=== PATIENT | male | born 1960 | race African-American/Black ===

== ENCOUNTER 2016-07-21 14:51 | Inpatient (IN) | payer OTHER ==
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
[2016-07-21] MEDS ORDERED: MAG HYDROX/AL HYDROX/SIMETH 30 ML UNIT-DOSE CUP PO PRN (17:17)
[2016-07-21] MEDS ORDERED: LOPERAMIDE HCL 2 MG CAPSULE PO PRN (17:17)
[2016-07-21] MEDS ORDERED: guaiFENesin/D-METHORPHAN HB 10 ML UNIT-DOSE CUPS PO PRN (17:17)
[2016-07-21] MEDS ORDERED: NICOTINE POLACRILEX 2 MG GUM BUC PRN (17:17)
[2016-07-21] MEDS ORDERED: chlordiazePOXIDE HCL 25 MG CAPSULE PO PRN (17:17)
[2016-07-21] MEDS ORDERED: MENTHOL/PHENOL 1 EACH UD MM PRN (17:17)
[2016-07-21] MEDS ORDERED: MAGNESIUM CITRATE 300 ML BOTTLE PO PRN (17:17)
[2016-07-21] MEDS ORDERED: MAGNESIUM HYDROX 2400MG/30ML ORAL SUSPENSION 30 ML CUP PO PRN (17:17)
[2016-07-21] MEDS ORDERED: hydrOXYzine PAMOATE 50 MG CAPSULE (FP) PO PRN (17:17)
[2016-07-21] MEDS ORDERED: P-EPHED 60MG/TRIPROLIDI 2.5MG TABLET PO PRN (17:17)
[2016-07-21] MEDS ORDERED: cloNIDine HCL 0.1 MG TABLET PO PRN (17:21)
[2016-07-21] MEDS ORDERED: ALBUTEROL SO4 6.7 GM HFA INHALER IH PRN (17:22)
[2016-07-21] MEDS ORDERED: ALBUTEROL SO4 2.5/IPRATROPIUM 0.5 INH SOL 3 ML VIAL.NEB. NEB PRN (17:22)
[2016-07-21] MEDS ORDERED: CYCLOBENZAPRINE HCL 10 MG TABLET (FP) PO PRN (17:29)
[2016-07-21 17:34] VITALS: BMI 28.3
[2016-07-21] MEDS ORDERED: AZITHROMYCIN 250 MG TABLET (FP) PO ONE (17:45)
[2016-07-21] MEDS ORDERED: chlordiazePOXIDE HCL 25 MG CAPSULE PO ONE (17:45)
[2016-07-21] MEDS: predniSONE 20 MG TABLET (UD) PO SCH (18:12)
[2016-07-21] MEDS: NAPROXEN 500 MG TABLET (FP) PO PRN (18:13)
[2016-07-21] MEDS ORDERED: PNEUMOCOCCAL 23 VACCINE 0.5 ML VIAL IM ONE (18:58)
--- NOTE | 2016-07-21 19:00 | PN ---
[facility] Progress Note Note: 1816 PM RECEIVED PHARMACIST CALL PATIENT HAS LUNG PROBLEM SHOULD NOT RECEIVE PNEUMONIA 13 VACCINE PNEUMOVAX ORDER CONTINUE DETOX
[2016-07-21] MEDS ORDERED: diphenhydrAMINE HCL 50 MG CAPSULE PO PRN (22:00)
[2016-07-21] MEDS: RANITIDINE HCL 150 MG TABLET (FP) PO SCH (23:11)
[2016-07-21] MEDS: THIAMINE HCL 100 MG TABLET (FP) PO SCH (23:11)
[2016-07-21] MEDS: GABAPENTIN 100 MG CAPSULE (FP) PO SCH (23:11)
[2016-07-21] MEDS: chlordiazePOXIDE HCL 25 MG CAPSULE PO SCH (23:11)
[2016-07-21 23:14] LABS: URINE APPEARANCE CLEAR; URINE BILIRUBIN NEGATIVE (NEGATIVE); URINE BLOOD NEGATIVE (NEGATIVE); URINE COLOR STRAW; URINE GLUCOSE (UA) NEGATIVE (NEGATIVE); URINE KETONE NEGATIVE (NEGATIVE); URINE LEUK ESTERASE NEGATIVE (NEGATIVE); URINE NITRITE NEGATIVE (NEGATIVE); URINE PROTEIN NEGATIVE (NEGATIVE); URINE UROBILINOGEN NEGATIVE E.U./dl (0.2-1.0)
[2016-07-22] MEDS: chlordiazePOXIDE HCL 25 MG CAPSULE PO SCH ×4 (06:45→23:39)
[2016-07-22] MEDS: GABAPENTIN 100 MG CAPSULE (FP) PO SCH ×3 (06:47→23:39)
[2016-07-22 10:32] LABS: MCH 27.9 pg (25.7-33.7); MCHC 33.1 g/dl (32.0-35.9); MEAN CELL VOLUME 84.3 fl (80-96); PLATELET COUNT 467 K/MM3 (134-434); RDW 15.1 % (11.9-15.9); WHITE BLOOD COUNT 5.7 K/mm3 (4.0-10.0)
[2016-07-22] MEDS: RANITIDINE HCL 150 MG TABLET (FP) PO SCH ×2 (11:00→23:39)
[2016-07-22] MEDS: PRENATAL VITAMINS W/ FOLIC ACID TABLET (FP) PO SCH (11:00)
[2016-07-22] MEDS: TAMSULOSIN HCL 0.4 MG CAP.ER.24H (FP) PO SCH (11:00)
[2016-07-22] MEDS: AZITHROMYCIN 250 MG TABLET (FP) PO SCH (11:00)
[2016-07-22] MEDS: NICOTINE 14 MG/24 HOURS TOPICAL PATCH TD SCH (11:00)
[2016-07-22] MEDS: predniSONE 20 MG TABLET (UD) PO SCH (11:00)
[2016-07-22] MEDS: FLUTICASONE PROP 0.05% 16 GM NASAL SPRAY NS SCH (11:00)
[2016-07-22] MEDS: amLODIPine BESYLATE 5 MG TABLET (FP) PO SCH (11:00)
[2016-07-22 11:03] LABS: ALBUMIN 3.4 g/dl (3.4-5.0); ALK PHOS 76 U/L (45-117); ANION GAP 8 (8-16); BILIRUBIN,TOTAL 0.5 mg/dL (0.2-1.0); CALCIUM 9.1 mg/dL (8.5-10.1); CO2 27 mmol/L (21-32); CREATININE 0.6 mg/dL (0.7-1.3); GLUCOSE,RANDOM 122 mg/dL (74-106); SGOT/AST 16 U/L (15-37); SGPT/ALT 25 U/L (12-78); TOT PROT 6.6 g/dl (6.4-8.2)
[2016-07-22 11:25] LABS: HIV 1 & 2 AB NEGATIVE; HIV 1 AGp24 NEGATIVE
[2016-07-22] MEDS ORDERED: PNEUMOC 13-VAL CONJ-DIP CRM/PF 0.5 ML DISP.SYRIN IM ONE (12:00)
[2016-07-22] MEDS ORDERED: INFLUENZA VACCINE 45 MCG/0.5 ML (MDV 16-17) IM ONE (12:00)
--- NOTE | 2016-07-22 12:35 | PN ---
[facility] CIWA - CIWA Score Nausea/Vomitin Muscle Tremors: 3 Anxiety: 2 Agitation: 2 Paroxysmal Sweats: 1-Minimal Palms Moist Orientation: 0-Oriented Tacttile Disturbances: 1-Very Mild Itch/Numbness Auditory Disturbances: 1-Very Mild Visual Disturbances: 1-Very Mild Sensitivity Headache: 2-Mild CIWA-Ar Total Score: 16 S Progress Note (SOAP) Subjective: alert,irritable,anxious,interrupted sleep,tremor Objective: 07/22/16 12:32 Vital Signs Temperature 97.9 F 07/22/16 06:00 Pulse Rate 77 07/22/16 06:00 Respiratory Rate 18 07/22/16 06:00 Blood Pressure 134/71 07/22/16 06:00 O2 Sat by Pulse Oximetry (%) ekg nsr,inverted t in avl no chest pain,no sob,no dizziness Laboratory Last Values WBC 5.7 K/mm3 (4.0-10.0) 07/22/16 07:50 RBC 4.62 M/mm3 (4.00-5.60) 07/22/16 07:50 Hgb 12.9 GM/dL (11.7-16.9) 07/22/16 07:50 Hct 39.0 % (35.4-49) 07/22/16 07:50 MCV 84.3 fl (80-96) 07/22/16 07:50 MCHC 33.1 g/dl (32.0-35.9) 07/22/16 07:50 RDW 15.1 % (11.9-15.9) 07/22/16 07:50 Plt Count 467 K/MM3 (134-434) H D 07/22/16 07:50 MPV 7.0 fl (7.5-11.1) L 07/22/16 07:50 Sodium 129 mmol/L (136-145) L 07/22/16 07:50 Potassium 4.1 mmol/L (3.5-5.1) 07/22/16 07:50 Chloride 94 mmol/L (98-107) L 07/22/16 07:50 Carbon Dioxide 27 mmol/L (21-32) 07/22/16 07:50 Anion Gap 8 (8-16) 07/22/16 07:50 BUN 11 mg/dL (7-18) 07/22/16 07:50 Creatinine 0.6 mg/dL (0.7-1.3) L D 07/22/16 07:50 Creat Clearance w eGFR > 60 (>60) 07/22/16 07:50 POC Glucometer 107 UNITS (()) 07/22/16 06:41 Random Glucose 122 mg/dL (74-106) H D 07/22/16 07:50 Calcium 9.1 mg/dL (8.5-10.1) 07/22/16 07:50 Total Bilirubin 0.5 mg/dL (0.2-1.0) D 07/22/16 07:50 AST 16 U/L (15-37) D 07/22/16 07:50 ALT 25 U/L (12-78) D 07/22/16 07:50 Alkaline Phosphatase 76 U/L (45-117) D 07/22/16 07:50 Total Protein 6.6 g/dl (6.4-8.2) 07/22/16 07:50 Albumin 3.4 g/dl (3.4-5.0) 07/22/16 07:50 Urine Color Straw 07/21/16 19:51 Urine Appearance Clear 07/21/16 19:51 Urine pH 7.0 (5.0-8.0) 07/21/16 19:51 Ur Specific [place] 1.006 (1.001-1.035) 07/21/16 19:51 Urine Protein Negative (NEGATIVE) 07/21/16 19:51 Urine Glucose (UA) Negative (NEGATIVE) 07/21/16 19:51 Urine Ketones Negative (NEGATIVE) 07/21/16 19:51 Urine Blood Negative (NEGATIVE) 07/21/16 19:51 Urine Nitrite Negative (NEGATIVE) 07/21/16 19:51 Urine Bilirubin Negative (NEGATIVE) 07/21/16 19:51 Urine Urobilinogen Negative E.U./dl (0.2-1.0) 07/21/16 19:51 Ur Leukocyte Esterase Negative (NEGATIVE) 07/21/16 19:51 RPR Titer Nonreactive (NONREACTIVE) 07/22/16 07:50 HIV 1&2 Antibody Screen Negative 07/22/16 07:50 HIV P24 Antigen Negative 07/22/16 07:50 Assessment: 07/22/16 12:34 withdrawal symptom Plan: continue detox,repeat bmp in am,initial na 129
--- NOTE | 2016-07-22 17:41 | CONSULT ---
[facility] Psychiatric Consult - Data Date of interview: 07/22/16 Admission source: [facility] Identifying data: This is one of multiple admissions to [facility] for this 55 y/ o AA male seeking detox treatment on for alcohol dependence.Patient is single without children,homeless,unemployed and supported on SSI benefits. Substance Abuse History: - Smoking Cessation. Smoking history: Current every day smoker. Have you smoked in the past 12 months: Yes. Aproximately how many cigarettes per day: 10. Cigars Per Day: 0. Hx Chewing Tobacco Use: No. Initiated information on smoking cessation: Yes. 'Breaking Loose' booklet given : 07/21/16. - Substance & Tx. History. Hx Alcohol Use: Yes. Hx Substance Use : No. Substance Use Type: Alcohol. Hx Substance Use Treatment: Yes. - Substances Abused. Alcohol. Route: Oral. Frequency: Daily. Amount used: 6 -8 cans of beers 24 oz. Age of first use: 14. Date of Last Use: 07/21/16. Confirmed by patient. Medical History: Significant for a history of hypertension,bronchial asthma, diabetes mellitus,peripheral neuropathy and past treatment for syphilis. Psychiatric History: Diagnosed with paranoid schizophrenia.First psychiatric hospitalization at age 20 but he was seen by a psychiatrist,for the first time, at age 12.Noted family history of Schizophrenia (father and two siblings).Mr East admits to multiple psychiatric hospitalizations ([facility], [place] and [facility]).He states that he gets his outpatient psychiatric services at [facility] (discharged from that institution a few days ago).Patient reports being on prolixin 20 mg daily and cogentin.He denies history of suicide attempts. Physical/Sexual Abuse/Trauma History: Patient denies. Mental Status Exam - Mental Status Exam Alert and Oriented to: Time, Place, Person Cognitive Function: Grossly Intact Patient Appearance: Unkempt, Disheveled Mood: Withdrawn, Hopeful Affect: Blunted Patient Behavior: Fatigued, Appropriate, Cooperative Speech Pattern: Clear, Appropriate Voice Loudness: Normal Thought Process: Goal Oriented Thought Disorder: Bizarre Hallucinations: Denies Suicidal Ideation: Denies Homicidal Ideation: Denies Insight/Judgement: Poor Sleep: Well Appetite: Good Muscle strength/Tone: Normal Gait/Station: Normal Psychiatric Findings - Problem List ([place] 1, 2,3) (1) Alcohol dependence with uncomplicated withdrawal Current Visit: Yes Status: Acute (2) Nicotine dependence Current Visit: Yes Status: Acute Qualifiers: Nicotine product type: cigarettes Substance use status: uncomplicated Qualified Code(s): F17.210 - Nicotine dependence, cigarettes, uncomplicated (3) Paranoid schizophrenia Current Visit: Yes Status: Chronic (4) Arthritis Current Visit: Yes Status: Chronic Comment: NEPROXIN (5) Asthma Current Visit: Yes Status: Chronic Qualifiers: Asthma severity: mild persistent Asthma complication type: with status asthmaticus Qualified Code(s): J45.32 - Mild persistent asthma with status asthmaticus Comment: VENTOLIN+NEBULIZER+PREDNISON+AZITHROMYCIN (6) BPH (benign prostatic hyperplasia) Current Visit: Yes Status: Chronic Qualifiers: Prostatic enlargement morphology: non-nodular Lower urinary tract symptom presence: symptoms present Qualified Code(s): N40.1 - Enlarged prostate with lower urinary tract symptoms Comment: TAMSULOSIN 0.4 MG EXTEND (7) Neuropathy Current Visit: Yes Status: Chronic Comment: NEURONTIN 100 MG TID (8) GERD (gastroesophageal reflux disease) Current Visit: Yes Status: Chronic Qualifiers: Esophagitis presence: without esophagitis Qualified Code(s): K21.9 - Gastro-esophageal reflux disease without esophagitis Comment: ZANTAC (9) Diabetes mellitus Current Visit: Yes Status: Chronic Qualifiers: Diabetes mellitus type: type 2 Diabetes mellitus complication status: with neurologic complications Diabetes mellitus complication detail: with unspecified neuropathy Diabetes mellitus fci insulin use: without long term care social worker use Qualified Code(s): E11.40 - Type 2 diabetes mellitus with diabetic neuropathy, unspecified; Z79.4 - group home (current) use of insulin Comment: FINGER STICK 137 NOT ON ANY DM MEDICATION FINGER STICK OD (10) Essential hypertension Current Visit: Yes Status: Chronic Comment: AMLODIPINE CLONIDIN PRN - Initial Treatment Plan Initial Treatment Plan: Psychoeducation.Detoxification.Medications:prolixin 10 mg po bid + cogentin 0.5 mg po bid.Side effects/ benefits discussed with patient.Made aware of risks of abnormal involuntary movements,dyskinesias, neuroleptic malignant syndrome akathisia Prolixin) and anticholinergic manifestations (dry mouth,constipation,urinary hesitancy,blurred vision) .Patient indicated his awareness of these risks and he consented (verbally) to take these drugs.Verified by review of pharmacy claims (filled scripts of ).Observation.
[2016-07-22] MEDS: NAPROXEN 500 MG TABLET (FP) PO PRN (17:57)
[2016-07-22] MEDS ORDERED: BENZTROPINE MESYLATE 1 MG TABLET (FP) PO SCH (22:00)
[2016-07-22] MEDS: BENZTROPINE MESYLATE 1 MG TABLET (FP) PO SCH (23:38)
[2016-07-22] MEDS: THIAMINE HCL 100 MG TABLET (FP) PO SCH (23:39)
[2016-07-23] MEDS: chlordiazePOXIDE HCL 25 MG CAPSULE PO SCH ×4 (06:41→17:47)
[2016-07-23] MEDS: GABAPENTIN 100 MG CAPSULE (FP) PO SCH ×3 (06:41→23:24)
[2016-07-23] MEDS ORDERED: BACITRACIN 0.9 GM PACKET ONE (09:32)
[2016-07-23 10:04] LABS: CALCIUM 8.7 mg/dL (8.5-10.1)
[2016-07-23 10:07] LABS: CREATININE 0.7 mg/dL (0.7-1.3)
[2016-07-23] MEDS: PRENATAL VITAMINS W/ FOLIC ACID TABLET (FP) PO SCH (10:55)
[2016-07-23] MEDS: TAMSULOSIN HCL 0.4 MG CAP.ER.24H (FP) PO SCH (10:56)
[2016-07-23] MEDS: amLODIPine BESYLATE 5 MG TABLET (FP) PO SCH (10:56)
[2016-07-23] MEDS: RANITIDINE HCL 150 MG TABLET (FP) PO SCH ×2 (10:56→23:24)
[2016-07-23] MEDS: BENZTROPINE MESYLATE 1 MG TABLET (FP) PO SCH ×2 (10:57→23:24)
[2016-07-23] MEDS: predniSONE 20 MG TABLET (UD) PO SCH (10:57)
[2016-07-23] MEDS: FLUTICASONE PROP 0.05% 16 GM NASAL SPRAY NS SCH (10:59)
[2016-07-23] MEDS: AZITHROMYCIN 250 MG TABLET (FP) PO SCH (11:00)
[2016-07-23] MEDS: NICOTINE 14 MG/24 HOURS TOPICAL PATCH TD SCH (11:00)
--- NOTE | 2016-07-23 12:43 | PN ---
[facility] CIWA - CIWA Score Nausea/Vomitin-No Nausea/No Vomiting Muscle Tremors: 3 Anxiety: 3 Agitation: 4-Moderately Restless Paroxysmal Sweats: 3 Orientation: 0-Oriented Tacttile Disturbances: 0-None Auditory Disturbances: 0-None Visual Disturbances: 0-None Headache: 0-None Present CIWA-Ar Total Score: 13 BHS Progress Note (SOAP) Subjective: ANXIETY,TREMORS,SWEATING,INTERRUPTED SLEEP,RESTLESS Objective: 07/23/16 12:43 Vital Signs - 8 hr 07/23/16 07/23/16 06:00 10:00 Temperature 97.0 F L 96.1 F L Pulse Rate 71 88 Respiratory 18 20 Rate Blood Pressure 127/94 144/88 Laboratory Last Values WBC 5.7 K/mm3 (4.0-10.0) 07/22/16 07:50 RBC 4.62 M/mm3 (4.00-5.60) 07/22/16 07:50 Hgb 12.9 GM/dL (11.7-16.9) 07/22/16 07:50 Hct 39.0 % (35.4-49) 07/22/16 07:50 MCV 84.3 fl (80-96) 07/22/16 07:50 MCHC 33.1 g/dl (32.0-35.9) 07/22/16 07:50 RDW 15.1 % (11.9-15.9) 07/22/16 07:50 Plt Count 467 K/MM3 (134-434) H D 07/22/16 07:50 MPV 7.0 fl (7.5-11.1) L 07/22/16 07:50 Sodium 129 mmol/L (136-145) L 07/23/16 07:20 Potassium 4.1 mmol/L (3.5-5.1) 07/23/16 07:20 Chloride 92 mmol/L (98-107) L 07/23/16 07:20 Carbon Dioxide 27 mmol/L (21-32) 07/23/16 07:20 Anion Gap 10 (8-16) 07/23/16 07:20 BUN 13 mg/dL (7-18) 07/23/16 07:20 Creatinine 0.7 mg/dL (0.7-1.3) 07/23/16 07:20 Creat Clearance w eGFR > 60 (>60) 07/22/16 07:50 POC Glucometer 84 UNITS (()) 07/23/16 06:39 Random Glucose 71 mg/dL (74-106) L D 07/23/16 07:20 Calcium 8.7 mg/dL (8.5-10.1) 07/23/16 07:20 Total Bilirubin 0.5 mg/dL (0.2-1.0) D 07/22/16 07:50 AST 16 U/L (15-37) D 07/22/16 07:50 ALT 25 U/L (12-78) D 07/22/16 07:50 Alkaline Phosphatase 76 U/L (45-117) D 07/22/16 07:50 Total Protein 6.6 g/dl (6.4-8.2) 07/22/16 07:50 Albumin 3.4 g/dl (3.4-5.0) 07/22/16 07:50 Urine Color Straw 07/21/16 19:51 Urine Appearance Clear 07/21/16 19:51 Urine pH 7.0 (5.0-8.0) 07/21/16 19:51 Ur Specific [place] 1.006 (1.001-1.035) 07/21/16 19:51 Urine Protein Negative (NEGATIVE) 07/21/16 19:51 Urine Glucose (UA) Negative (NEGATIVE) 07/21/16 19:51 Urine Ketones Negative (NEGATIVE) 07/21/16 19:51 Urine Blood Negative (NEGATIVE) 07/21/16 19:51 Urine Nitrite Negative (NEGATIVE) 07/21/16 19:51 Urine Bilirubin Negative (NEGATIVE) 07/21/16 19:51 Urine Urobilinogen Negative E.U./dl (0.2-1.0) 07/21/16 19:51 Ur Leukocyte Esterase Negative (NEGATIVE) 07/21/16 19:51 RPR Titer Nonreactive (NONREACTIVE) 07/22/16 07:50 HIV 1&2 Antibody Screen Negative 07/22/16 07:50 HIV P24 Antigen Negative 07/22/16 07:50 LABS NOTED Assessment: 07/23/16 12:44 WITHDRAWAL SX. Plan: CONTINUE DETOX
[2016-07-23] MEDS: THIAMINE HCL 100 MG TABLET (FP) PO SCH (23:24)
[2016-07-23] MEDS: chlordiazePOXIDE 5 MG CAPSULE PO SCH (23:24)
[2016-07-24] MEDS: ACETAMINOPHEN 325 MG TABLET (FP) PO PRN ×2 (04:35→06:23)
[2016-07-24] MEDS: chlordiazePOXIDE 5 MG CAPSULE PO SCH ×3 (06:20→17:45)
[2016-07-24] MEDS: GABAPENTIN 100 MG CAPSULE (FP) PO SCH ×3 (06:20→22:55)
--- NOTE | 2016-07-24 10:39 | PN ---
S Progress Note (SOAP) Subjective: ALERT ,IRRITABLE,ANXIOUS,INTERRUPTED SLEEP,TREMOR,SUPERFICIAL ULCER MEDIAL ASPECT OF RIGHT ANKLE SMALL 0.2CM CLEAN Objective: 07/24/16 10:36 Vital Signs Temperature 98.1 F 07/24/16 10:19 Pulse Rate 114 H 07/24/16 10:19 Respiratory Rate 18 07/24/16 10:19 Blood Pressure 130/63 07/24/16 10:19 O2 Sat by Pulse Oximetry (%) Assessment: 07/24/16 10:38 WITHDRAWAL SYMPTOM Plan: CONTINUE DETOX,DISCHARGE IN AM
[2016-07-24] MEDS: PRENATAL VITAMINS W/ FOLIC ACID TABLET (FP) PO SCH (10:56)
[2016-07-24] MEDS: RANITIDINE HCL 150 MG TABLET (FP) PO SCH ×2 (10:57→22:55)
[2016-07-24] MEDS: predniSONE 20 MG TABLET (UD) PO SCH (10:58)
[2016-07-24] MEDS: BENZTROPINE MESYLATE 1 MG TABLET (FP) PO SCH ×2 (10:58→22:55)
[2016-07-24] MEDS: amLODIPine BESYLATE 5 MG TABLET (FP) PO SCH (10:58)
[2016-07-24] MEDS: TAMSULOSIN HCL 0.4 MG CAP.ER.24H (FP) PO SCH (10:59)
[2016-07-24] MEDS: AZITHROMYCIN 250 MG TABLET (FP) PO SCH (10:59)
[2016-07-24] MEDS: FLUTICASONE PROP 0.05% 16 GM NASAL SPRAY NS SCH (11:00)
[2016-07-24] MEDS: NICOTINE 14 MG/24 HOURS TOPICAL PATCH TD SCH (11:02)
[2016-07-24] MEDS: BACITRACIN 0.9 GM PACKET TP SCH ×2 (11:08→22:55)
[2016-07-24] MEDS: THIAMINE HCL 100 MG TABLET (FP) PO SCH (22:55)
[2016-07-24] MEDS: chlordiazePOXIDE HCL 10 MG CAPSULE PO SCH (23:09)
[2016-07-25] MEDS: chlordiazePOXIDE HCL 10 MG CAPSULE PO SCH (06:06)
[2016-07-25] MEDS: GABAPENTIN 100 MG CAPSULE (FP) PO SCH (06:07)
--- NOTE | 2016-07-25 08:54 | DS ---
[facility] Detox Discharge Summary Admission Date: 07/21/16 - History Present History: Alcohol Dependence - Physical Exam Results Vital Signs: Vital Signs Temperature 97.4 F L 07/25/16 06:49 Pulse Rate 100 H 07/25/16 06:49 Respiratory Rate 20 07/25/16 06:49 Blood Pressure 133/72 07/25/16 06:49 O2 Sat by Pulse Oximetry (%) - Treatment Hospital Course: Detox Protocol Followed, Detoxed Safely, Responded well, Discharged Condition Good - Medication Discharge Medications: Ambulatory Orders Gabapentin [Neurontin -] 100 mg PO TID 11/05/15 Naproxen [Naprosyn -] 500 mg PO BID 11/05/15 Benztropine Mesylate [Cogentin -] 1 mg PO BID #60 tablet 12/07/15 Fluphenazine HCl [Prolixin -] 20 mg PO BID 07/21/16 Benztropine Mesylate [Cogentin -] 1 mg PO BID #60 tablet 07/22/16 Fluphenazine HCl [Prolixin -] 10 mg PO BID #60 tablet 07/22/16 - Diagnosis (1) Alcohol dependence with uncomplicated withdrawal Current Visit: Yes Status: Chronic (2) Nicotine dependence Current Visit: Yes Status: Chronic Qualifiers: Nicotine product type: cigarettes Substance use status: uncomplicated Qualified Code(s): F17.210 - Nicotine dependence, cigarettes, uncomplicated (3) Arthritis Current Visit: Yes Status: Chronic (4) Asthma Current Visit: Yes Status: Chronic Qualifiers: Asthma severity: mild persistent Asthma complication type: with status asthmaticus Qualified Code(s): J45.32 - Mild persistent asthma with status asthmaticus (5) BPH (benign prostatic hyperplasia) Current Visit: Yes Status: Chronic Qualifiers: Prostatic enlargement morphology: non-nodular Lower urinary tract symptom presence: symptoms present Qualified Code(s): N40.1 - Enlarged prostate with lower urinary tract symptoms (6) Diabetes mellitus Current Visit: Yes Status: Chronic Qualifiers: Diabetes mellitus type: type 2 Diabetes mellitus complication status: with neurologic complications Diabetes mellitus complication detail: with unspecified neuropathy Diabetes mellitus terminal gauger supervisor insulin use: without terminal gauger supervisor use Qualified Code(s): E11.40 - Type 2 diabetes mellitus with diabetic neuropathy, unspecified; Z79.4 - exterminator termite (current) use of insulin (7) Essential hypertension Current Visit: Yes Status: Chronic (8) GERD (gastroesophageal reflux disease) Current Visit: Yes Status: Chronic Qualifiers: Esophagitis presence: without esophagitis Qualified Code(s): K21.9 - Gastro-esophageal reflux disease without esophagitis (9) Neuropathy Current Visit: Yes Status: Chronic (10) Paranoid schizophrenia Current Visit: Yes Status: Chronic - AMA Did Patient Leave Against Medical Advice: No
[2016-07-25] MEDS: BACITRACIN 0.9 GM PACKET TP SCH (10:11)
[2016-07-25] MEDS: BENZTROPINE MESYLATE 1 MG TABLET (FP) PO SCH (10:11)
[2016-07-25] MEDS: amLODIPine BESYLATE 5 MG TABLET (FP) PO SCH (10:11)
[2016-07-25] MEDS: PRENATAL VITAMINS W/ FOLIC ACID TABLET (FP) PO SCH (10:11)
[2016-07-25] MEDS: TAMSULOSIN HCL 0.4 MG CAP.ER.24H (FP) PO SCH (10:12)
[2016-07-25] MEDS: RANITIDINE HCL 150 MG TABLET (FP) PO SCH (10:12)
[2016-07-25] MEDS: AZITHROMYCIN 250 MG TABLET (FP) PO SCH (10:12)
[2016-07-25] MEDS: FLUTICASONE PROP 0.05% 16 GM NASAL SPRAY NS SCH (10:14)
[2016-07-25] MEDS: NICOTINE 14 MG/24 HOURS TOPICAL PATCH TD SCH (10:14)
[2016-07-25 10:32] VITALS: BP 148/91; PULSE 84; TEMP 98.3
== END 2016-07-25 10:16 | disposition home or self-care (01) | DRG 775 ==
LOC: YASAS 14:51 → Y6N 16:20
PROVIDERS: ADMIT Internal Medicine Addiction Medicine; ATTEND Internal Medicine Addiction Medicine
PROC: HZ2ZZZZ Detoxification Services for Substance Abuse Treatment (ICD-10-PCS; principal; 2016-07-21)
DX: F10.230 Alcohol dependence with withdrawal, uncomplicated (principal); F17.210 Nicotine dependence, cigarettes, uncomplicated; F20.0 Paranoid schizophrenia; M12.9 Arthropathy, unspecified; J45.32 Mild persistent asthma with status asthmaticus; J44.9 Chronic obstructive pulmonary disease, unspecified; N40.1 Benign prostatic hyperplasia with lower urinary tract symptoms; E11.40 Type 2 diabetes mellitus with diabetic neuropathy, unspecified; Z79.4 Long term (current) use of insulin; I10 Essential (primary) hypertension; K21.9 Gastro-esophageal reflux disease without esophagitis; Z87.438 Personal history of other diseases of male genital organs
CPT/HCPCS: 36415; 80048; 80053; 81003; 85027; 86593; 86803; 87389; 93005; 93010

== ENCOUNTER 2016-08-18 08:26 | Inpatient (IN) | payer OTHER ==
[2016-08-18] MEDS ORDERED: INFLUENZA VACCINE 45 MCG/0.5 ML (MDV 16-17) IM ONE (10:05)
[2016-08-18 10:14] VITALS: BMI 29.2
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
[2016-08-18] MEDS ORDERED: MAGNESIUM CITRATE 300 ML BOTTLE PO PRN (12:32)
[2016-08-18] MEDS ORDERED: LOPERAMIDE HCL 2 MG CAPSULE PO PRN (12:32)
[2016-08-18] MEDS ORDERED: IBUPROFEN 400 MG TABLET (FP) PO PRN (12:32)
[2016-08-18] MEDS ORDERED: diphenhydrAMINE HCL 50 MG CAPSULE PO PRN (12:32)
[2016-08-18] MEDS ORDERED: MAG HYDROX/AL HYDROX/SIMETH 30 ML UNIT-DOSE CUP PO PRN (12:32)
[2016-08-18] MEDS ORDERED: chlordiazePOXIDE HCL 25 MG CAPSULE PO PRN (12:32)
[2016-08-18] MEDS ORDERED: P-EPHED 60MG/TRIPROLIDI 2.5MG TABLET PO PRN (12:32)
[2016-08-18] MEDS ORDERED: ACETAMINOPHEN 325 MG TABLET (FP) PO PRN (12:32)
[2016-08-18] MEDS ORDERED: hydrOXYzine PAMOATE 50 MG CAPSULE (FP) PO PRN (12:32)
[2016-08-18] MEDS ORDERED: MAGNESIUM HYDROX 2400MG/30ML ORAL SUSPENSION 30 ML CUP PO PRN (12:32)
[2016-08-18] MEDS ORDERED: MENTHOL/PHENOL 1 EACH UD MM PRN (12:32)
[2016-08-18] MEDS ORDERED: ALBUTEROL SO4 2.5/IPRATROPIUM 0.5 INH SOL 3 ML VIAL.NEB. NEB ONE (13:18)
[2016-08-18] MEDS ORDERED: chlordiazePOXIDE HCL 25 MG CAPSULE PO ONE (13:19)
[2016-08-18] MEDS: GABAPENTIN 100 MG CAPSULE (FP) PO SCH ×2 (13:24→22:55)
[2016-08-18] MEDS: AMMONIUM LACTATE 12% LOTION 225 GM BOTTLE TP SCH ×2 (13:26→22:54)
[2016-08-18 15:27] LABS: HIV 1 & 2 AB NEGATIVE; HIV 1 AGp24 NEGATIVE
--- NOTE | 2016-08-18 16:10 | EKG ---
Test Reason : Blood Pressure : / mmHG Vent. Rate : 092 BPM Atrial Rate : 092 BPM P-R Int : 150 ms QRS Dur : 082 ms QT Int : 370 ms P-R-T Axes : 058 -38 053 degrees QTc Int : 457 ms NORMAL SINUS RHYTHM LEFT ANTERIOR FASCICULAR BLOCK Confirmed by MERVAT CLARK MD ([id number]) on 08/18/2016 4:10:40 PM Referred By: Akira Daugherty Confirmed By:MERVAT CLARK MD
[2016-08-18] MEDS: chlordiazePOXIDE HCL 25 MG CAPSULE PO SCH ×2 (17:58→22:54)
[2016-08-18 20:55] LABS: URINE APPEARANCE CLEAR; URINE BILIRUBIN NEGATIVE (NEGATIVE); URINE BLOOD NEGATIVE (NEGATIVE); URINE COLOR LTYELLOW; URINE GLUCOSE (UA) NEGATIVE (NEGATIVE); URINE KETONE NEGATIVE (NEGATIVE); URINE LEUK ESTERASE NEGATIVE (NEGATIVE); URINE NITRITE NEGATIVE (NEGATIVE); URINE PROTEIN NEGATIVE (NEGATIVE); URINE UROBILINOGEN NEGATIVE E.U./dl (0.2-1.0)
[2016-08-18] MEDS: NAPROXEN 500 MG TABLET (FP) PO SCH (22:55)
[2016-08-18] MEDS: THIAMINE HCL 100 MG TABLET (FP) PO SCH (22:55)
[2016-08-18] MEDS: RANITIDINE HCL 150 MG TABLET (FP) PO SCH (22:55)
[2016-08-19] MEDS: GABAPENTIN 100 MG CAPSULE (FP) PO SCH ×3 (05:56→22:43)
[2016-08-19] MEDS: chlordiazePOXIDE HCL 25 MG CAPSULE PO SCH ×4 (05:56→22:44)
[2016-08-19] MEDS: TAMSULOSIN HCL 0.4 MG CAP.ER.24H (FP) PO SCH (09:16)
[2016-08-19] MEDS ORDERED: INFLUENZA VACCINE 45 MCG/0.5 ML (MDV 16-17) IM ONE (10:05)
[2016-08-19 10:31] LABS: MCH 28.6 pg (25.7-33.7); MCHC 33.4 g/dl (32.0-35.9); MEAN CELL VOLUME 85.5 fl (80-96); MEAN PLT VOLUME 7.4 fl (7.5-11.1); PLATELET COUNT 336 K/MM3 (134-434); WHITE BLOOD COUNT 5.5 K/mm3 (4.0-10.0)
[2016-08-19] MEDS: amLODIPine BESYLATE 5 MG TABLET (FP) PO SCH (10:56)
[2016-08-19] MEDS: RANITIDINE HCL 150 MG TABLET (FP) PO SCH ×2 (10:56→22:43)
[2016-08-19] MEDS: PRENATAL VITAMINS W/ FOLIC ACID TABLET (FP) PO SCH (10:57)
[2016-08-19] MEDS: NAPROXEN 500 MG TABLET (FP) PO SCH ×2 (10:57→22:43)
[2016-08-19] MEDS: AMMONIUM LACTATE 12% LOTION 225 GM BOTTLE TP SCH ×2 (10:57→22:43)
[2016-08-19] MEDS: FLUTICASONE PROP 0.05% 16 GM NASAL SPRAY NS SCH (10:57)
--- NOTE | 2016-08-19 11:23 | PN ---
S CIWA - CIWA Score Nausea/Vomitin-No Nausea/No Vomiting Muscle Tremors: 3 Anxiety: 4-Mod. Anxious/Guarded Agitation: 3 Paroxysmal Sweats: 3 Orientation: 0-Oriented Tacttile Disturbances: 2-Mild Itch/Numbness/Burn Auditory Disturbances: 0-None Visual Disturbances: 0-None Headache: 2-Mild CIWA-Ar Total Score: 17 BHS Progress Note (SOAP) Subjective: ANXIETY,TREMORS,SWEATING,INTERRUPTED SLEEP,RESTLESS,MILD HEADACHE Objective: 08/19/16 11:22 Vital Signs - 8 hr 08/19/16 08/19/16 08/19/16 03:25 06:33 11:02 Temperature 97.7 F 96.8 F L Pulse Rate 95 H 90 Respiratory 18 18 18 Rate Blood Pressure 162/91 152/95 Laboratory Tests 08/18/16 08/18/16 08/18/16 10:49 11:50 16:22 WBC RBC Hgb Hct MCV MCHC RDW Plt Count MPV POC Glucometer 87 116 Urine Color Urine Appearance Urine pH Ur Specific [place] Urine Protein Urine Glucose (UA) Urine Ketones Urine Blood Urine Nitrite Urine Bilirubin Urine Urobilinogen Ur Leukocyte Esterase HIV 1&2 Antibody Screen Negative HIV P24 Antigen Negative 08/18/16 08/19/16 08/19/16 18:00 05:55 06:10 WBC 5.5 RBC 4.49 Hgb 12.8 Hct 38.4 MCV 85.5 MCHC 33.4 RDW 16.0 H Plt Count 336 D MPV 7.4 L POC Glucometer 91 Urine Color Ltyellow Urine Appearance Clear Urine pH 8.0 Ur Specific [place] 1.012 Urine Protein Negative Urine Glucose (UA) Negative Urine Ketones Negative Urine Blood Negative Urine Nitrite Negative Urine Bilirubin Negative Urine Urobilinogen Negative Ur Leukocyte Esterase Negative HIV 1&2 Antibody Screen HIV P24 Antigen LABS NOTED Assessment: 08/19/16 11:22 WITHDRAWAL SX. Plan: CONTINUE DETOX
[2016-08-19 12:04] LABS: ALBUMIN 4.1 g/dl (3.4-5.0); ALK PHOS 92 U/L (45-117); ANION GAP 11 (8-16); BILIRUBIN,TOTAL 0.6 mg/dL (0.2-1.0); CALCIUM 8.8 mg/dL (8.5-10.1); CO2 29 mmol/L (21-32); CREATININE 0.7 mg/dL (0.7-1.3); GLUCOSE,RANDOM 67 mg/dL (74-106); SGOT/AST 20 U/L (15-37); SGPT/ALT 21 U/L (12-78); TOT PROT 7.6 g/dl (6.4-8.2)
[2016-08-19] MEDS: NICOTINE POLACRILEX 4 MG GUM BUC PRN (12:22)
[2016-08-19] MEDS ORDERED: PNEUMOC 13-VAL CONJ-DIP CRM/PF 0.5 ML DISP.SYRIN IM ONE (14:34)
[2016-08-19] MEDS ORDERED: PNEUMOCOCCAL 23 VACCINE 0.5 ML VIAL IM ONE ×2 (14:39→17:00)
--- NOTE | 2016-08-19 16:59 | CONSULT ---
[facility] Psychiatric Consult - Data Date of interview: 08/19/16 Admission source: [facility] Identifying data: New admission to [facility] for this 55 y/o AA male seeking detox treatment on for alcohol dependence.Patient is single without children,homeless,unemployed and supported on SSI benefits. Substance Abuse History: - Smoking Cessation. Smoking history: Current every day smoker. Have you smoked in the past 12 months: Yes. Aproximately how many cigarettes per day: 10. Cigars Per Day: 0. Hx Chewing Tobacco Use: No. Initiated information on smoking cessation: Yes. 'Breaking Loose' booklet given : 08/18/16. - Substance & Tx. History. Hx Alcohol Use: Yes. Hx Substance Use : No. Substance Use Type: Alcohol. Hx Substance Use Treatment: Yes. - Substances Abused. Alcohol. Route: 10 cans. Frequency: Daily. Amount used : 8 to 10 cans. Age of first use: 12. Date of Last Use: 08/18/16. Discussed in this interview.Patient confimed this report. Medical History: No change since previous encounter of 07/03/2016 : hypertension ,bronchial asthma,GERD,BPH (benign prostatic hyperplasia),arthritis (walks with cane),diabetes mellitus,peripheral neuropathy and past treatment for syphilis. Psychiatric History: Psychiatric history revisited.No changes since my evaluation of 07/22/2016 :diagnosed with paranoid schizophrenia.First psychiatric hospitalization at age 20 but first contact with Psychiatry at age 12.Noted family history of Schizophrenia (father and two siblings).Mr East admits to multiple psychiatric hospitalizations ([facility],[place],[facility] and [facility]).He still gets his outpatient psychiatric services at [facility].Patient reports being on prolixin 20 mg daily and cogentin.Patient refuses to resume this regimen in this hospital course in spite of this director underwriter sales's encouragement.He denies history of suicide attempts. Physical/Sexual Abuse/Trauma History: Patient denies. Additional Comment: Urine Drug Screen Results: BZO-Benzodiazepines.Noted. Mental Status Exam - Mental Status Exam Alert and Oriented to: Time, Place, Person Cognitive Function: Grossly Intact Patient Appearance: Disheveled Mood: Hopeful, Euthymic Affect: Normal Range Patient Behavior: Fatigued, Appropriate, Cooperative (friendly) Speech Pattern: Clear Voice Loudness: Normal Thought Process: Goal Oriented Thought Disorder: Not Present Hallucinations: Denies Suicidal Ideation: Denies Homicidal Ideation: Denies Insight/Judgement: Poor Sleep: Poorly Appetite: Good Muscle strength/Tone: Normal Gait/Station: Other (moves around with a cane) Psychiatric Findings - Problem List ([place] 1, 2,3) (1) Alcohol dependence with uncomplicated withdrawal Current Visit: Yes Status: Acute (2) Nicotine dependence Current Visit: Yes Status: Acute Qualifiers: Nicotine product type: cigarettes Substance use status: uncomplicated Qualified Code(s): F17.210 - Nicotine dependence, cigarettes, uncomplicated (3) Paranoid schizophrenia Current Visit: Yes Status: Chronic (4) Arthritis Current Visit: Yes Status: Chronic (5) BPH (benign prostatic hyperplasia) Current Visit: Yes Status: Chronic Qualifiers: Prostatic enlargement morphology: non-nodular Lower urinary tract symptom presence: symptoms present Qualified Code(s): N40.1 - Enlarged prostate with lower urinary tract symptoms Comment: TAMSULOSIN 0.4 MG EXTEND (6) GERD (gastroesophageal reflux disease) Current Visit: Yes Status: Chronic Qualifiers: Esophagitis presence: without esophagitis Qualified Code(s): K21.9 - Gastro-esophageal reflux disease without esophagitis Comment: ZANTAC (7) Neuropathy Current Visit: Yes Status: Chronic Comment: NEURONTIN 100 MG TID (8) Asthma Current Visit: Yes Status: Chronic Qualifiers: Asthma severity: mild persistent Asthma complication type: with status asthmaticus Qualified Code(s): J45.32 - Mild persistent asthma with status asthmaticus Comment: VENTOLIN+NEBULIZER+PREDNISON+AZITHROMYCIN (9) Essential hypertension Current Visit: No Status: Chronic Comment: AMLODIPINE CLONIDIN PRN (10) Diabetes mellitus Current Visit: Yes Status: Chronic Qualifiers: Diabetes mellitus type: type 1 Diabetes mellitus complication status: without complication Qualified Code(s): E10.9 - Type 1 diabetes mellitus without complications (11) Insomnia Current Visit: Yes Status: Acute - Initial Treatment Plan Initial Treatment Plan: Psychoeducation.Detoxification.Patient is not receptive to psychoeducation.He declines to take prolixin at this director underwriter sales's recommendation.Made aware of risks of non-adherence to medications and the rewards inherent to compliance with [facility] care.Observation.
[2016-08-19] MEDS: THIAMINE HCL 100 MG TABLET (FP) PO SCH (22:43)
[2016-08-20] MEDS: chlordiazePOXIDE HCL 25 MG CAPSULE PO SCH ×2 (05:36→10:16)
[2016-08-20] MEDS: GABAPENTIN 100 MG CAPSULE (FP) PO SCH ×3 (05:36→22:25)
[2016-08-20] MEDS: ALBUTEROL SO4 2.5/IPRATROPIUM 0.5 INH SOL 3 ML VIAL.NEB. NEB PRN ×2 (06:38→13:17)
[2016-08-20] MEDS: PRENATAL VITAMINS W/ FOLIC ACID TABLET (FP) PO SCH (10:16)
[2016-08-20] MEDS: RANITIDINE HCL 150 MG TABLET (FP) PO SCH ×2 (10:16→22:25)
[2016-08-20] MEDS: AMMONIUM LACTATE 12% LOTION 225 GM BOTTLE TP SCH ×2 (10:17→22:26)
[2016-08-20] MEDS: TAMSULOSIN HCL 0.4 MG CAP.ER.24H (FP) PO SCH (10:17)
[2016-08-20] MEDS: FLUTICASONE PROP 0.05% 16 GM NASAL SPRAY NS SCH (10:17)
[2016-08-20] MEDS: NAPROXEN 500 MG TABLET (FP) PO SCH ×2 (10:17→22:25)
[2016-08-20] MEDS: NICOTINE POLACRILEX 4 MG GUM BUC PRN (10:21)
[2016-08-20] MEDS: amLODIPine BESYLATE 5 MG TABLET (FP) PO SCH (10:37)
--- NOTE | 2016-08-20 15:05 | PN ---
S CIWA - CIWA Score Nausea/Vomitin-Mild Nausea/No Vomiting Muscle Tremors: 4-Moderate,w/Arms Extend Anxiety: 4-Mod. Anxious/Guarded Agitation: 2 Paroxysmal Sweats: No Perspiration Orientation: 0-Oriented Tacttile Disturbances: 1-Very Mild Itch/Numbness Auditory Disturbances: 0-None Visual Disturbances: 0-None Headache: 2-Mild CIWA-Ar Total Score: 14 BHS Progress Note (SOAP) Subjective: Sweating, nausea, anxiety, restless, interrupted sleep Objective: 08/20/16 15:00 Last Vital Signs Temp Pulse Resp BP Pulse Ox 96.3 F L 95 H 20 118/67 08/20/16 12:33 08/20/16 12:33 08/20/16 12:33 08/20/16 12:33 Laboratory Tests 08/18/16 08/18/16 08/18/16 10:49 11:50 16:22 WBC RBC Hgb Hct MCV MCHC RDW Plt Count MPV Sodium Potassium Chloride Carbon Dioxide Anion Gap BUN Creatinine Creat Clearance w eGFR POC Glucometer 87 116 Random Glucose Calcium Total Bilirubin AST ALT Alkaline Phosphatase Total Protein Albumin Urine Color Urine Appearance Urine pH Ur Specific [place] Urine Protein Urine Glucose (UA) Urine Ketones Urine Blood Urine Nitrite Urine Bilirubin Urine Urobilinogen Ur Leukocyte Esterase RPR Titer HIV 1&2 Antibody Screen Negative HIV P24 Antigen Negative 08/18/16 08/19/16 08/19/16 18:00 05:55 06:10 WBC 5.5 RBC 4.49 Hgb 12.8 Hct 38.4 MCV 85.5 MCHC 33.4 RDW 16.0 H Plt Count 336 D MPV 7.4 L Sodium Potassium Chloride Carbon Dioxide Anion Gap BUN Creatinine Creat Clearance w eGFR POC Glucometer 91 Random Glucose Calcium Total Bilirubin AST ALT Alkaline Phosphatase Total Protein Albumin Urine Color Ltyellow Urine Appearance Clear Urine pH 8.0 Ur Specific [place] 1.012 Urine Protein Negative Urine Glucose (UA) Negative Urine Ketones Negative Urine Blood Negative Urine Nitrite Negative Urine Bilirubin Negative Urine Urobilinogen Negative Ur Leukocyte Esterase Negative RPR Titer HIV 1&2 Antibody Screen HIV P24 Antigen 08/19/16 08/19/16 08/19/16 06:10 06:10 16:19 WBC RBC Hgb Hct MCV MCHC RDW Plt Count MPV Sodium 131 L Potassium 4.3 Chloride 91 L Carbon Dioxide 29 Anion Gap 11 BUN 9 D Creatinine 0.7 Creat Clearance w eGFR > 60 POC Glucometer 107 Random Glucose 67 L Calcium 8.8 Total Bilirubin 0.6 AST 20 D ALT 21 Alkaline Phosphatase 92 D Total Protein 7.6 Albumin 4.1 D Urine Color Urine Appearance Urine pH Ur Specific [place] Urine Protein Urine Glucose (UA) Urine Ketones Urine Blood Urine Nitrite Urine Bilirubin Urine Urobilinogen Ur Leukocyte Esterase RPR Titer Nonreactive HIV 1&2 Antibody Screen HIV P24 Antigen 08/20/16 05:35 WBC RBC Hgb Hct MCV MCHC RDW Plt Count MPV Sodium Potassium Chloride Carbon Dioxide Anion Gap BUN Creatinine Creat Clearance w eGFR POC Glucometer 105 Random Glucose Calcium Total Bilirubin AST ALT Alkaline Phosphatase Total Protein Albumin Urine Color Urine Appearance Urine pH Ur Specific [place] Urine Protein Urine Glucose (UA) Urine Ketones Urine Blood Urine Nitrite Urine Bilirubin Urine Urobilinogen Ur Leukocyte Esterase RPR Titer HIV 1&2 Antibody Screen HIV P24 Antigen Labs noted: Na 131, CL 91 Assessment: 08/20/16 15:05 Withdrawal symptoms Noted with hyonatremia and hypochloremia Plan: Continue detox Hyonatremia:repeat sodium Hypochloremia: repeat chloride level
[2016-08-20] MEDS: chlordiazePOXIDE 5 MG CAPSULE PO SCH ×2 (17:23→22:25)
[2016-08-20] MEDS: guaiFENesin/D-METHORPHAN HB 10 ML UNIT-DOSE CUPS PO PRN (17:25)
[2016-08-20] MEDS: THIAMINE HCL 100 MG TABLET (FP) PO SCH (22:25)
[2016-08-21] MEDS: chlordiazePOXIDE 5 MG CAPSULE PO SCH ×2 (05:44→10:22)
[2016-08-21] MEDS: GABAPENTIN 100 MG CAPSULE (FP) PO SCH ×3 (05:44→23:21)
[2016-08-21] MEDS: ALBUTEROL SO4 6.7 GM HFA INHALER IH PRN (06:01)
[2016-08-21] MEDS: FLUTICASONE PROP 0.05% 16 GM NASAL SPRAY NS SCH (10:22)
[2016-08-21] MEDS: TAMSULOSIN HCL 0.4 MG CAP.ER.24H (FP) PO SCH (10:22)
[2016-08-21] MEDS: NAPROXEN 500 MG TABLET (FP) PO SCH ×2 (10:22→23:20)
[2016-08-21] MEDS: AMMONIUM LACTATE 12% LOTION 225 GM BOTTLE TP SCH ×2 (10:22→23:27)
[2016-08-21] MEDS: amLODIPine BESYLATE 5 MG TABLET (FP) PO SCH (10:23)
[2016-08-21] MEDS: PRENATAL VITAMINS W/ FOLIC ACID TABLET (FP) PO SCH (10:23)
[2016-08-21] MEDS: RANITIDINE HCL 150 MG TABLET (FP) PO SCH ×2 (10:23→23:21)
[2016-08-21 10:28] LABS: CALCIUM 9.3 mg/dL (8.5-10.1)
[2016-08-21 10:29] LABS: CREATININE 0.7 mg/dL (0.7-1.3)
--- NOTE | 2016-08-21 11:53 | PN ---
BHS Progress Note (SOAP) Subjective: SWEATING,INTERRUPTED SLEEP,RESTLESS Objective: 08/21/16 11:52 Vital Signs - 8 hr 08/21/16 06:15 Temperature 97.1 F L Pulse Rate 94 H Respiratory 18 Rate Blood Pressure 144/85 Laboratory Tests 08/18/16 08/18/16 08/18/16 10:49 11:50 16:22 WBC RBC Hgb Hct MCV MCHC RDW Plt Count MPV Sodium Potassium Chloride Carbon Dioxide Anion Gap BUN Creatinine Creat Clearance w eGFR POC Glucometer 87 116 Random Glucose Calcium Total Bilirubin AST ALT Alkaline Phosphatase Total Protein Albumin Urine Color Urine Appearance Urine pH Ur Specific [place] Urine Protein Urine Glucose (UA) Urine Ketones Urine Blood Urine Nitrite Urine Bilirubin Urine Urobilinogen Ur Leukocyte Esterase RPR Titer HIV 1&2 Antibody Screen Negative HIV P24 Antigen Negative 08/18/16 08/19/16 08/19/16 18:00 05:55 06:10 WBC 5.5 RBC 4.49 Hgb 12.8 Hct 38.4 MCV 85.5 MCHC 33.4 RDW 16.0 H Plt Count 336 D MPV 7.4 L Sodium Potassium Chloride Carbon Dioxide Anion Gap BUN Creatinine Creat Clearance w eGFR POC Glucometer 91 Random Glucose Calcium Total Bilirubin AST ALT Alkaline Phosphatase Total Protein Albumin Urine Color Ltyellow Urine Appearance Clear Urine pH 8.0 Ur Specific [place] 1.012 Urine Protein Negative Urine Glucose (UA) Negative Urine Ketones Negative Urine Blood Negative Urine Nitrite Negative Urine Bilirubin Negative Urine Urobilinogen Negative Ur Leukocyte Esterase Negative RPR Titer HIV 1&2 Antibody Screen HIV P24 Antigen 08/19/16 08/19/16 08/19/16 06:10 06:10 16:19 WBC RBC Hgb Hct MCV MCHC RDW Plt Count MPV Sodium 131 L Potassium 4.3 Chloride 91 L Carbon Dioxide 29 Anion Gap 11 BUN 9 D Creatinine 0.7 Creat Clearance w eGFR > 60 POC Glucometer 107 Random Glucose 67 L Calcium 8.8 Total Bilirubin 0.6 AST 20 D ALT 21 Alkaline Phosphatase 92 D Total Protein 7.6 Albumin 4.1 D Urine Color Urine Appearance Urine pH Ur Specific [place] Urine Protein Urine Glucose (UA) Urine Ketones Urine Blood Urine Nitrite Urine Bilirubin Urine Urobilinogen Ur Leukocyte Esterase RPR Titer Nonreactive HIV 1&2 Antibody Screen HIV P24 Antigen 08/20/16 08/20/16 08/21/16 05:35 16:28 05:49 WBC RBC Hgb Hct MCV MCHC RDW Plt Count MPV Sodium Potassium Chloride Carbon Dioxide Anion Gap BUN Creatinine Creat Clearance w eGFR POC Glucometer 105 98 97 Random Glucose Calcium Total Bilirubin AST ALT Alkaline Phosphatase Total Protein Albumin Urine Color Urine Appearance Urine pH Ur Specific [place] Urine Protein Urine Glucose (UA) Urine Ketones Urine Blood Urine Nitrite Urine Bilirubin Urine Urobilinogen Ur Leukocyte Esterase RPR Titer HIV 1&2 Antibody Screen HIV P24 Antigen 08/21/16 06:30 WBC RBC Hgb Hct MCV MCHC RDW Plt Count MPV Sodium 133 L Potassium 4.4 Chloride 97 L Carbon Dioxide 26 Anion Gap 10 BUN 11 D Creatinine 0.7 Creat Clearance w eGFR POC Glucometer Random Glucose 96 D Calcium 9.3 Total Bilirubin AST ALT Alkaline Phosphatase Total Protein Albumin Urine Color Urine Appearance Urine pH Ur Specific [place] Urine Protein Urine Glucose (UA) Urine Ketones Urine Blood Urine Nitrite Urine Bilirubin Urine Urobilinogen Ur Leukocyte Esterase RPR Titer HIV 1&2 Antibody Screen HIV P24 Antigen LABS NOTED Assessment: 08/21/16 11:53 WITHDRAWAL SX. Plan: CONTINUE DETOX
[2016-08-21] MEDS: chlordiazePOXIDE HCL 10 MG CAPSULE PO SCH ×2 (17:18→23:20)
[2016-08-21] MEDS: ALBUTEROL SO4 2.5/IPRATROPIUM 0.5 INH SOL 3 ML VIAL.NEB. NEB PRN (19:59)
[2016-08-21 22:29] VITALS: BP 145/75; PULSE 95; TEMP 98.1
[2016-08-21] MEDS: THIAMINE HCL 100 MG TABLET (FP) PO SCH (23:20)
[2016-08-22] MEDS: guaiFENesin/D-METHORPHAN HB 10 ML UNIT-DOSE CUPS PO PRN (04:55)
[2016-08-22] MEDS: chlordiazePOXIDE HCL 10 MG CAPSULE PO SCH (04:55)
[2016-08-22] MEDS: ALBUTEROL SO4 6.7 GM HFA INHALER IH PRN (04:56)
[2016-08-22] MEDS: GABAPENTIN 100 MG CAPSULE (FP) PO SCH (06:17)
[2016-08-22] MEDS: AMMONIUM LACTATE 12% LOTION 225 GM BOTTLE TP SCH (09:19)
[2016-08-22] MEDS: TAMSULOSIN HCL 0.4 MG CAP.ER.24H (FP) PO SCH (09:20)
[2016-08-22] MEDS: NAPROXEN 500 MG TABLET (FP) PO SCH (09:20)
[2016-08-22] MEDS: PRENATAL VITAMINS W/ FOLIC ACID TABLET (FP) PO SCH (09:20)
[2016-08-22] MEDS: FLUTICASONE PROP 0.05% 16 GM NASAL SPRAY NS SCH (09:20)
[2016-08-22] MEDS: RANITIDINE HCL 150 MG TABLET (FP) PO SCH (09:21)
[2016-08-22] MEDS: amLODIPine BESYLATE 5 MG TABLET (FP) PO SCH (09:21)
--- NOTE | 2016-08-22 11:29 | PN ---
BHS Progress Note (SOAP) Subjective: DETOX COMPLETED Objective: 08/22/16 11:29 Vital Signs Temperature 98.1 F 08/21/16 22:29 Pulse Rate 95 H 08/21/16 22:29 Respiratory Rate 18 08/22/16 03:30 Blood Pressure 145/75 08/21/16 22:29 O2 Sat by Pulse Oximetry (%) Assessment: 08/22/16 11:29 MEDICALLY STABLE Plan: D/C PT TODAY.
--- NOTE | 2016-08-22 11:35 | DS ---
[facility] Detox Discharge Summary Admission Date: 08/18/16 Discharge Date: 08/22/16 - History Present History: Alcohol Dependence Additional Comments: DETOX COMPLETED Pertinent Past History: DM HTN ARTHRITIS BPH GERD - Physical Exam Results Vital Signs: Vital Signs Temperature 98.1 F 08/21/16 22:29 Pulse Rate 95 H 08/21/16 22:29 Respiratory Rate 18 08/22/16 03:30 Blood Pressure 145/75 08/21/16 22:29 O2 Sat by Pulse Oximetry (%) - Treatment Hospital Course: Detox Protocol Followed, Detoxed Safely, Responded well, Discharged Condition Good - Medication Discharge Medications: Ambulatory Orders Gabapentin [Neurontin -] 100 mg PO TID 11/05/15 Naproxen [Naprosyn -] 500 mg PO BID 11/05/15 Fluphenazine HCl [Prolixin -] 20 mg PO BID 07/21/16 Amlodipine Besylate [Norvasc -] 5 mg PO DAILY #30 tablet 07/25/16 Fluticasone Prop 0.05% Nasal [Flonase -] 1 spray NS DAILY #1 bot 07/25/16 Ranitidine [Zantac -] 150 mg PO BID #60 tablet 07/25/16 Tamsulosin HCl [Flomax -] 0.4 mg PO DAILY@0830 #30 cap.er.24h 07/25/16 Benztropine Mesylate [Cogentin -] 2 mg PO BID 08/18/16 - Diagnosis (1) Alcohol dependence with uncomplicated withdrawal Status: Acute (2) Insomnia Status: Chronic (3) Nicotine dependence Status: Chronic Qualifiers: Nicotine product type: cigarettes Substance use status: uncomplicated Qualified Code(s): F17.210 - Nicotine dependence, cigarettes, uncomplicated (4) Arthritis Status: Chronic (5) Asthma Status: Chronic Qualifiers: Asthma severity: mild persistent Asthma complication type: with status asthmaticus Qualified Code(s): J45.32 - Mild persistent asthma with status asthmaticus (6) BPH (benign prostatic hyperplasia) Status: Chronic Qualifiers: Prostatic enlargement morphology: non-nodular Lower urinary tract symptom presence: symptoms present Qualified Code(s): N40.1 - Enlarged prostate with lower urinary tract symptoms (7) Diabetes mellitus Status: Chronic Qualifiers: Diabetes mellitus type: type 1 Diabetes mellitus complication status: without complication Qualified Code(s): E10.9 - Type 1 diabetes mellitus without complications (8) Essential hypertension Status: Chronic (9) GERD (gastroesophageal reflux disease) Status: Chronic Qualifiers: Esophagitis presence: without esophagitis Qualified Code(s): K21.9 - Gastro-esophageal reflux disease without esophagitis (10) Neuropathy Status: Chronic (11) Paranoid schizophrenia Status: Chronic - AMA Did Patient Leave Against Medical Advice: No
== END 2016-08-22 11:02 | disposition home or self-care (01) | DRG 775 ==
LOC: YASAS 08:26 → Y3N 12:55
PROVIDERS: ADMIT Internal Medicine; ATTEND Internal Medicine
PROC: HZ2ZZZZ Detoxification Services for Substance Abuse Treatment (ICD-10-PCS; principal; 2016-08-22)
DX: F10.230 Alcohol dependence with withdrawal, uncomplicated (principal); F17.210 Nicotine dependence, cigarettes, uncomplicated; F20.0 Paranoid schizophrenia; I10 Essential (primary) hypertension; E10.9 Type 1 diabetes mellitus without complications; K21.9 Gastro-esophageal reflux disease without esophagitis; G62.9 Polyneuropathy, unspecified; G47.00 Insomnia, unspecified
CPT/HCPCS: 36415; 80048; 80053; 81003; 85027; 86593; 87389; 90732; 93005; 93010; 94640; G0009

== ENCOUNTER 2016-09-23 13:24 | Inpatient (IN) | payer OTHER ==
[2016-09-23 14:04] VITALS: BMI 28.3
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
[2016-09-23] MEDS ORDERED: chlordiazePOXIDE HCL 25 MG CAPSULE PO ONE (18:06)
[2016-09-23] MEDS ORDERED: chlordiazePOXIDE HCL 25 MG CAPSULE PO PRN (18:06)
[2016-09-23] MEDS: chlordiazePOXIDE HCL 25 MG CAPSULE PO SCH ×2 (18:21→22:56)
[2016-09-23] MEDS ORDERED: LOPERAMIDE HCL 2 MG CAPSULE PO PRN (19:22)
[2016-09-23] MEDS ORDERED: guaiFENesin/D-METHORPHAN HB 10 ML UNIT-DOSE CUPS PO PRN (19:22)
[2016-09-23] MEDS ORDERED: IBUPROFEN 400 MG TABLET (FP) PO PRN (19:22)
[2016-09-23] MEDS ORDERED: MAGNESIUM CITRATE 300 ML BOTTLE PO PRN (19:22)
[2016-09-23] MEDS ORDERED: hydrOXYzine PAMOATE 25 MG CAPSULE (FP) PO PRN (19:22)
[2016-09-23] MEDS ORDERED: P-EPHED 60MG/TRIPROLIDI 2.5MG TABLET PO PRN (19:22)
[2016-09-23] MEDS ORDERED: MENTHOL/PHENOL 1 EACH UD MM PRN (19:22)
[2016-09-23] MEDS ORDERED: MAGNESIUM HYDROX 2400MG/30ML ORAL SUSPENSION 30 ML CUP PO PRN (19:22)
[2016-09-23] MEDS ORDERED: diphenhydrAMINE HCL 50 MG CAPSULE PO PRN (19:22)
[2016-09-23] MEDS ORDERED: MAG HYDROX/AL HYDROX/SIMETH 30 ML UNIT-DOSE CUP PO PRN (19:22)
[2016-09-23] MEDS: NAPROXEN 500 MG TABLET (FP) PO SCH (22:56)
[2016-09-23] MEDS: FLUTICASONE PROP 0.05% 16 GM NASAL SPRAY NS SCH (22:56)
[2016-09-23] MEDS: THIAMINE HCL 100 MG TABLET (FP) PO SCH (22:57)
[2016-09-23] MEDS: GABAPENTIN 100 MG CAPSULE (FP) PO SCH (22:57)
[2016-09-23] MEDS: RANITIDINE HCL 150 MG TABLET (FP) PO SCH (22:57)
[2016-09-24] MEDS: chlordiazePOXIDE HCL 25 MG CAPSULE PO SCH ×4 (05:57→22:09)
[2016-09-24] MEDS: GABAPENTIN 100 MG CAPSULE (FP) PO SCH ×3 (05:57→22:09)
[2016-09-24] MEDS: TAMSULOSIN HCL 0.4 MG CAP.ER.24H (FP) PO SCH (07:35)
[2016-09-24] MEDS: RANITIDINE HCL 150 MG TABLET (FP) PO SCH ×2 (10:20→22:09)
[2016-09-24] MEDS: amLODIPine BESYLATE 5 MG TABLET (FP) PO SCH (10:20)
[2016-09-24] MEDS: NAPROXEN 500 MG TABLET (FP) PO SCH ×2 (10:21→22:09)
[2016-09-24] MEDS: FLUTICASONE PROP 0.05% 16 GM NASAL SPRAY NS SCH ×2 (10:21→22:09)
[2016-09-24] MEDS: PRENATAL VITAMINS W/ FOLIC ACID TABLET (FP) PO SCH (10:21)
[2016-09-24 10:22] LABS: MCH 28.4 pg (25.7-33.7); MCHC 33.3 g/dl (32.0-35.9); MEAN CELL VOLUME 85.5 fl (80-96); MEAN PLT VOLUME 7.4 fl (7.5-11.1); PLATELET COUNT 267 K/MM3 (134-434); RDW 16.4 % (11.9-15.9)
[2016-09-24 10:23] LABS: ALBUMIN 3.5 g/dl (3.4-5.0); ANION GAP 9 (8-16); BILIRUBIN,TOTAL 0.7 mg/dL (0.2-1.0); CALCIUM 8.8 mg/dL (8.5-10.1); CO2 29 mmol/L (21-32); CREATININE 0.8 mg/dL (0.7-1.3); GLUCOSE,RANDOM 117 mg/dL (74-106); SGOT/AST 22 U/L (15-37); SGPT/ALT 30 U/L (12-78); TOT PROT 6.6 g/dl (6.4-8.2)
[2016-09-24 10:24] LABS: ALK PHOS 86 U/L (45-117)
[2016-09-24 11:24] LABS: HIV 1 & 2 AB NEGATIVE; HIV 1 AGp24 NEGATIVE
[2016-09-24] MEDS: ACETAMINOPHEN 325 MG TABLET (FP) PO PRN ×2 (13:50→17:50)
--- NOTE | 2016-09-24 14:37 | PN ---
S CIWA - CIWA Score Nausea/Vomitin Muscle Tremors: 4-Moderate,w/Arms Extend Anxiety: 4-Mod. Anxious/Guarded Agitation: 4-Moderately Restless Paroxysmal Sweats: No Perspiration Orientation: 0-Oriented Tacttile Disturbances: 1-Very Mild Itch/Numbness Auditory Disturbances: 0-None Visual Disturbances: 0-None Headache: 2-Mild CIWA-Ar Total Score: 18 BHS Progress Note (SOAP) Subjective: Anxious, restless, nausea, interrupted sleep, sweating Objective: 09/24/16 14:35 Last Vital Signs Temp Pulse Resp BP Pulse Ox 96 F L 67 20 126/75 09/24/16 13:52 09/24/16 13:52 09/24/16 13:52 09/24/16 13:52 Laboratory Tests 09/23/16 09/24/16 09/24/16 15:34 05:56 08:00 WBC RBC Hgb Hct MCV MCHC RDW Plt Count MPV Sodium Potassium Chloride Carbon Dioxide Anion Gap BUN Creatinine Creat Clearance w eGFR POC Glucometer 94 90 Random Glucose Calcium Total Bilirubin AST ALT Alkaline Phosphatase Total Protein Albumin RPR Titer HIV 1&2 Antibody Screen Negative HIV P24 Antigen Negative 09/24/16 09/24/16 09/24/16 08:00 08:00 08:00 WBC 5.0 RBC 4.50 Hgb 12.8 Hct 38.5 MCV 85.5 MCHC 33.3 RDW 16.4 H Plt Count 267 D MPV 7.4 L Sodium 136 Potassium 4.1 Chloride 98 Carbon Dioxide 29 Anion Gap 9 BUN 9 Creatinine 0.8 Creat Clearance w eGFR > 60 POC Glucometer Random Glucose 117 H D Calcium 8.8 Total Bilirubin 0.7 AST 22 ALT 30 D Alkaline Phosphatase 86 Total Protein 6.6 Albumin 3.5 RPR Titer Nonreactive HIV 1&2 Antibody Screen HIV P24 Antigen Labs noted Assessment: 09/24/16 14:36 Withdrawal symptoms Plan: Continue detox
[2016-09-24] MEDS: THIAMINE HCL 100 MG TABLET (FP) PO SCH (22:09)
--- NOTE | 2016-09-24 22:24 | EKG ---
Test Reason : Blood Pressure : / mmHG Vent. Rate : 075 BPM Atrial Rate : 075 BPM P-R Int : 156 ms QRS Dur : 086 ms QT Int : 424 ms P-R-T Axes : 023 -25 035 degrees QTc Int : 473 ms NORMAL SINUS RHYTHM SEPTAL INFARCT (CITED ON OR BEFORE 23-SEP-2016) LEFTWARD AXIS PROLONGED QT ABNORMAL ECG WHEN COMPARED WITH ECG OF 18-AUG-2016 13:29, QT HAS LENGTHENED Confirmed by RABIA HERNANDEZ, MARIE (2016) on 09/24/2016 10:23:39 PM Referred By: Confirmed By:MARIE CAMARILLO MD
[2016-09-25] MEDS: GABAPENTIN 100 MG CAPSULE (FP) PO SCH ×3 (06:01→22:17)
[2016-09-25] MEDS: chlordiazePOXIDE HCL 25 MG CAPSULE PO SCH ×2 (06:01→10:15)
[2016-09-25] MEDS: TAMSULOSIN HCL 0.4 MG CAP.ER.24H (FP) PO SCH (09:01)
[2016-09-25] MEDS: NICOTINE POLACRILEX 2 MG GUM BUC PRN (09:27)
--- NOTE | 2016-09-25 09:29 | PN ---
S CIWA - CIWA Score Nausea/Vomitin-No Nausea/No Vomiting Muscle Tremors: 3 Anxiety: 3 Agitation: 4-Moderately Restless Paroxysmal Sweats: 3 Orientation: 0-Oriented Tacttile Disturbances: 0-None Auditory Disturbances: 0-None Visual Disturbances: 0-None Headache: 0-None Present CIWA-Ar Total Score: 13 BHS Progress Note (SOAP) Subjective: Anxiety,tremors,sweating,interrupted sleep,restless Objective: 09/25/16 09:28 Vital Signs - 8 hr 09/25/16 09/25/16 09/25/16 03:30 06:42 09:26 Temperature 95.1 F L 98.1 F Pulse Rate 77 83 Respiratory 18 18 18 Rate Blood Pressure 143/94 126/74 Laboratory Tests 09/23/16 09/24/16 09/24/16 15:34 05:56 08:00 WBC RBC Hgb Hct MCV MCHC RDW Plt Count MPV Sodium Potassium Chloride Carbon Dioxide Anion Gap BUN Creatinine Creat Clearance w eGFR POC Glucometer 94 90 Random Glucose Calcium Total Bilirubin AST ALT Alkaline Phosphatase Total Protein Albumin RPR Titer HIV 1&2 Antibody Screen Negative HIV P24 Antigen Negative 09/24/16 09/24/16 09/24/16 08:00 08:00 08:00 WBC 5.0 RBC 4.50 Hgb 12.8 Hct 38.5 MCV 85.5 MCHC 33.3 RDW 16.4 H Plt Count 267 D MPV 7.4 L Sodium 136 Potassium 4.1 Chloride 98 Carbon Dioxide 29 Anion Gap 9 BUN 9 Creatinine 0.8 Creat Clearance w eGFR > 60 POC Glucometer Random Glucose 117 H D Calcium 8.8 Total Bilirubin 0.7 AST 22 ALT 30 D Alkaline Phosphatase 86 Total Protein 6.6 Albumin 3.5 RPR Titer Nonreactive HIV 1&2 Antibody Screen HIV P24 Antigen 09/24/16 09/25/16 16:29 06:01 WBC RBC Hgb Hct MCV MCHC RDW Plt Count MPV Sodium Potassium Chloride Carbon Dioxide Anion Gap BUN Creatinine Creat Clearance w eGFR POC Glucometer 143 114 Random Glucose Calcium Total Bilirubin AST ALT Alkaline Phosphatase Total Protein Albumin RPR Titer HIV 1&2 Antibody Screen HIV P24 Antigen labs noted Assessment: 09/25/16 09:28 Withdrawal sx. Plan: Continue detox
[2016-09-25] MEDS: NAPROXEN 500 MG TABLET (FP) PO SCH ×2 (10:15→22:17)
[2016-09-25] MEDS: PRENATAL VITAMINS W/ FOLIC ACID TABLET (FP) PO SCH (10:15)
[2016-09-25] MEDS: FLUTICASONE PROP 0.05% 16 GM NASAL SPRAY NS SCH ×2 (10:15→22:18)
[2016-09-25] MEDS: amLODIPine BESYLATE 5 MG TABLET (FP) PO SCH (10:15)
[2016-09-25] MEDS: RANITIDINE HCL 150 MG TABLET (FP) PO SCH ×2 (10:15→22:17)
[2016-09-25 11:18] LABS: URINE APPEARANCE CLEAR; URINE BILIRUBIN NEGATIVE (NEGATIVE); URINE BLOOD NEGATIVE (NEGATIVE); URINE COLOR STRAW; URINE GLUCOSE (UA) NEGATIVE (NEGATIVE); URINE KETONE NEGATIVE (NEGATIVE); URINE NITRITE NEGATIVE (NEGATIVE); URINE PROTEIN NEGATIVE (NEGATIVE); URINE UROBILINOGEN NEGATIVE E.U./dl (0.2-1.0)
[2016-09-25 11:31] LABS: URINE LEUK ESTERASE 1+ (NEGATIVE)
[2016-09-25 11:34] LABS: URINE RBC <1 /hpf (0-3); URINE WBC 3 /hpf (3-5)
--- NOTE | 2016-09-25 16:16 | CONSULT ---
[facility] Psychiatric Consult - Data Date of interview: 09/25/16 Admission source: [facility] Identifying data: Another admission to [facility] for this 55 y/o AA male seeking detox treatment on for alcohol dependence.Patient is single without children,homeless,unemployed and supported on SSI benefits. Substance Abuse History: - Smoking Cessation. Smoking history: Current every day smoker. Have you smoked in the past 12 months: Yes. Aproximately how many cigarettes per day: 10. Cigars Per Day: 0. Hx Chewing Tobacco Use: No. Initiated information on smoking cessation: Yes. 'Breaking Loose' booklet given : 09/23/16. - Substance & Tx. History. Hx Alcohol Use: Yes. Hx Substance Use : No. Substance Use Type: Alcohol. Hx Substance Use Treatment: Yes (aci in ). - Substances Abused. Alcohol. Route: Oral. Frequency: Daily. Amount used: 1pint of vodka/6 of 25 ozs of beer. Age of first use: 12. Date of Last Use: 09/23/16. Confirmed by the patient in this interview. Medical History: Hypertension,bronchial asthma,GERD,BPH (benign prostatic hyperplasia),arthritis (walks with cane),diabetes mellitus,peripheral neuropathy and past treatment for syphilis. Psychiatric History: Diagnosed with paranoid schizophrenia.Patient is a poor historian.He is also difficult to follow due to poor communications skills.Had his first psychiatric hospitalization at age 20 but he saw a psychiatrist for the first time at age 12.Mr East presents with a family history of mental illness (biological father and two siblings are diagnosed with schizophrenia) .History of multiple psychiatric hospitalizations ([place],[facility], [place],[facility] and [facility]).He gets his outpatient psychiatric services at [facility].Patient states that he is prescribed prolixin and cogentin (no recall of doses/date of last intake) .He admits to non-adherence to his psychotropic medications.He denies history of suicide attempts. Physical/Sexual Abuse/Trauma History: Patient denies. Additional Comment: Urine Drug Screen Results: BZO-Benzodiazepines.Noted. Mental Status Exam - Mental Status Exam Alert and Oriented to: Time, Place, Person Cognitive Function: Grossly Intact Patient Appearance: Disheveled, Bizarre Mood: Nervous, Apprehensive Affect: Mood Congruent Patient Behavior: Sedated (mildly sedated), Fatigued Speech Pattern: Unclear (at times.), Delayed, Slurred Voice Loudness: Normal Thought Process: Disorganized Thought Disorder: Bizarre Hallucinations: Denies Suicidal Ideation: Denies Homicidal Ideation: Denies Insight/Judgement: Poor Sleep: Fair Appetite: Good Gait/Station: Other (walks with a cane) Psychiatric Findings - Problem List ([place] 1, 2,3) (1) Alcohol dependence with uncomplicated withdrawal Current Visit: Yes Status: Acute (2) Nicotine dependence Current Visit: Yes Status: Acute Qualifiers: Nicotine product type: cigarettes Substance use status: uncomplicated Qualified Code(s): F17.210 - Nicotine dependence, cigarettes, uncomplicated (3) Paranoid schizophrenia Current Visit: Yes Status: Chronic (4) Arthritis Current Visit: Yes Status: Chronic (5) Asthma Current Visit: Yes Status: Chronic Qualifiers: Asthma severity: mild persistent Asthma complication type: with status asthmaticus Qualified Code(s): J45.32 - Mild persistent asthma with status asthmaticus Comment: VENTOLIN+NEBULIZER+PREDNISON+AZITHROMYCIN (6) BPH (benign prostatic hyperplasia) Current Visit: Yes Status: Chronic Qualifiers: Prostatic enlargement morphology: non-nodular Lower urinary tract symptom presence: symptoms present Qualified Code(s): N40.1 - Enlarged prostate with lower urinary tract symptoms Comment: TAMSULOSIN 0.4 MG EXTEND (7) Diabetes mellitus Current Visit: Yes Status: Chronic Qualifiers: Diabetes mellitus type: type 1 Diabetes mellitus complication status: without complication Qualified Code(s): E10.9 - Type 1 diabetes mellitus without complications (8) Essential hypertension Current Visit: Yes Status: Chronic Comment: AMLODIPINE CLONIDIN PRN (9) GERD (gastroesophageal reflux disease) Current Visit: Yes Status: Chronic Qualifiers: Esophagitis presence: without esophagitis Qualified Code(s): K21.9 - Gastro-esophageal reflux disease without esophagitis Comment: ZANTAC (10) Neuropathy Current Visit: Yes Status: Chronic Comment: NEURONTIN 100 MG TID (11) Use of cane as ambulatory aid Current Visit: Yes Status: Chronic (12) Frequent falls Current Visit: Yes Status: Chronic Comment: By history. (13) Insomnia Current Visit: No Status: Chronic - Initial Treatment Plan Initial Treatment Plan: Psychoeducation.Detoxification.Medications : prolixin 5 mg po hs + cogentin 1 mg po hs.Patient agrees to follow this regimen.Side effects/benefits discussed with the patient.Made aware of risk of abnormal involuntary movements,urinary retention,constipation,blurred vision,EPS ( akathisia,dyskinesia,dystonias) and neuroleptic malignant syndrome.Information is delivered in lay language.Patient agrees with this plan of care.Pharmacy claims are reviewed.Observation.
[2016-09-25] MEDS: chlordiazePOXIDE 5 MG CAPSULE PO SCH ×2 (17:11→22:18)
[2016-09-25] MEDS: ACETAMINOPHEN 325 MG TABLET (FP) PO PRN (17:18)
[2016-09-25] MEDS: BENZTROPINE MESYLATE 1 MG TABLET (FP) PO SCH (22:17)
[2016-09-25] MEDS: THIAMINE HCL 100 MG TABLET (FP) PO SCH (22:18)
[2016-09-26] MEDS: chlordiazePOXIDE 5 MG CAPSULE PO SCH ×2 (05:40→10:32)
[2016-09-26] MEDS: GABAPENTIN 100 MG CAPSULE (FP) PO SCH ×3 (05:56→22:16)
--- NOTE | 2016-09-26 10:26 | PN ---
BHS Progress Note (SOAP) Subjective: Sweating,interrupted sleep,restless Objective: 09/26/16 10:21 Vital Signs - 8 hr 09/26/16 09/26/16 09/26/16 03:26 05:54 09:45 Temperature 96.6 F L 96.6 F L Pulse Rate 80 88 Respiratory 18 18 18 Rate Blood Pressure 141/94 129/75 Laboratory Last Values WBC 5.0 K/mm3 (4.0-10.0) 09/24/16 08:00 RBC 4.50 M/mm3 (4.00-5.60) 09/24/16 08:00 Hgb 12.8 GM/dL (11.7-16.9) 09/24/16 08:00 Hct 38.5 % (35.4-49) 09/24/16 08:00 MCV 85.5 fl (80-96) 09/24/16 08:00 MCHC 33.3 g/dl (32.0-35.9) 09/24/16 08:00 RDW 16.4 % (11.9-15.9) H 09/24/16 08:00 Plt Count 267 K/MM3 (134-434) D 09/24/16 08:00 MPV 7.4 fl (7.5-11.1) L 09/24/16 08:00 Sodium 136 mmol/L (136-145) 09/24/16 08:00 Potassium 4.1 mmol/L (3.5-5.1) 09/24/16 08:00 Chloride 98 mmol/L (98-107) 09/24/16 08:00 Carbon Dioxide 29 mmol/L (21-32) 09/24/16 08:00 Anion Gap 9 (8-16) 09/24/16 08:00 BUN 9 mg/dL (7-18) 09/24/16 08:00 Creatinine 0.8 mg/dL (0.7-1.3) 09/24/16 08:00 Creat Clearance w eGFR > 60 (>60) 09/24/16 08:00 POC Glucometer 101 UNITS (()) 09/26/16 05:40 Random Glucose 117 mg/dL (74-106) H D 09/24/16 08:00 Calcium 8.8 mg/dL (8.5-10.1) 09/24/16 08:00 Total Bilirubin 0.7 mg/dL (0.2-1.0) 09/24/16 08:00 AST 22 U/L (15-37) 09/24/16 08:00 ALT 30 U/L (12-78) D 09/24/16 08:00 Alkaline Phosphatase 86 U/L (45-117) 09/24/16 08:00 Total Protein 6.6 g/dl (6.4-8.2) 09/24/16 08:00 Albumin 3.5 g/dl (3.4-5.0) 09/24/16 08:00 Urine Color Straw 09/25/16 08:00 Urine Appearance Clear 09/25/16 08:00 Urine pH 7.0 (5.0-8.0) 09/25/16 08:00 Ur Specific [place] 1.005 (1.001-1.035) 09/25/16 08:00 Urine Protein Negative (NEGATIVE) 09/25/16 08:00 Urine Glucose (UA) Negative (NEGATIVE) 09/25/16 08:00 Urine Ketones Negative (NEGATIVE) 09/25/16 08:00 Urine Blood Negative (NEGATIVE) 09/25/16 08:00 Urine Nitrite Negative (NEGATIVE) 09/25/16 08:00 Urine Bilirubin Negative (NEGATIVE) 09/25/16 08:00 Urine Urobilinogen Negative E.U./dl (0.2-1.0) 09/25/16 08:00 Ur Leukocyte Esterase 1+ (NEGATIVE) H 09/25/16 08:00 Urine RBC <1 /hpf (0-3) 09/25/16 08:00 Urine WBC 3 /hpf (3-5) 09/25/16 08:00 Ur Epithelial Cells Rare /hpf (FEW) 09/25/16 08:00 RPR Titer Nonreactive (NONREACTIVE) 09/24/16 08:00 Hepatitis C Antibody >11.0 s/co ratio (0.0-0.9) H 09/24/16 08:00 HIV 1&2 Antibody Screen Negative 09/24/16 08:00 HIV P24 Antigen Negative 09/24/16 08:00 labs noted,labs noted known to be hep c positive. Assessment: 09/26/16 10:24 Withdrawal sx. Plan: continue detox
[2016-09-26] MEDS: TAMSULOSIN HCL 0.4 MG CAP.ER.24H (FP) PO SCH (10:32)
[2016-09-26] MEDS: amLODIPine BESYLATE 5 MG TABLET (FP) PO SCH (10:32)
[2016-09-26] MEDS: FLUTICASONE PROP 0.05% 16 GM NASAL SPRAY NS SCH ×2 (10:33→22:16)
[2016-09-26] MEDS: NAPROXEN 500 MG TABLET (FP) PO SCH ×2 (10:33→22:16)
[2016-09-26] MEDS: PRENATAL VITAMINS W/ FOLIC ACID TABLET (FP) PO SCH (10:33)
[2016-09-26] MEDS: RANITIDINE HCL 150 MG TABLET (FP) PO SCH ×2 (10:33→22:16)
[2016-09-26] MEDS: chlordiazePOXIDE HCL 10 MG CAPSULE PO SCH ×2 (17:17→22:15)
[2016-09-26] MEDS: ACETAMINOPHEN 325 MG TABLET (FP) PO PRN (17:19)
[2016-09-26] MEDS: NICOTINE POLACRILEX 2 MG GUM BUC PRN ×2 (18:20→22:19)
[2016-09-26] MEDS: THIAMINE HCL 100 MG TABLET (FP) PO SCH (22:15)
[2016-09-26] MEDS: BENZTROPINE MESYLATE 1 MG TABLET (FP) PO SCH (22:16)
[2016-09-27] MEDS: GABAPENTIN 100 MG CAPSULE (FP) PO SCH (05:21)
[2016-09-27] MEDS: ACETAMINOPHEN 325 MG TABLET (FP) PO PRN (05:21)
[2016-09-27] MEDS: chlordiazePOXIDE HCL 10 MG CAPSULE PO SCH ×2 (05:21→10:38)
[2016-09-27 06:10] VITALS: BP 106/69; PULSE 67; TEMP 97.6
[2016-09-27] MEDS: TAMSULOSIN HCL 0.4 MG CAP.ER.24H (FP) PO SCH (09:37)
[2016-09-27] MEDS: NAPROXEN 500 MG TABLET (FP) PO SCH (09:37)
[2016-09-27] MEDS: RANITIDINE HCL 150 MG TABLET (FP) PO SCH (09:37)
[2016-09-27] MEDS: amLODIPine BESYLATE 5 MG TABLET (FP) PO SCH (10:38)
[2016-09-27] MEDS: PRENATAL VITAMINS W/ FOLIC ACID TABLET (FP) PO SCH (10:38)
[2016-09-27] MEDS: FLUTICASONE PROP 0.05% 16 GM NASAL SPRAY NS SCH (10:38)
--- NOTE | 2016-09-27 16:24 | DS ---
[facility] Detox Discharge Summary Admission Date: 09/23/16 Discharge Date: 09/27/16 - History Present History: Alcohol Dependence Pertinent Past History: Asthma BPH GERD HTN - Physical Exam Results Vital Signs: Vital Signs Temperature 97.6 F 09/27/16 06:09 Pulse Rate 67 09/27/16 06:09 Respiratory Rate 16 09/27/16 06:09 Blood Pressure 106/69 09/27/16 06:09 O2 Sat by Pulse Oximetry (%) Pertinent Admission Physical Exam Findings: Withdrawal sx. Laboratory Last Values WBC 5.0 K/mm3 (4.0-10.0) 09/24/16 08:00 RBC 4.50 M/mm3 (4.00-5.60) 09/24/16 08:00 Hgb 12.8 GM/dL (11.7-16.9) 09/24/16 08:00 Hct 38.5 % (35.4-49) 09/24/16 08:00 MCV 85.5 fl (80-96) 09/24/16 08:00 MCHC 33.3 g/dl (32.0-35.9) 09/24/16 08:00 RDW 16.4 % (11.9-15.9) H 09/24/16 08:00 Plt Count 267 K/MM3 (134-434) D 09/24/16 08:00 MPV 7.4 fl (7.5-11.1) L 09/24/16 08:00 Sodium 136 mmol/L (136-145) 09/24/16 08:00 Potassium 4.1 mmol/L (3.5-5.1) 09/24/16 08:00 Chloride 98 mmol/L (98-107) 09/24/16 08:00 Carbon Dioxide 29 mmol/L (21-32) 09/24/16 08:00 Anion Gap 9 (8-16) 09/24/16 08:00 BUN 9 mg/dL (7-18) 09/24/16 08:00 Creatinine 0.8 mg/dL (0.7-1.3) 09/24/16 08:00 Creat Clearance w eGFR > 60 (>60) 09/24/16 08:00 POC Glucometer 145 UNITS (()) 09/26/16 16:17 Random Glucose 117 mg/dL (74-106) H D 09/24/16 08:00 Calcium 8.8 mg/dL (8.5-10.1) 09/24/16 08:00 Total Bilirubin 0.7 mg/dL (0.2-1.0) 09/24/16 08:00 AST 22 U/L (15-37) 09/24/16 08:00 ALT 30 U/L (12-78) D 09/24/16 08:00 Alkaline Phosphatase 86 U/L (45-117) 09/24/16 08:00 Total Protein 6.6 g/dl (6.4-8.2) 09/24/16 08:00 Albumin 3.5 g/dl (3.4-5.0) 09/24/16 08:00 Urine Color Straw 09/25/16 08:00 Urine Appearance Clear 09/25/16 08:00 Urine pH 7.0 (5.0-8.0) 09/25/16 08:00 Ur Specific [place] 1.005 (1.001-1.035) 09/25/16 08:00 Urine Protein Negative (NEGATIVE) 09/25/16 08:00 Urine Glucose (UA) Negative (NEGATIVE) 09/25/16 08:00 Urine Ketones Negative (NEGATIVE) 09/25/16 08:00 Urine Blood Negative (NEGATIVE) 09/25/16 08:00 Urine Nitrite Negative (NEGATIVE) 09/25/16 08:00 Urine Bilirubin Negative (NEGATIVE) 09/25/16 08:00 Urine Urobilinogen Negative E.U./dl (0.2-1.0) 09/25/16 08:00 Ur Leukocyte Esterase 1+ (NEGATIVE) H 09/25/16 08:00 Urine RBC <1 /hpf (0-3) 09/25/16 08:00 Urine WBC 3 /hpf (3-5) 09/25/16 08:00 Ur Epithelial Cells Rare /hpf (FEW) 09/25/16 08:00 RPR Titer Nonreactive (NONREACTIVE) 09/24/16 08:00 Hepatitis C Antibody >11.0 s/co ratio (0.0-0.9) H 09/24/16 08:00 HIV 1&2 Antibody Screen Negative 09/24/16 08:00 HIV P24 Antigen Negative 09/24/16 08:00 labs noted - Treatment Hospital Course: Detox Protocol Followed, Detoxed Safely, Responded well, Discharged Condition Good, Rehab Referral Accepted Patient has Accepted a Rehab Referral to: [facility] [address] [place] - Medication Discharge Medications: Ambulatory Orders Gabapentin [Neurontin -] 100 mg PO TID 11/05/15 Naproxen [Naprosyn -] 500 mg PO BID 11/05/15 Fluphenazine HCl [Prolixin -] 20 mg PO BID 07/21/16 Amlodipine Besylate [Norvasc -] 5 mg PO DAILY #30 tablet 07/25/16 Fluticasone Prop 0.05% Nasal [Flonase -] 1 spray NS DAILY #1 bot 07/25/16 Ranitidine [Zantac -] 150 mg PO BID #60 tablet 07/25/16 Tamsulosin HCl [Flomax -] 0.4 mg PO DAILY@0830 #30 cap.er.24h 07/25/16 Benztropine Mesylate [Cogentin -] 2 mg PO BID 08/18/16 Benztropine Mesylate [Cogentin -] 1 mg PO HS #30 tablet 09/27/16 Fluphenazine HCl [Prolixin -] 10 mg PO HS #60 tablet 09/27/16 - Diagnosis (1) Alcohol dependence with uncomplicated withdrawal Status: Acute (2) Nicotine dependence Status: Acute Qualifiers: Nicotine product type: cigarettes Substance use status: uncomplicated Qualified Code(s): F17.210 - Nicotine dependence, cigarettes, uncomplicated (3) Arthritis Status: Chronic (4) Asthma Status: Chronic Qualifiers: Asthma severity: mild persistent Asthma complication type: with status asthmaticus Qualified Code(s): J45.32 - Mild persistent asthma with status asthmaticus (5) BPH (benign prostatic hyperplasia) Status: Chronic Qualifiers: Prostatic enlargement morphology: non-nodular Lower urinary tract symptom presence: symptoms present Qualified Code(s): N40.1 - Enlarged prostate with lower urinary tract symptoms (6) Essential hypertension Status: Chronic (7) GERD (gastroesophageal reflux disease) Status: Chronic Qualifiers: Esophagitis presence: without esophagitis Qualified Code(s): K21.9 - Gastro-esophageal reflux disease without esophagitis (8) Paranoid schizophrenia Status: Chronic - AMA Did Patient Leave Against Medical Advice: No
== END 2016-09-27 09:38 | disposition home or self-care (01) | DRG 775 ==
LOC: YASAS 13:24 → Y3N 14:23
PROVIDERS: ADMIT Internal Medicine; ATTEND Internal Medicine
PROC: HZ2ZZZZ Detoxification Services for Substance Abuse Treatment (ICD-10-PCS; principal; 2016-09-27)
DX: F10.230 Alcohol dependence with withdrawal, uncomplicated (principal); F17.210 Nicotine dependence, cigarettes, uncomplicated; G47.00 Insomnia, unspecified; E10.9 Type 1 diabetes mellitus without complications; Z79.4 Long term (current) use of insulin; I10 Essential (primary) hypertension; J45.32 Mild persistent asthma with status asthmaticus; K21.9 Gastro-esophageal reflux disease without esophagitis; G62.9 Polyneuropathy, unspecified; Z91.81 History of falling; R26.2 Difficulty in walking, not elsewhere classified
CPT/HCPCS: 36415; 80053; 81003; 81015; 85027; 86593; 87389; 87522; 93005; 93010

== ENCOUNTER 2017-03-13 09:36 | Inpatient (IN) | payer OTHER ==
[2017-03-13 09:58] VITALS: BMI 27.3
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
[2017-03-13] MEDS ORDERED: hydrOXYzine PAMOATE 50 MG CAPSULE (FP) PO PRN (14:35)
[2017-03-13] MEDS ORDERED: MAGNESIUM HYDROX 2400MG/30ML ORAL SUSPENSION 30 ML CUP PO PRN (14:35)
[2017-03-13] MEDS ORDERED: MAGNESIUM CITRATE 300 ML BOTTLE PO PRN (14:35)
[2017-03-13] MEDS ORDERED: IBUPROFEN 400 MG TABLET (FP) PO PRN (14:35)
[2017-03-13] MEDS ORDERED: diphenhydrAMINE HCL 50 MG CAPSULE PO PRN (14:35)
[2017-03-13] MEDS ORDERED: ACETAMINOPHEN 325 MG TABLET (FP) PO PRN (14:35)
[2017-03-13] MEDS ORDERED: P-EPHED 60MG/TRIPROLIDI 2.5MG TABLET PO PRN (14:35)
[2017-03-13] MEDS ORDERED: LOPERAMIDE HCL 2 MG CAPSULE PO PRN (14:35)
[2017-03-13] MEDS ORDERED: MENTHOL/PHENOL 1 EACH UD MM PRN (14:35)
[2017-03-13] MEDS ORDERED: chlordiazePOXIDE HCL 25 MG CAPSULE PO PRN (14:35)
[2017-03-13] MEDS ORDERED: MAG HYDROX/AL HYDROX/SIMETH 30 ML UNIT-DOSE CUP PO PRN (14:35)
[2017-03-13] MEDS ORDERED: ALBUTEROL SO4 6.7 GM HFA INHALER IH PRN (14:37)
[2017-03-13] MEDS ORDERED: chlordiazePOXIDE HCL 25 MG CAPSULE PO ONE (15:30)
[2017-03-13 17:57] LABS: URINE APPEARANCE CLEAR; URINE BILIRUBIN NEGATIVE (NEGATIVE); URINE BLOOD NEGATIVE (NEGATIVE); URINE COLOR STRAW; URINE GLUCOSE (UA) NEGATIVE (NEGATIVE); URINE KETONE NEGATIVE (NEGATIVE); URINE LEUK ESTERASE NEGATIVE (NEGATIVE); URINE NITRITE NEGATIVE (NEGATIVE); URINE PROTEIN NEGATIVE (NEGATIVE); URINE UROBILINOGEN NEGATIVE mg/dL (0.2-1.0)
[2017-03-13] MEDS: chlordiazePOXIDE HCL 25 MG CAPSULE PO SCH ×2 (19:36→22:33)
[2017-03-13] MEDS: NICOTINE 14 MG/24 HOURS TOPICAL PATCH TD SCH (19:37)
[2017-03-13] MEDS: amLODIPine BESYLATE 5 MG TABLET (FP) PO SCH (22:32)
[2017-03-13] MEDS: THIAMINE HCL 100 MG TABLET (FP) PO SCH (22:32)
[2017-03-13] MEDS: RANITIDINE HCL 150 MG TABLET (FP) PO SCH (22:32)
[2017-03-14] MEDS: chlordiazePOXIDE HCL 25 MG CAPSULE PO SCH ×4 (06:47→22:34)
[2017-03-14 10:05] LABS: MCHC 33.2 g/dl (32.0-35.9); MEAN CELL VOLUME 87.4 fl (80-96); MEAN PLT VOLUME 7.4 fl (7.5-11.1); PLATELET COUNT 230 K/MM3 (134-434); RDW 15.3 % (11.9-15.9); WHITE BLOOD COUNT 5.2 K/mm3 (4.0-10.0)
--- NOTE | 2017-03-14 10:24 | PN ---
[facility] CIWA - CIWA Score Nausea/Vomitin-No Nausea/No Vomiting Muscle Tremors: 4-Moderate,w/Arms Extend Anxiety: 4-Mod. Anxious/Guarded Agitation: 4-Moderately Restless Paroxysmal Sweats: 1-Minimal Palms Moist Orientation: 0-Oriented Tacttile Disturbances: 3-Moderate Itch/Numb/Burn Auditory Disturbances: 0-None Visual Disturbances: 0-None Headache: 0-None Present CIWA-Ar Total Score: 16 S Progress Note (SOAP) Subjective: ANXIETY,SWEATS,TREMORS, YAWNING, CHRONIC KNEE PAIN AND TAKES NAPROSYN 500 MG POBID. Objective: 03/14/17 10:21 Vital Signs Temperature 97.4 F L 03/14/17 09:29 Pulse Rate 70 03/14/17 09:29 Respiratory Rate 18 03/14/17 09:29 Blood Pressure 136/81 03/14/17 09:29 O2 Sat by Pulse Oximetry (%) Laboratory Last Values WBC 5.2 K/mm3 (4.0-10.0) 03/14/17 07:00 RBC 4.47 M/mm3 (4.00-5.60) 03/14/17 07:00 Hgb 13.0 GM/dL (11.7-16.9) 03/14/17 07:00 Hct 39.1 % (35.4-49) 03/14/17 07:00 MCV 87.4 fl (80-96) 03/14/17 07:00 MCH 29.0 pg (25.7-33.7) 03/14/17 07:00 MCHC 33.2 g/dl (32.0-35.9) 03/14/17 07:00 RDW 15.3 % (11.9-15.9) 03/14/17 07:00 Plt Count 230 K/MM3 (134-434) 03/14/17 07:00 MPV 7.4 fl (7.5-11.1) L 03/14/17 07:00 POC Glucometer 94 UNITS (()) 03/13/17 12:31 Urine Color Straw 03/13/17 15:00 Urine Appearance Clear 03/13/17 15:00 Urine pH 6.0 (5.0-8.0) 03/13/17 15:00 Ur Specific [place] <= 1.005 (1.005-1.025) 03/13/17 15:00 Urine Protein Negative (NEGATIVE) 03/13/17 15:00 Urine Glucose (UA) Negative (NEGATIVE) 03/13/17 15:00 Urine Ketones Negative (NEGATIVE) 03/13/17 15:00 Urine Blood Negative (NEGATIVE) 03/13/17 15:00 Urine Nitrite Negative (NEGATIVE) 03/13/17 15:00 Urine Bilirubin Negative (NEGATIVE) 03/13/17 15:00 Urine Urobilinogen Negative mg/dL (0.2-1.0) 03/13/17 15:00 Ur Leukocyte Esterase Negative (NEGATIVE) 03/13/17 15:00 Assessment: 03/14/17 10:21 WITHDRAWAL SX Plan: CONTINUE DETOX INCREASE PO FLUIDS.
[2017-03-14 10:31] LABS: ALBUMIN 3.6 g/dl (3.4-5.0); ANION GAP 7 (8-16); CALCIUM 8.8 mg/dL (8.5-10.1); CO2 28 mmol/L (21-32); CREATININE 0.7 mg/dL (0.7-1.3); GLUCOSE,RANDOM 76 mg/dL (74-106); SGOT/AST 12 U/L (15-37); SGPT/ALT 16 U/L (12-78)
[2017-03-14 10:33] LABS: ALK PHOS 87 U/L (45-117); BILIRUBIN,TOTAL 0.9 mg/dL (0.2-1.0); TOT PROT 6.6 g/dl (6.4-8.2)
[2017-03-14] MEDS: amLODIPine BESYLATE 5 MG TABLET (FP) PO SCH ×2 (10:34→22:34)
[2017-03-14] MEDS: RANITIDINE HCL 150 MG TABLET (FP) PO SCH ×2 (10:34→22:34)
[2017-03-14] MEDS: PRENATAL VITAMINS W/ FOLIC ACID TABLET (FP) PO SCH (10:35)
[2017-03-14] MEDS: NICOTINE 14 MG/24 HOURS TOPICAL PATCH TD SCH (10:35)
[2017-03-14] MEDS: TAMSULOSIN HCL 0.4 MG CAP.ER.24H (FP) PO SCH (10:35)
[2017-03-14] MEDS ORDERED: NAPROXEN 500 MG TABLET (FP) PO ONE (11:15)
[2017-03-14 12:14] LABS: HIV 1 & 2 AB NEGATIVE; HIV 1 AGp24 NEGATIVE
--- NOTE | 2017-03-14 12:42 | CONSULT ---
[facility] Psychiatric Consult - Data Date of interview: 03/14/17 Admission source: [facility] Identifying data: Readmission to [facility] for this 56 y/o AA male seeking detox treatment on for alcohol dependence.Patient is single without children,homeless,unemployed and supported on SSI benefits. Substance Abuse History: Confirmed by patient in this interview. - Smoking Cessation. Smoking history: Current every day smoker. Have you smoked in the past 12 months: Yes. Aproximately how many cigarettes per day: 7. Cigars Per Day: 0. Hx Chewing Tobacco Use: No. Initiated information on smoking cessation : Yes. 'Breaking Loose' booklet given: 03/13/17. - Substance & Tx. History. Hx Alcohol Use: Yes. Hx Substance Use: No. Substance Use Type: Alcohol. Hx Substance Use Treatment: Yes (last detox in september 2016). - Substances Abused. Alcohol. Route: Oral. Frequency: 3-6 times per week. Amount used: [employer] BEERS 3-4(24 OZ). Age of first use: 18. Date of Last Use: 03/12/17 Medical History: Significant for a history of eye surgery (detached retina in left eye),hypertension,bronchial asthma,GERD,BPH (benign prostatic hyperplasia), arthritis (walks with cane),diabetes mellitus,peripheral neuropathy and past treatment for syphilis. Psychiatric History: Diagnosed with Paranoid Schizophrenia.Mr East presents with a family history of mental illness (biological father and two siblings are reportedly diagnosed with schizophrenia).History of multiple psychiatric hospitalizations.Patient is known to several facilities : [facility] ,[facility] and [facility].States that he sees a psychiatrist at [facility] in the [place].Still maintaied on prolixin 10 mg/hs + cogentin 1 mg/hs (self-report).Sporadic adherence to psychotropic medications.Mr East denies history of suicide attempts. Physical/Sexual Abuse/Trauma History: Patient denies. Additional Comment: Urine Drug Screen Results: OPI-Opiates.Noted. Mental Status Exam - Mental Status Exam Alert and Oriented to: Time (walks with a cane), Place, Person Cognitive Function: Good Patient Appearance: Unkempt, Disheveled Mood: Nervous, Withdrawn Affect: Mood Congruent Patient Behavior: Fatigued, Cooperative Speech Pattern: Clear Voice Loudness: Normal Thought Process: Goal Oriented Thought Disorder: Not Present Hallucinations: Denies Suicidal Ideation: Denies Homicidal Ideation: Denies Insight/Judgement: Poor Sleep: Poorly, Difficulty falling asleep Appetite: Fair Gait/Station: Other (wals with a cane) Psychiatric Findings - Problem List ([place] 1, 2,3) (1) Paranoid schizophrenia Current Visit: Yes Status: Chronic (2) Alcohol dependence with uncomplicated withdrawal Current Visit: Yes Status: Acute (3) Nicotine dependence Current Visit: Yes Status: Acute Qualifiers: Nicotine product type: cigarettes Substance use status: uncomplicated Qualified Code(s): F17.210 - Nicotine dependence, cigarettes, uncomplicated (4) Arthritis Current Visit: Yes Status: Chronic (5) BPH (benign prostatic hyperplasia) Current Visit: Yes Status: Chronic Qualifiers: Lower urinary tract symptom presence: symptoms present Comment: TAMSULOSIN 0.4 MG EXTEND (6) Diabetes mellitus Current Visit: Yes Status: Chronic Qualifiers: Diabetes mellitus type: other specified (including LUIS MANUEL) Diabetes mellitus complication status: without complication Diabetes mellitus senior living insulin use: unspecified terminal operations supervisor insulin use status Qualified Code (s): E13.9 - Other specified diabetes mellitus without complications; Z79.4 - manager terminal (current) use of insulin (7) Essential hypertension Current Visit: Yes Status: Chronic Comment: AMLODIPINE CLONIDIN PRN (8) GERD (gastroesophageal reflux disease) Current Visit: Yes Status: Chronic Qualifiers: Esophagitis presence: without esophagitis Qualified Code(s): K21.9 - Gastro-esophageal reflux disease without esophagitis Comment: ZANTAC (9) Asthma Current Visit: Yes Status: Chronic Qualifiers: Asthma severity: mild persistent Asthma complication type: with status asthmaticus Qualified Code(s): J45.32 - Mild persistent asthma with status asthmaticus Comment: VENTOLIN+NEBULIZER+PREDNISON+AZITHROMYCIN (10) Neuropathy Current Visit: Yes Status: Chronic Comment: NEURONTIN 100 MG TID (11) Use of cane as ambulatory aid Current Visit: Yes Status: Chronic (12) Insomnia Current Visit: Yes Status: Chronic - Initial Treatment Plan Initial Treatment Plan: Psychoeducation.Detoxification.Medications : prolixin 10 mg po hs + cogentin 1 mg po hs.Side effects/benefits of both drugs are discussed with patient.Made aware of risk for neuroleptic malignant syndrome, dyskinesias,akathisia and blurred vision,urinary hesitancy (cogentin).patient insisits on resuming his medications.Observation and falls precautions.
--- NOTE | 2017-03-14 19:17 | EKG ---
Test Reason : Blood Pressure : / mmHG Vent. Rate : 069 BPM Atrial Rate : 069 BPM P-R Int : 190 ms QRS Dur : 084 ms QT Int : 406 ms P-R-T Axes : 064 -01 047 degrees QTc Int : 435 ms NORMAL SINUS RHYTHM POSSIBLE LEFT ATRIAL ENLARGEMENT SEPTAL INFARCT (CITED ON OR BEFORE 23-SEP-2016) ABNORMAL ECG WHEN COMPARED WITH ECG OF 23-SEP-2016 17:51, NO SIGNIFICANT CHANGE WAS FOUND REPEAT EKG IF CLINICALLY INDICATED Confirmed by KATHY ROWE MD ([id number]) on 03/14/2017 7:17:16 PM Referred By: Confirmed By:KATHY ROWE MD
[2017-03-14] MEDS: NAPROXEN 500 MG TABLET (FP) PO SCH (22:00)
[2017-03-14] MEDS: THIAMINE HCL 100 MG TABLET (FP) PO SCH (22:34)
[2017-03-14] MEDS: BENZTROPINE MESYLATE 1 MG TABLET (FP) PO SCH (22:35)
[2017-03-15] MEDS: chlordiazePOXIDE HCL 25 MG CAPSULE PO SCH ×2 (05:42→10:48)
[2017-03-15] MEDS: TAMSULOSIN HCL 0.4 MG CAP.ER.24H (FP) PO SCH (10:48)
[2017-03-15] MEDS: amLODIPine BESYLATE 5 MG TABLET (FP) PO SCH ×2 (10:48→22:19)
[2017-03-15] MEDS: PRENATAL VITAMINS W/ FOLIC ACID TABLET (FP) PO SCH (10:48)
[2017-03-15] MEDS: NAPROXEN 500 MG TABLET (FP) PO SCH ×2 (10:48→22:19)
[2017-03-15] MEDS: RANITIDINE HCL 150 MG TABLET (FP) PO SCH ×2 (10:49→22:20)
[2017-03-15] MEDS: NICOTINE POLACRILEX 2 MG GUM BC PRN (10:49)
[2017-03-15] MEDS: NICOTINE 14 MG/24 HOURS TOPICAL PATCH TD SCH (10:49)
--- NOTE | 2017-03-15 11:32 | PN ---
[facility] CIWA - CIWA Score Nausea/Vomitin-No Nausea/No Vomiting Muscle Tremors: 4-Moderate,w/Arms Extend Anxiety: 4-Mod. Anxious/Guarded Agitation: 3 Paroxysmal Sweats: 1-Minimal Palms Moist Orientation: 0-Oriented Tacttile Disturbances: 3-Moderate Itch/Numb/Burn Auditory Disturbances: 0-None Visual Disturbances: 0-None Headache: 0-None Present CIWA-Ar Total Score: 15 S Progress Note (SOAP) Subjective: ANXIETY,TREMORS, SWEATS/CHILLS,BOTH KNEES AND LOWER LEG PAIN. Objective: 03/15/17 11:30 Laboratory Last Values WBC 5.2 K/mm3 (4.0-10.0) 03/14/17 07:00 RBC 4.47 M/mm3 (4.00-5.60) 03/14/17 07:00 Hgb 13.0 GM/dL (11.7-16.9) 03/14/17 07:00 Hct 39.1 % (35.4-49) 03/14/17 07:00 MCV 87.4 fl (80-96) 03/14/17 07:00 MCH 29.0 pg (25.7-33.7) 03/14/17 07:00 MCHC 33.2 g/dl (32.0-35.9) 03/14/17 07:00 RDW 15.3 % (11.9-15.9) 03/14/17 07:00 Plt Count 230 K/MM3 (134-434) 03/14/17 07:00 MPV 7.4 fl (7.5-11.1) L 03/14/17 07:00 Sodium 136 mmol/L (136-145) 03/14/17 07:00 Potassium 4.1 mmol/L (3.5-5.1) 03/14/17 07:00 Chloride 101 mmol/L (98-107) 03/14/17 07:00 Carbon Dioxide 28 mmol/L (21-32) 03/14/17 07:00 Anion Gap 7 (8-16) L 03/14/17 07:00 BUN 10 mg/dL (7-18) 03/14/17 07:00 Creatinine 0.7 mg/dL (0.7-1.3) 03/14/17 07:00 Creat Clearance w eGFR > 60 (>60) 03/14/17 07:00 POC Glucometer 94 UNITS (()) 03/13/17 12:31 Random Glucose 76 mg/dL (74-106) D 03/14/17 07:00 Calcium 8.8 mg/dL (8.5-10.1) 03/14/17 07:00 Total Bilirubin 0.9 mg/dL (0.2-1.0) D 03/14/17 07:00 AST 12 U/L (15-37) L D 03/14/17 07:00 ALT 16 U/L (12-78) D 03/14/17 07:00 Alkaline Phosphatase 87 U/L (45-117) 03/14/17 07:00 Total Protein 6.6 g/dl (6.4-8.2) 03/14/17 07:00 Albumin 3.6 g/dl (3.4-5.0) 03/14/17 07:00 Urine Color Straw 03/13/17 15:00 Urine Appearance Clear 03/13/17 15:00 Urine pH 6.0 (5.0-8.0) 03/13/17 15:00 Ur Specific [place] <= 1.005 (1.005-1.025) 03/13/17 15:00 Urine Protein Negative (NEGATIVE) 03/13/17 15:00 Urine Glucose (UA) Negative (NEGATIVE) 03/13/17 15:00 Urine Ketones Negative (NEGATIVE) 03/13/17 15:00 Urine Blood Negative (NEGATIVE) 03/13/17 15:00 Urine Nitrite Negative (NEGATIVE) 03/13/17 15:00 Urine Bilirubin Negative (NEGATIVE) 03/13/17 15:00 Urine Urobilinogen Negative mg/dL (0.2-1.0) 03/13/17 15:00 Ur Leukocyte Esterase Negative (NEGATIVE) 03/13/17 15:00 HIV 1&2 Antibody Screen Negative 03/14/17 07:00 HIV P24 Antigen Negative 03/14/17 07:00 Vital Signs Temperature 96.2 F L 03/15/17 10:19 Pulse Rate 91 H 03/15/17 10:19 Respiratory Rate 20 03/15/17 10:19 Blood Pressure 129/73 03/15/17 10:19 O2 Sat by Pulse Oximetry (%) Assessment: 03/15/17 11:30 WITHDRAWAL SX CHRONIC KNEE/LEG PAIN 03/15/17 11:32 Plan: CONTINUE DETOX ANALGESIC BALM TO AFFECTED AREAS TID
[2017-03-15] MEDS: METHYL SALICYLATE/MENTHOL OINT 30 GM TUBE TP SCH ×2 (14:00→22:19)
[2017-03-15] MEDS: guaiFENesin/D-METHORPHAN HB 10 ML UNIT-DOSE CUPS PO PRN (17:16)
[2017-03-15] MEDS: chlordiazePOXIDE 5 MG CAPSULE PO SCH ×2 (17:17→22:20)
[2017-03-15] MEDS: THIAMINE HCL 100 MG TABLET (FP) PO SCH (22:19)
[2017-03-15] MEDS: BENZTROPINE MESYLATE 1 MG TABLET (FP) PO SCH (22:20)
[2017-03-16] MEDS: chlordiazePOXIDE 5 MG CAPSULE PO SCH ×2 (05:39→10:26)
[2017-03-16] MEDS: METHYL SALICYLATE/MENTHOL OINT 30 GM TUBE TP SCH ×3 (05:41→22:29)
[2017-03-16] MEDS: amLODIPine BESYLATE 5 MG TABLET (FP) PO SCH ×2 (10:26→22:29)
[2017-03-16] MEDS: RANITIDINE HCL 150 MG TABLET (FP) PO SCH ×2 (10:26→22:30)
[2017-03-16] MEDS: TAMSULOSIN HCL 0.4 MG CAP.ER.24H (FP) PO SCH (10:26)
[2017-03-16] MEDS: PRENATAL VITAMINS W/ FOLIC ACID TABLET (FP) PO SCH (10:26)
[2017-03-16] MEDS: NAPROXEN 500 MG TABLET (FP) PO SCH ×2 (10:27→22:30)
[2017-03-16] MEDS: NICOTINE POLACRILEX 2 MG GUM BC PRN (10:30)
--- NOTE | 2017-03-16 12:05 | PN ---
S Progress Note (SOAP) Subjective: ANXIETY,SLIGHT TREMORS, OOB AMBULATING ON HALLWAY WITH CANE. ALERT O X 3.NAD. Objective: 03/16/17 12:05 Vital Signs Temperature 96.7 F L 03/16/17 10:38 Pulse Rate 73 03/16/17 10:38 Respiratory Rate 18 03/16/17 10:38 Blood Pressure 128/80 03/16/17 10:38 O2 Sat by Pulse Oximetry (%) Laboratory Last Values WBC 5.2 K/mm3 (4.0-10.0) 03/14/17 07:00 RBC 4.47 M/mm3 (4.00-5.60) 03/14/17 07:00 Hgb 13.0 GM/dL (11.7-16.9) 03/14/17 07:00 Hct 39.1 % (35.4-49) 03/14/17 07:00 MCV 87.4 fl (80-96) 03/14/17 07:00 MCH 29.0 pg (25.7-33.7) 03/14/17 07:00 MCHC 33.2 g/dl (32.0-35.9) 03/14/17 07:00 RDW 15.3 % (11.9-15.9) 03/14/17 07:00 Plt Count 230 K/MM3 (134-434) 03/14/17 07:00 MPV 7.4 fl (7.5-11.1) L 03/14/17 07:00 Sodium 136 mmol/L (136-145) 03/14/17 07:00 Potassium 4.1 mmol/L (3.5-5.1) 03/14/17 07:00 Chloride 101 mmol/L (98-107) 03/14/17 07:00 Carbon Dioxide 28 mmol/L (21-32) 03/14/17 07:00 Anion Gap 7 (8-16) L 03/14/17 07:00 BUN 10 mg/dL (7-18) 03/14/17 07:00 Creatinine 0.7 mg/dL (0.7-1.3) 03/14/17 07:00 Creat Clearance w eGFR > 60 (>60) 03/14/17 07:00 POC Glucometer 89 UNITS (()) 03/16/17 05:45 Random Glucose 76 mg/dL (74-106) D 03/14/17 07:00 Calcium 8.8 mg/dL (8.5-10.1) 03/14/17 07:00 Total Bilirubin 0.9 mg/dL (0.2-1.0) D 03/14/17 07:00 AST 12 U/L (15-37) L D 03/14/17 07:00 ALT 16 U/L (12-78) D 03/14/17 07:00 Alkaline Phosphatase 87 U/L (45-117) 03/14/17 07:00 Total Protein 6.6 g/dl (6.4-8.2) 03/14/17 07:00 Albumin 3.6 g/dl (3.4-5.0) 03/14/17 07:00 Urine Color Straw 03/13/17 15:00 Urine Appearance Clear 03/13/17 15:00 Urine pH 6.0 (5.0-8.0) 03/13/17 15:00 Ur Specific [place] <= 1.005 (1.005-1.025) 03/13/17 15:00 Urine Protein Negative (NEGATIVE) 03/13/17 15:00 Urine Glucose (UA) Negative (NEGATIVE) 03/13/17 15:00 Urine Ketones Negative (NEGATIVE) 03/13/17 15:00 Urine Blood Negative (NEGATIVE) 03/13/17 15:00 Urine Nitrite Negative (NEGATIVE) 03/13/17 15:00 Urine Bilirubin Negative (NEGATIVE) 03/13/17 15:00 Urine Urobilinogen Negative mg/dL (0.2-1.0) 03/13/17 15:00 Ur Leukocyte Esterase Negative (NEGATIVE) 03/13/17 15:00 RPR Titer Nonreactive (NONREACTIVE) 03/14/17 07:00 HIV 1&2 Antibody Screen Negative 03/14/17 07:00 HIV P24 Antigen Negative 03/14/17 07:00 Assessment: 03/16/17 12:05 WITHDRAWAL SX Plan: CONTINUE DETOX
[2017-03-16] MEDS: chlordiazePOXIDE HCL 10 MG CAPSULE PO SCH ×2 (17:21→22:29)
[2017-03-16] MEDS: THIAMINE HCL 100 MG TABLET (FP) PO SCH (22:29)
[2017-03-16] MEDS: BENZTROPINE MESYLATE 1 MG TABLET (FP) PO SCH (22:30)
[2017-03-16] MEDS: guaiFENesin/D-METHORPHAN HB 10 ML UNIT-DOSE CUPS PO PRN (23:20)
[2017-03-17] MEDS: chlordiazePOXIDE HCL 10 MG CAPSULE PO SCH (05:44)
[2017-03-17] MEDS: METHYL SALICYLATE/MENTHOL OINT 30 GM TUBE TP SCH (05:45)
[2017-03-17 07:02] VITALS: TEMP 97
[2017-03-17 09:45] VITALS: BP 130/86; PULSE 84
[2017-03-17] MEDS: TAMSULOSIN HCL 0.4 MG CAP.ER.24H (FP) PO SCH (10:40)
[2017-03-17] MEDS: RANITIDINE HCL 150 MG TABLET (FP) PO SCH (10:40)
[2017-03-17] MEDS: amLODIPine BESYLATE 5 MG TABLET (FP) PO SCH (10:40)
[2017-03-17] MEDS: NAPROXEN 500 MG TABLET (FP) PO SCH (10:40)
[2017-03-17] MEDS: PRENATAL VITAMINS W/ FOLIC ACID TABLET (FP) PO SCH (10:41)
[2017-03-17] MEDS: NICOTINE POLACRILEX 2 MG GUM BC PRN (10:42)
--- NOTE | 2017-03-18 15:27 | DS ---
[facility] Detox Discharge Summary Admission Date: 03/13/17 Discharge Date: 03/17/17 - History Present History: Alcohol Dependence Additional Comments: PATIENT GOING HOME. PATIENT ADVISED TO FOLLOW-UP WITH LOCAL 12-STEP / AA OUTPATIENT SUPPORT GROUPS FOR AFTERCARE. PATIENT WAS DISCHARGED FROM DETOX UNIT IN STABLE MEDICAL CONDITION. Pertinent Past History: Asthma, GERD, HTN, DM, Hypercholesterolemia, BPH, Use of Cane as Ambulatory Aid , Neuropathy, Paranoid Schizophrenia, Insomnia, Arthritis. - Physical Exam Results Vital Signs: Vital Signs Temperature 97.0 F L 03/17/17 09:44 Pulse Rate 84 03/17/17 09:44 Respiratory Rate 20 03/17/17 09:44 Blood Pressure 130/86 03/17/17 09:44 O2 Sat by Pulse Oximetry (%) Pertinent Admission Physical Exam Findings: WITHDRAWAL SYMPTOMS. Laboratory Tests 03/13/17 03/13/17 03/14/17 12:31 15:00 07:00 WBC RBC Hgb Hct MCV MCH MCHC RDW Plt Count MPV Sodium Potassium Chloride Carbon Dioxide Anion Gap BUN Creatinine Creat Clearance w eGFR POC Glucometer 94 Random Glucose Calcium Total Bilirubin AST ALT Alkaline Phosphatase Total Protein Albumin Urine Color Straw Urine Appearance Clear Urine pH 6.0 Ur Specific [place] <= 1.005 Urine Protein Negative Urine Glucose (UA) Negative Urine Ketones Negative Urine Blood Negative Urine Nitrite Negative Urine Bilirubin Negative Urine Urobilinogen Negative Ur Leukocyte Esterase Negative RPR Titer HIV 1&2 Antibody Screen Negative HIV P24 Antigen Negative 03/14/17 03/14/17 03/14/17 07:00 07:00 07:00 WBC 5.2 RBC 4.47 Hgb 13.0 Hct 39.1 MCV 87.4 MCH 29.0 MCHC 33.2 RDW 15.3 Plt Count 230 MPV 7.4 L Sodium 136 Potassium 4.1 Chloride 101 Carbon Dioxide 28 Anion Gap 7 L BUN 10 Creatinine 0.7 Creat Clearance w eGFR > 60 POC Glucometer Random Glucose 76 D Calcium 8.8 Total Bilirubin 0.9 D AST 12 L D ALT 16 D Alkaline Phosphatase 87 Total Protein 6.6 Albumin 3.6 Urine Color Urine Appearance Urine pH Ur Specific [place] Urine Protein Urine Glucose (UA) Urine Ketones Urine Blood Urine Nitrite Urine Bilirubin Urine Urobilinogen Ur Leukocyte Esterase RPR Titer Nonreactive HIV 1&2 Antibody Screen HIV P24 Antigen 08/25/17 08/26/17 05:45 05:43 WBC RBC Hgb Hct MCV MCH MCHC RDW Plt Count MPV Sodium Potassium Chloride Carbon Dioxide Anion Gap BUN Creatinine Creat Clearance w eGFR POC Glucometer 89 98 Random Glucose Calcium Total Bilirubin AST ALT Alkaline Phosphatase Total Protein Albumin Urine Color Urine Appearance Urine pH Ur Specific [place] Urine Protein Urine Glucose (UA) Urine Ketones Urine Blood Urine Nitrite Urine Bilirubin Urine Urobilinogen Ur Leukocyte Esterase RPR Titer HIV 1&2 Antibody Screen HIV P24 Antigen LABS NOTED. - Treatment Hospital Course: Detox Protocol Followed, Detoxed Safely, Responded well, Discharged Condition Good Patient has Accepted a Rehab Referral to: PT. GOING HOME; PT. ADVISED TO CONSIDER LOCAL 12-STEP/AA SUPPORT GROUPS. - Medication Discharge Medications: Ambulatory Orders Gabapentin [Neurontin -] 100 mg PO BID 11/05/15 Naproxen [Naprosyn -] 500 mg PO BID 11/05/15 Fluphenazine HCl [Prolixin -] 5 mg PO HS 07/21/16 Fluticasone Prop 0.05% Nasal [Flonase -] 1 spray NS DAILY #1 bot 07/25/16 Ranitidine [Zantac -] 150 mg PO BID #60 tablet 07/25/16 Tamsulosin HCl [Flomax -] 0.4 mg PO DAILY@0830 #30 cap.er.24h 07/25/16 Benztropine Mesylate [Cogentin -] 1 mg PO HS #30 tablet 09/27/16 Albuterol Sulfate Inhaler - [Ventolin Hfa Inhaler -] 2 inh PO Q4H PRN 03/13/17 Amlodipine Besylate [Norvasc -] 5 mg PO BID 03/13/17 Fluphenazine HCl [Prolixin -] 10 mg PO DAILY 03/13/17 Benztropine Mesylate [Cogentin -] 1 mg PO HS #30 tablet 03/14/17 Fluphenazine HCl [Prolixin -] 10 mg PO HS #60 tablet 03/14/17 - Diagnosis (1) Alcohol dependence with uncomplicated withdrawal Status: Acute (2) Nicotine dependence Status: Chronic Qualifiers: Nicotine product type: cigarettes Substance use status: uncomplicated Qualified Code(s): F17.210 - Nicotine dependence, cigarettes, uncomplicated (3) Arthritis Status: Chronic (4) Asthma Status: Chronic Qualifiers: Asthma severity: mild persistent Asthma complication type: with status asthmaticus Qualified Code(s): J45.32 - Mild persistent asthma with status asthmaticus (5) Diabetes mellitus Status: Chronic Qualifiers: Diabetes mellitus type: other specified (including LUIS MANUEL) Diabetes mellitus complication status: without complication Diabetes mellitus alf insulin use: unspecified equipment operator intermodal yard insulin use status Qualified Code (s): E13.9 - Other specified diabetes mellitus without complications; Z79.4 - rodent exterminator (current) use of insulin (6) Essential hypertension Status: Chronic (7) GERD (gastroesophageal reflux disease) Status: Chronic Qualifiers: Esophagitis presence: without esophagitis Qualified Code(s): K21.9 - Gastro-esophageal reflux disease without esophagitis (8) Insomnia Status: Chronic Qualifiers: Insomnia type: unspecified Qualified Code(s): G47.00 - Insomnia, unspecified (9) Neuropathy Status: Chronic (10) Paranoid schizophrenia Status: Chronic (11) Use of cane as ambulatory aid Status: Chronic (12) BPH (benign prostatic hyperplasia) Status: Chronic - AMA Did Patient Leave Against Medical Advice: No
== END 2017-03-17 11:35 | disposition home or self-care (01) | DRG 775 ==
LOC: YASAS 09:36 → Y3N 13:46
PROVIDERS: ADMIT Internal Medicine; ATTEND Internal Medicine
PROC: HZ2ZZZZ Detoxification Services for Substance Abuse Treatment (ICD-10-PCS; principal; 2017-03-17)
DX: F10.230 Alcohol dependence with withdrawal, uncomplicated (principal); F17.210 Nicotine dependence, cigarettes, uncomplicated; F20.0 Paranoid schizophrenia; G62.9 Polyneuropathy, unspecified; I10 Essential (primary) hypertension; J45.32 Mild persistent asthma with status asthmaticus; K21.9 Gastro-esophageal reflux disease without esophagitis; M12.9 Arthropathy, unspecified; E13.9 Other specified diabetes mellitus without complications; Z79.4 Long term (current) use of insulin; R63.4 Abnormal weight loss; Z99.89 Dependence on other enabling machines and devices; N40.0 Benign prostatic hyperplasia without lower urinary tract symptoms; Z91.81 History of falling
CPT/HCPCS: 36415; 80053; 81003; 85027; 86593; 87389; 93005; 93010

== ENCOUNTER 2017-05-03 09:44 | Inpatient (IN) | payer OTHER ==
[2017-05-03 12:06] VITALS: BMI 30.4
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
[2017-05-03] MEDS ORDERED: MAG HYDROX/AL HYDROX/SIMETH 30 ML UNIT-DOSE CUP PO PRN (19:30)
[2017-05-03] MEDS ORDERED: MAGNESIUM CITRATE 300 ML BOTTLE PO PRN (19:30)
[2017-05-03] MEDS ORDERED: chlordiazePOXIDE HCL 25 MG CAPSULE PO PRN (19:30)
[2017-05-03] MEDS ORDERED: LOPERAMIDE HCL 2 MG CAPSULE PO PRN (19:30)
[2017-05-03] MEDS ORDERED: MAGNESIUM HYDROX 2400MG/30ML ORAL SUSPENSION 30 ML CUP PO PRN (19:30)
[2017-05-03] MEDS ORDERED: guaiFENesin/D-METHORPHAN HB 10 ML UNIT-DOSE CUPS PO PRN (19:30)
[2017-05-03] MEDS ORDERED: MENTHOL/PHENOL 1 EACH UD MM PRN (19:30)
[2017-05-03] MEDS ORDERED: P-EPHED 60MG/TRIPROLIDI 2.5MG TABLET PO PRN (19:30)
[2017-05-03] MEDS ORDERED: diphenhydrAMINE HCL 50 MG CAPSULE PO PRN (19:30)
[2017-05-03] MEDS: amLODIPine BESYLATE 10 MG TABLET (FP) PO SCH (20:47)
[2017-05-03] MEDS: RANITIDINE HCL 150 MG TABLET (FP) PO SCH (23:06)
[2017-05-03] MEDS: chlordiazePOXIDE HCL 25 MG CAPSULE PO SCH (23:06)
[2017-05-03] MEDS: THIAMINE HCL 100 MG TABLET (FP) PO SCH (23:06)
[2017-05-03] MEDS: MINERAL OIL/PETROLAT/WATER TOPICAL CREAM 113 GM JAR TP SCH (23:07)
[2017-05-04 01:48] LABS: URINE APPEARANCE CLEAR; URINE BILIRUBIN NEGATIVE (NEGATIVE); URINE BLOOD NEGATIVE (NEGATIVE); URINE COLOR STRAW; URINE GLUCOSE (UA) NEGATIVE (NEGATIVE); URINE KETONE NEGATIVE (NEGATIVE); URINE NITRITE NEGATIVE (NEGATIVE); URINE PROTEIN NEGATIVE (NEGATIVE); URINE UROBILINOGEN NEGATIVE mg/dL (0.2-1.0)
[2017-05-04] MEDS: chlordiazePOXIDE HCL 25 MG CAPSULE PO SCH ×4 (06:10→22:27)
[2017-05-04] MEDS: metFORMIN HCL 500 MG TABLET (FP) PO SCH ×2 (06:11→17:23)
[2017-05-04] MEDS: ALBUTEROL SO4 18 GM HFA INHALER IH PRN (06:14)
[2017-05-04] MEDS: ACETAMINOPHEN 325 MG TABLET (FP) PO PRN (07:11)
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
[2017-05-04 09:49] LABS: MCH 29.5 pg (25.7-33.7); MCHC 32.7 g/dl (32.0-35.9); MEAN CELL VOLUME 90.1 fl (80-96); MEAN PLT VOLUME 7.5 fl (7.5-11.1); PLATELET COUNT 352 K/MM3 (134-434); RDW 15.2 % (11.9-15.9); WHITE BLOOD COUNT 5.1 K/mm3 (4.0-10.0)
[2017-05-04 10:00] LABS: URINE LEUK ESTERASE Negative (NEGATIVE)
[2017-05-04] MEDS ORDERED: GABAPENTIN 100 MG CAPSULE (FP) PO SCH (10:00)
[2017-05-04 10:14] LABS: ALK PHOS 98 U/L (45-117); ANION GAP 6 (8-16); BILIRUBIN,TOTAL 0.8 mg/dL (0.2-1.0); CALCIUM 9.2 mg/dL (8.5-10.1); CO2 31 mmol/L (21-32); CREATININE 0.8 mg/dL (0.7-1.3); GLUCOSE,RANDOM 125 mg/dL (74-106); SGOT/AST 30 U/L (15-37); SGPT/ALT 29 U/L (12-78); TOT PROT 8.2 g/dl (6.4-8.2)
[2017-05-04] MEDS: TAMSULOSIN HCL 0.4 MG CAP.ER.24H (FP) PO SCH (10:44)
[2017-05-04] MEDS: PRENATAL VITAMINS W/ FOLIC ACID TABLET (FP) PO SCH (10:44)
[2017-05-04] MEDS: RANITIDINE HCL 150 MG TABLET (FP) PO SCH ×2 (10:44→22:27)
[2017-05-04] MEDS: amLODIPine BESYLATE 10 MG TABLET (FP) PO SCH (10:44)
[2017-05-04] MEDS: NAPROXEN 500 MG TABLET (FP) PO SCH ×2 (10:44→22:27)
[2017-05-04] MEDS: NICOTINE 14 MG/24 HOURS TOPICAL PATCH TD SCH (10:45)
[2017-05-04] MEDS: NICOTINE POLACRILEX 2 MG GUM BUC PRN (10:45)
[2017-05-04] MEDS: FLUTICASONE PROP 0.05% 16 GM NASAL SPRAY NS SCH (10:46)
--- NOTE | 2017-05-04 12:33 | PN ---
[facility] CIWA - CIWA Score Nausea/Vomitin Muscle Tremors: 3 Anxiety: 3 Agitation: 1-Slight > Activity Paroxysmal Sweats: No Perspiration Orientation: 0-Oriented Tacttile Disturbances: 2-Mild Itch/Numbness/Burn Auditory Disturbances: 1-Very Mild Visual Disturbances: 2-Mild Sensitivity Headache: 0-None Present CIWA-Ar Total Score: 17 S Progress Note (SOAP) Subjective: Interrupted sleep, Body Aches, Vomiting, Stomach Cramping, Constipation. Objective: PT. A & O X 3, OBSERVED AMBULATING ON UNIT. NO ACUTE DISTRESS. PT. DENIES CHEST PAIN. 05/04/17 12:31 Vital Signs Temperature 97.3 F L 05/04/17 10:49 Pulse Rate 91 H 05/04/17 10:49 Respiratory Rate 20 05/04/17 10:49 Blood Pressure 150/88 05/04/17 10:49 O2 Sat by Pulse Oximetry (%) Laboratory Tests 05/03/17 05/03/17 05/04/17 13:45 20:41 06:09 WBC RBC Hgb Hct MCV MCH MCHC RDW Plt Count MPV Sodium Potassium Chloride Carbon Dioxide Anion Gap BUN Creatinine Creat Clearance w eGFR POC Glucometer 110 99 Random Glucose Calcium Total Bilirubin AST ALT Alkaline Phosphatase Total Protein Albumin Urine Color Straw Urine Appearance Clear Urine pH 6.0 Ur Specific [place] 1.010 Urine Protein Negative Urine Glucose (UA) Negative Urine Ketones Negative Urine Blood Negative Urine Nitrite Negative Urine Bilirubin Negative Urine Urobilinogen Negative Ur Leukocyte Esterase Negative RPR Titer 05/04/17 05/04/17 05/04/17 07:00 07:00 07:00 WBC 5.1 RBC 4.64 Hgb 13.7 Hct 41.8 MCV 90.1 MCH 29.5 MCHC 32.7 RDW 15.2 Plt Count 352 D MPV 7.5 Sodium 130 L Potassium 4.3 Chloride 93 L Carbon Dioxide 31 Anion Gap 6 L BUN 9 Creatinine 0.8 Creat Clearance w eGFR > 60 POC Glucometer Random Glucose 125 H D Calcium 9.2 Total Bilirubin 0.8 AST 30 D ALT 29 D Alkaline Phosphatase 98 Total Protein 8.2 D Albumin 4.0 Urine Color Urine Appearance Urine pH Ur Specific [place] Urine Protein Urine Glucose (UA) Urine Ketones Urine Blood Urine Nitrite Urine Bilirubin Urine Urobilinogen Ur Leukocyte Esterase RPR Titer Nonreactive LABS NOTED. Assessment: 05/04/17 12:31 WITHDRAWAL SYMPTOMS. Plan: CONTINUE DETOX.
--- NOTE | 2017-05-04 14:19 | CONSULT ---
[facility] Psychiatric Consult - Data Date of interview: 05/04/17 Admission source: [facility] Identifying data: Approached at bedside for psychiatric interview.Patient declines.
[2017-05-04] MEDS: THIAMINE HCL 100 MG TABLET (FP) PO SCH (22:27)
[2017-05-04] MEDS: GABAPENTIN 100 MG CAPSULE (FP) PO SCH (22:27)
[2017-05-04] MEDS: MINERAL OIL/PETROLAT/WATER TOPICAL CREAM 113 GM JAR TP SCH (22:28)
[2017-05-05] MEDS: chlordiazePOXIDE HCL 25 MG CAPSULE PO SCH ×3 (05:38→17:37)
[2017-05-05] MEDS: NICOTINE POLACRILEX 2 MG GUM BUC PRN ×3 (05:41→22:19)
[2017-05-05] MEDS: metFORMIN HCL 500 MG TABLET (FP) PO SCH ×2 (08:01→17:37)
[2017-05-05] MEDS: TAMSULOSIN HCL 0.4 MG CAP.ER.24H (FP) PO SCH (09:47)
[2017-05-05] MEDS: amLODIPine BESYLATE 10 MG TABLET (FP) PO SCH (10:42)
[2017-05-05] MEDS: GABAPENTIN 100 MG CAPSULE (FP) PO SCH ×2 (10:42→22:14)
[2017-05-05] MEDS: RANITIDINE HCL 150 MG TABLET (FP) PO SCH ×2 (10:42→22:15)
[2017-05-05] MEDS: PRENATAL VITAMINS W/ FOLIC ACID TABLET (FP) PO SCH (10:42)
[2017-05-05] MEDS: NAPROXEN 500 MG TABLET (FP) PO SCH ×2 (10:42→22:14)
[2017-05-05] MEDS: FLUTICASONE PROP 0.05% 16 GM NASAL SPRAY NS SCH (10:42)
[2017-05-05] MEDS: NICOTINE 14 MG/24 HOURS TOPICAL PATCH TD SCH (10:43)
--- NOTE | 2017-05-05 11:53 | CONSULT ---
[facility] Psychiatric Consult - Data Date of interview: 05/05/17 Admission source: [facility] Identifying data: Readmission to [facility] for this 56 y/o AA male seeking detox treatment on for alcohol dependence.Patient is single without children,homeless,unemployed and supported on SSI benefits. Substance Abuse History: Discussed with patient.Confirmed. Smoking Cessation. Smoking history: Current every day smoker. Have you smoked in the past 12 months: Yes. Aproximately how many cigarettes per day: 7. Cigars Per Day: 0. Hx Chewing Tobacco Use: No. Initiated information on smoking cessation: Yes. ' Breaking Loose' booklet given: 05/03/17. - Substance & Tx. History. Hx Alcohol Use: Yes. Hx Substance Use: No. Substance Use Type: Alcohol. Hx Substance Use Treatment: Yes (03/13-03/17/17 [facility]). - Substances Abused. * * Alcohol-beer. Route: Oral. Frequency: Daily. Amount used: 7-8 (25 oz.) beer. Age of first use: 12. Date of Last Use: 05/02/17 Medical History: Significant for a history of eye surgery (detached retina in left eye),hypertension,bronchial asthma,GERD,BPH (benign prostatic hyperplasia), arthritis (walks with cane),diabetes mellitus,peripheral neuropathy and past treatment for syphilis. Psychiatric History: Diagnosed with Paranoid Schizophrenia.History of multiple psychiatric hospitalizations.Known to several facilities : [facility], [facility] and [facility].Still affiliated with [facility] the [place].Prescribed prolixin 10 mg/hs + cogentin 1 mg/hs (self- report).Mr East reports non-adherence to this regimen for weeks.Denies history of suicide attempts. Physical/Sexual Abuse/Trauma History: Patient denies. Mental Status Exam - Mental Status Exam Alert and Oriented to: Time, Place, Person Cognitive Function: Grossly Intact Patient Appearance: Unkempt, Disheveled Mood: Nervous, Apprehensive Affect: Mood Congruent Patient Behavior: Fatigued, Cooperative Speech Pattern: Clear (slow) Voice Loudness: Normal Thought Process: Goal Oriented Thought Disorder: Not Present Hallucinations: Denies Suicidal Ideation: Denies Homicidal Ideation: Denies Insight/Judgement: Poor Sleep: Well Appetite: Good Gait/Station: Other (walks with a cane) Psychiatric Findings - Problem List ([place] 1, 2,3) (1) Paranoid schizophrenia Current Visit: Yes Status: Chronic (2) Alcohol dependence with uncomplicated withdrawal Current Visit: Yes Status: Acute (3) Nicotine dependence Current Visit: Yes Status: Acute Qualifiers: Nicotine product type: cigarettes Substance use status: in withdrawal Qualified Code(s): F17.213 - Nicotine dependence, cigarettes, with withdrawal; F17.213 - Nicotine dependence, cigarettes, with withdrawal (4) Asthma Current Visit: Yes Status: Chronic Qualifiers: Asthma severity: mild Asthma persistence: intermittent Asthma complication type: with status asthmaticus Qualified Code(s): J45.22 - Mild intermittent asthma with status asthmaticus; J45.22 - Mild intermittent asthma with status asthmaticus; J45.22 - Mild intermittent asthma with status asthmaticus Comment: VENTOLIN+NEBULIZER+PREDNISON+AZITHROMYCIN (5) BPH (benign prostatic hyperplasia) Current Visit: Yes Status: Chronic Comment: TAMSULOSIN 0.4 MG EXTEND (6) Essential hypertension Current Visit: Yes Status: Chronic Comment: AMLODIPINE CLONIDIN PRN (7) GERD (gastroesophageal reflux disease) Current Visit: Yes Status: Chronic Qualifiers: Esophagitis presence: without esophagitis Qualified Code(s): K21.9 - Gastro-esophageal reflux disease without esophagitis; K21.9 - Gastro- esophageal reflux disease without esophagitis; K21.9 - Gastro-esophageal reflux disease without esophagitis Comment: ZANTAC (8) Neuropathy Current Visit: Yes Status: Chronic Comment: NEURONTIN 100 MG TID (9) Arthritis Current Visit: Yes Status: Chronic (10) Diabetes mellitus Current Visit: Yes Status: Chronic Qualifiers: Diabetes mellitus type: other specified (including LUIS MANUEL) Diabetes mellitus complication status: without complication 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 mellitus extermination inspector insulin use: unspecified retirement insulin use status Qualified Code (s): E13.9 - Other specified diabetes mellitus without complications; E13.9 - Other specified diabetes mellitus without complications; E13.9 - Other specified diabetes mellitus without complications; E13.9 - Other specified diabetes mellitus without complications; Z79.4 - MCC (current) use of insulin; Z79.4 - MCC (current) use of insulin; Z79.4 - MCC (current ) use of insulin; Z79.4 - MCC (current) use of insulin (11) Use of cane as ambulatory aid Current Visit: Yes Status: Chronic - Initial Treatment Plan Initial Treatment Plan: Psychoeducation.Detoxification.Medications : prolixin 5 mg po hs + cogentin 1 mg po hs (patient's request).Side effects/benefits of both drugs are discussed with the patient.Agrees with this careplan.Observation.
[2017-05-05] MEDS: ALBUTEROL SO4 18 GM HFA INHALER IH PRN (13:20)
--- NOTE | 2017-05-05 15:49 | PN ---
[facility] CIWA - CIWA Score Nausea/Vomitin-No Nausea/No Vomiting Muscle Tremors: 3 Anxiety: 4-Mod. Anxious/Guarded Agitation: 4-Moderately Restless Paroxysmal Sweats: 3 Orientation: 0-Oriented Tacttile Disturbances: 2-Mild Itch/Numbness/Burn Auditory Disturbances: 0-None Visual Disturbances: 0-None Headache: 0-None Present CIWA-Ar Total Score: 16 BHS Progress Note (SOAP) Subjective: Anxious, Tremors, Sweating, Body Aches. Objective: PT. A & O X 3, OBSERVED AMBULATING ON UNIT WITH ASSISTANCE OF A CANE. NO ACUTE DISTRESS. PT. DENIES CHEST PAIN. 05/05/17 15:47 Vital Signs Temperature 98.6 F 05/05/17 13:33 Pulse Rate 87 05/05/17 13:33 Respiratory Rate 18 05/05/17 13:33 Blood Pressure 146/83 05/05/17 13:33 O2 Sat by Pulse Oximetry (%) Laboratory Tests 05/03/17 05/03/17 05/04/17 13:45 20:41 06:09 WBC RBC Hgb Hct MCV MCH MCHC RDW Plt Count MPV Sodium Potassium Chloride Carbon Dioxide Anion Gap BUN Creatinine Creat Clearance w eGFR POC Glucometer 110 99 Random Glucose Calcium Total Bilirubin AST ALT Alkaline Phosphatase Total Protein Albumin Urine Color Straw Urine Appearance Clear Urine pH 6.0 Ur Specific [place] 1.010 Urine Protein Negative Urine Glucose (UA) Negative Urine Ketones Negative Urine Blood Negative Urine Nitrite Negative Urine Bilirubin Negative Urine Urobilinogen Negative Ur Leukocyte Esterase Negative RPR Titer 05/04/17 05/04/17 05/04/17 07:00 07:00 07:00 WBC 5.1 RBC 4.64 Hgb 13.7 Hct 41.8 MCV 90.1 MCH 29.5 MCHC 32.7 RDW 15.2 Plt Count 352 D MPV 7.5 Sodium 130 L Potassium 4.3 Chloride 93 L Carbon Dioxide 31 Anion Gap 6 L BUN 9 Creatinine 0.8 Creat Clearance w eGFR > 60 POC Glucometer Random Glucose 125 H D Calcium 9.2 Total Bilirubin 0.8 AST 30 D ALT 29 D Alkaline Phosphatase 98 Total Protein 8.2 D Albumin 4.0 Urine Color Urine Appearance Urine pH Ur Specific [place] Urine Protein Urine Glucose (UA) Urine Ketones Urine Blood Urine Nitrite Urine Bilirubin Urine Urobilinogen Ur Leukocyte Esterase RPR Titer Nonreactive 05/04/17 05/05/17 16:15 05:37 WBC RBC Hgb Hct MCV MCH MCHC RDW Plt Count MPV Sodium Potassium Chloride Carbon Dioxide Anion Gap BUN Creatinine Creat Clearance w eGFR POC Glucometer 108 110 Random Glucose Calcium Total Bilirubin AST ALT Alkaline Phosphatase Total Protein Albumin Urine Color Urine Appearance Urine pH Ur Specific [place] Urine Protein Urine Glucose (UA) Urine Ketones Urine Blood Urine Nitrite Urine Bilirubin Urine Urobilinogen Ur Leukocyte Esterase RPR Titer LABS NOTED. Assessment: 05/05/17 15:48 WITHDRAWAL SYMPTOMS. Plan: CONTINUE DETOX.
[2017-05-05] MEDS: BENZTROPINE MESYLATE 1 MG TABLET (FP) PO SCH (22:14)
[2017-05-05] MEDS: THIAMINE HCL 100 MG TABLET (FP) PO SCH (22:14)
[2017-05-05] MEDS: chlordiazePOXIDE 5 MG CAPSULE PO SCH (22:15)
[2017-05-05] MEDS: MINERAL OIL/PETROLAT/WATER TOPICAL CREAM 113 GM JAR TP SCH (22:15)
[2017-05-06] MEDS: chlordiazePOXIDE 5 MG CAPSULE PO SCH ×3 (05:50→17:35)
[2017-05-06] MEDS: metFORMIN HCL 500 MG TABLET (FP) PO SCH ×2 (07:17→17:35)
[2017-05-06] MEDS ORDERED: ALBUTEROL SO4 2.5/IPRATROPIUM 0.5 INH SOL 3 ML VIAL.NEB. NEB ONE (08:51)
[2017-05-06] MEDS ORDERED: ALBUTEROL SO4 2.5/IPRATROPIUM 0.5 INH SOL 3 ML VIAL.NEB. NEB PRN (08:53)
[2017-05-06] MEDS: GABAPENTIN 100 MG CAPSULE (FP) PO SCH ×2 (10:54→22:17)
[2017-05-06] MEDS: TAMSULOSIN HCL 0.4 MG CAP.ER.24H (FP) PO SCH (10:54)
[2017-05-06] MEDS: FLUTICASONE PROP 0.05% 16 GM NASAL SPRAY NS SCH (10:54)
[2017-05-06] MEDS: NAPROXEN 500 MG TABLET (FP) PO SCH ×2 (10:54→22:17)
[2017-05-06] MEDS: NICOTINE 14 MG/24 HOURS TOPICAL PATCH TD SCH (10:55)
[2017-05-06] MEDS: amLODIPine BESYLATE 10 MG TABLET (FP) PO SCH (10:55)
[2017-05-06] MEDS: PRENATAL VITAMINS W/ FOLIC ACID TABLET (FP) PO SCH (10:55)
[2017-05-06] MEDS: BUDESONIDE/FORMETEROL FUMARATE 80/4.5 mcg INHALER IH SCH ×2 (10:55→22:18)
[2017-05-06] MEDS: RANITIDINE HCL 150 MG TABLET (FP) PO SCH ×2 (10:55→22:17)
[2017-05-06] MEDS ORDERED: ALBUTEROL SO4 2.5/IPRATROPIUM 0.5 INH SOL 3 ML VIAL.NEB. NEB SCH (12:00)
--- NOTE | 2017-05-06 12:18 | PN ---
BHS Progress Note (SOAP) Subjective: ANXIETY,IRRITABILITY,C/O SOB AND DIFFICULTY BREATHING. PT EATING LAYING DOWN WITH BREAKFAST TRAY ON STOMACH. Objective: 05/06/17 12:14 Vital Signs Temperature 97.4 F L 05/06/17 09:56 Pulse Rate 88 05/06/17 09:56 Respiratory Rate 20 05/06/17 09:56 Blood Pressure 120/77 05/06/17 09:56 O2 Sat by Pulse Oximetry (%) 99 Laboratory Last Values WBC 5.1 K/mm3 (4.0-10.0) 05/04/17 07:00 RBC 4.64 M/mm3 (4.00-5.60) 05/04/17 07:00 Hgb 13.7 GM/dL (11.7-16.9) 05/04/17 07:00 Hct 41.8 % (35.4-49) 05/04/17 07:00 MCV 90.1 fl (80-96) 05/04/17 07:00 MCH 29.5 pg (25.7-33.7) 05/04/17 07:00 MCHC 32.7 g/dl (32.0-35.9) 05/04/17 07:00 RDW 15.2 % (11.9-15.9) 05/04/17 07:00 Plt Count 352 K/MM3 (134-434) D 05/04/17 07:00 MPV 7.5 fl (7.5-11.1) 05/04/17 07:00 Sodium 130 mmol/L (136-145) L 05/04/17 07:00 Potassium 4.3 mmol/L (3.5-5.1) 05/04/17 07:00 Chloride 93 mmol/L (98-107) L 05/04/17 07:00 Carbon Dioxide 31 mmol/L (21-32) 05/04/17 07:00 Anion Gap 6 (8-16) L 05/04/17 07:00 BUN 9 mg/dL (7-18) 05/04/17 07:00 Creatinine 0.8 mg/dL (0.7-1.3) 05/04/17 07:00 Creat Clearance w eGFR > 60 (>60) 05/04/17 07:00 POC Glucometer 91 UNITS (()) 05/06/17 05:48 Random Glucose 125 mg/dL (74-106) H D 05/04/17 07:00 Calcium 9.2 mg/dL (8.5-10.1) 05/04/17 07:00 Total Bilirubin 0.8 mg/dL (0.2-1.0) 05/04/17 07:00 AST 30 U/L (15-37) D 05/04/17 07:00 ALT 29 U/L (12-78) D 05/04/17 07:00 Alkaline Phosphatase 98 U/L (45-117) 05/04/17 07:00 Total Protein 8.2 g/dl (6.4-8.2) D 05/04/17 07:00 Albumin 4.0 g/dl (3.4-5.0) 05/04/17 07:00 Urine Color Straw 05/03/17 20:41 Urine Appearance Clear 05/03/17 20:41 Urine pH 6.0 (5.0-8.0) 05/03/17 20:41 Ur Specific [place] 1.010 (1.005-1.025) 05/03/17 20:41 Urine Protein Negative (NEGATIVE) 05/03/17 20:41 Urine Glucose (UA) Negative (NEGATIVE) 05/03/17 20:41 Urine Ketones Negative (NEGATIVE) 05/03/17 20:41 Urine Blood Negative (NEGATIVE) 05/03/17 20:41 Urine Nitrite Negative (NEGATIVE) 05/03/17 20:41 Urine Bilirubin Negative (NEGATIVE) 05/03/17 20:41 Urine Urobilinogen Negative mg/dL (0.2-1.0) 05/03/17 20:41 Ur Leukocyte Esterase Negative (NEGATIVE) 05/03/17 20:41 RPR Titer Nonreactive (NONREACTIVE) 05/04/17 07:00 LUNGS:BILATERAL MODERATE WHEEZE ALL JAUREGUI, PRE TREATMENT LUNGS:CLEAR TO A/P ALL JAUREGUI, BILATERALLY POST NEBULIZER [place] Assessment: 05/06/17 12:15 WITHDRAWAL SX ASTHMA EXACERBATION Plan: CONTINUE DETOX DUONEB NEBULIZER TXs DIRECTED SYMBICORT INHALER BID DIRECTED. MONITOR PT. FOOD TRAY PLACED ON BEDSIDE TRAY OVER PT'S BED AND PT PROPPED IN BED TO COMFORT POSITION WHILE EATING IN BED.
[2017-05-06] MEDS: ACETAMINOPHEN 325 MG TABLET (FP) PO PRN (18:44)
[2017-05-06] MEDS: BENZTROPINE MESYLATE 1 MG TABLET (FP) PO SCH (22:17)
[2017-05-06] MEDS: THIAMINE HCL 100 MG TABLET (FP) PO SCH (22:17)
[2017-05-06] MEDS: chlordiazePOXIDE HCL 10 MG CAPSULE PO SCH (22:17)
[2017-05-06] MEDS: NICOTINE POLACRILEX 2 MG GUM BUC PRN (22:21)
[2017-05-06] MEDS: MINERAL OIL/PETROLAT/WATER TOPICAL CREAM 113 GM JAR TP SCH (22:21)
[2017-05-07] MEDS: chlordiazePOXIDE HCL 10 MG CAPSULE PO SCH (05:33)
[2017-05-07] MEDS: metFORMIN HCL 500 MG TABLET (FP) PO SCH (06:59)
[2017-05-07] MEDS: NICOTINE POLACRILEX 2 MG GUM BUC PRN (07:24)
[2017-05-07] MEDS: PRENATAL VITAMINS W/ FOLIC ACID TABLET (FP) PO SCH (09:08)
[2017-05-07] MEDS: BUDESONIDE/FORMETEROL FUMARATE 80/4.5 mcg INHALER IH SCH (09:08)
[2017-05-07] MEDS: FLUTICASONE PROP 0.05% 16 GM NASAL SPRAY NS SCH (09:09)
[2017-05-07] MEDS: amLODIPine BESYLATE 10 MG TABLET (FP) PO SCH (09:11)
[2017-05-07] MEDS: NAPROXEN 500 MG TABLET (FP) PO SCH (09:11)
[2017-05-07] MEDS: RANITIDINE HCL 150 MG TABLET (FP) PO SCH (09:11)
[2017-05-07] MEDS: TAMSULOSIN HCL 0.4 MG CAP.ER.24H (FP) PO SCH (09:12)
[2017-05-07] MEDS: GABAPENTIN 100 MG CAPSULE (FP) PO SCH (09:14)
[2017-05-07] MEDS: NICOTINE 14 MG/24 HOURS TOPICAL PATCH TD SCH (09:14)
[2017-05-07 09:46] VITALS: BP 121/71; PULSE 84; TEMP 96.4
--- NOTE | 2017-05-07 13:55 | DS ---
[facility] Detox Discharge Summary Admission Date: 05/03/17 Discharge Date: 05/07/17 - History Present History: Alcohol Dependence Additional Comments: PATIENT RETURNING TO [employer] [facility] ([facility] [place] PATIENT ADVISED TO FOLLOW-UP WITH [employer] [facility] HOFF ([facility] [place] FOR MEDICAL AFTERCARE ASSESSMENT. PATIENT ALSO ADVISED TO CONSIDER LOCAL OUTPATIENT 12-STEP / AA SUPPORT GROUPS FOR AFTERCARE. PATIENT WAS DISCHARGED FROM DETOX UNIT IN STABLE MEDICAL CONDITION. Pertinent Past History: Acid Reflux, NIDDM, HTN, Neuropathy, Schizophrenia (Paranoid), Use of a Cane as Ambulatory Aid, Asthma, Arthritis, BPH. - Physical Exam Results Vital Signs: Vital Signs Temperature 96.4 F L 05/07/17 09:45 Pulse Rate 84 05/07/17 09:45 Respiratory Rate 20 05/07/17 09:45 Blood Pressure 121/71 05/07/17 09:45 O2 Sat by Pulse Oximetry (%) Pertinent Admission Physical Exam Findings: WITHDRAWAL SYMPTOMS. Laboratory Tests 05/03/17 05/03/17 05/04/17 13:45 20:41 06:09 WBC RBC Hgb Hct MCV MCH MCHC RDW Plt Count MPV Sodium Potassium Chloride Carbon Dioxide Anion Gap BUN Creatinine Creat Clearance w eGFR POC Glucometer 110 99 Random Glucose Calcium Total Bilirubin AST ALT Alkaline Phosphatase Total Protein Albumin Urine Color Straw Urine Appearance Clear Urine pH 6.0 Ur Specific [place] 1.010 Urine Protein Negative Urine Glucose (UA) Negative Urine Ketones Negative Urine Blood Negative Urine Nitrite Negative Urine Bilirubin Negative Urine Urobilinogen Negative Ur Leukocyte Esterase Negative RPR Titer 05/04/17 05/04/17 05/04/17 07:00 07:00 07:00 WBC 5.1 RBC 4.64 Hgb 13.7 Hct 41.8 MCV 90.1 MCH 29.5 MCHC 32.7 RDW 15.2 Plt Count 352 D MPV 7.5 Sodium 130 L Potassium 4.3 Chloride 93 L Carbon Dioxide 31 Anion Gap 6 L BUN 9 Creatinine 0.8 Creat Clearance w eGFR > 60 POC Glucometer Random Glucose 125 H D Calcium 9.2 Total Bilirubin 0.8 AST 30 D ALT 29 D Alkaline Phosphatase 98 Total Protein 8.2 D Albumin 4.0 Urine Color Urine Appearance Urine pH Ur Specific [place] Urine Protein Urine Glucose (UA) Urine Ketones Urine Blood Urine Nitrite Urine Bilirubin Urine Urobilinogen Ur Leukocyte Esterase RPR Titer Nonreactive 05/04/17 05/05/17 05/05/17 16:15 05:37 16:21 WBC RBC Hgb Hct MCV MCH MCHC RDW Plt Count MPV Sodium Potassium Chloride Carbon Dioxide Anion Gap BUN Creatinine Creat Clearance w eGFR POC Glucometer 108 110 104 Random Glucose Calcium Total Bilirubin AST ALT Alkaline Phosphatase Total Protein Albumin Urine Color Urine Appearance Urine pH Ur Specific [place] Urine Protein Urine Glucose (UA) Urine Ketones Urine Blood Urine Nitrite Urine Bilirubin Urine Urobilinogen Ur Leukocyte Esterase RPR Titer 05/06/17 05/06/17 05/07/17 05:48 16:16 05:32 WBC RBC Hgb Hct MCV MCH MCHC RDW Plt Count MPV Sodium Potassium Chloride Carbon Dioxide Anion Gap BUN Creatinine Creat Clearance w eGFR POC Glucometer 91 116 100 Random Glucose Calcium Total Bilirubin AST ALT Alkaline Phosphatase Total Protein Albumin Urine Color Urine Appearance Urine pH Ur Specific [place] Urine Protein Urine Glucose (UA) Urine Ketones Urine Blood Urine Nitrite Urine Bilirubin Urine Urobilinogen Ur Leukocyte Esterase RPR Titer LABS NOTED. - Treatment Hospital Course: Detox Protocol Followed, Detoxed Safely, Responded well, Discharged Condition Good Patient has Accepted a Rehab Referral to: NO. PT ADVISED TO CONSIDER LOCAL 12- STEP/AA SUPPORT GROUPS FOR AFTERCARE. - Medication Discharge Medications: Ambulatory Orders Ranitidine [Zantac -] 150 mg PO BID #60 tablet 07/25/16 Tamsulosin HCl [Flomax -] 0.4 mg PO DAILY@0830 #30 cap.er.24h 07/25/16 Benztropine Mesylate [Cogentin -] 1 mg PO BID 05/03/17 Fluphenazine HCl [Prolixin -] 10 mg PO BID 05/03/17 Benztropine Mesylate [Cogentin -] 1 mg PO HS #30 tablet 05/05/17 Fluphenazine HCl [Prolixin -] 5 mg PO HS #30 tablet 05/05/17 Albuterol Sulfate Inhaler - [Ventolin Hfa Inhaler -] 2 inh PO Q4H PRN #1 inhaler 05/07/17 Amlodipine Besylate [Norvasc -] 5 mg PO BID #30 mg 05/07/17 Fluticasone Prop 0.05% Nasal [Flonase -] 1 spray NS DAILY #1 bot 05/07/17 Metformin HCl [Glucophage -] 500 mg PO BID #60 mg 05/07/17 - Diagnosis (1) Alcohol dependence with uncomplicated withdrawal Status: Acute (2) Nicotine dependence Status: Chronic Qualifiers: Nicotine product type: cigarettes Substance use status: in withdrawal Qualified Code(s): F17.213 - Nicotine dependence, cigarettes, with withdrawal; F17.213 - Nicotine dependence, cigarettes, with withdrawal (3) Arthritis Status: Chronic (4) Asthma Status: Chronic Qualifiers: Asthma severity: mild Asthma persistence: intermittent Asthma complication type: with status asthmaticus Qualified Code(s): J45.22 - Mild intermittent asthma with status asthmaticus; J45.22 - Mild intermittent asthma with status asthmaticus; J45.22 - Mild intermittent asthma with status asthmaticus (5) BPH (benign prostatic hyperplasia) Status: Chronic (6) Diabetes mellitus Status: Chronic Qualifiers: Diabetes mellitus type: other specified (including LUIS MANUEL) Diabetes mellitus complication status: without complication Diabetes mellitus [facility] insulin use: unspecified intermediate designer insulin use status Qualified Code (s): E13.9 - Other specified diabetes mellitus without complications; E13.9 - Other specified diabetes mellitus without complications; E13.9 - Other specified diabetes mellitus without complications; E13.9 - Other specified diabetes mellitus without complications; Z79.4 - jail (current) use of insulin; Z79.4 - terminal makeup operator (current) use of insulin; Z79.4 - jail (current ) use of insulin; Z79.4 - terminal makeup operator (current) use of insulin (7) Essential hypertension Status: Chronic (8) GERD (gastroesophageal reflux disease) Status: Chronic Qualifiers: Esophagitis presence: without esophagitis Qualified Code(s): K21.9 - Gastro-esophageal reflux disease without esophagitis; K21.9 - Gastro- esophageal reflux disease without esophagitis; K21.9 - Gastro-esophageal reflux disease without esophagitis (9) Insomnia Status: Chronic Qualifiers: Insomnia type: unspecified Qualified Code(s): G47.00 - Insomnia, unspecified; G47.00 - Insomnia, unspecified (10) Neuropathy Status: Chronic (11) Paranoid schizophrenia Status: Chronic (12) Use of cane as ambulatory aid Status: Chronic - AMA Did Patient Leave Against Medical Advice: No
== END 2017-05-07 09:47 | disposition home or self-care (01) | DRG 775 ==
LOC: YASAS 09:44 → Y3N 19:01
PROVIDERS: ADMIT Internal Medicine; ATTEND Internal Medicine
PROC: HZ2ZZZZ Detoxification Services for Substance Abuse Treatment (ICD-10-PCS; principal; 2017-05-03)
DX: F10.230 Alcohol dependence with withdrawal, uncomplicated (principal); F17.213 Nicotine dependence, cigarettes, with withdrawal; F20.0 Paranoid schizophrenia; G62.9 Polyneuropathy, unspecified; G47.00 Insomnia, unspecified; I10 Essential (primary) hypertension; E13.9 Other specified diabetes mellitus without complications; Z79.4 Long term (current) use of insulin; K21.9 Gastro-esophageal reflux disease without esophagitis; N40.0 Benign prostatic hyperplasia without lower urinary tract symptoms; R26.89 Other abnormalities of gait and mobility; Z99.89 Dependence on other enabling machines and devices
CPT/HCPCS: 36415; 80053; 81003; 85027; 86593; 93005; 93010; 94640

== ENCOUNTER 2017-06-06 19:46 | Inpatient (IN) | payer OTHER ==
[2017-06-06 20:58] VITALS: BMI 30.4
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
[2017-06-06] MEDS ORDERED: IBUPROFEN 400 MG TABLET (FP) PO PRN (21:33)
[2017-06-06] MEDS ORDERED: LOPERAMIDE HCL 2 MG CAPSULE PO PRN (21:33)
[2017-06-06] MEDS ORDERED: chlordiazePOXIDE HCL 25 MG CAPSULE PO ONE (21:33)
[2017-06-06] MEDS ORDERED: MAGNESIUM HYDROX 2400MG/30ML ORAL SUSPENSION 30 ML CUP PO PRN (21:33)
[2017-06-06] MEDS ORDERED: MAG HYDROX/AL HYDROX/SIMETH 30 ML UNIT-DOSE CUP PO PRN (21:33)
[2017-06-06] MEDS ORDERED: chlordiazePOXIDE HCL 25 MG CAPSULE PO PRN (21:33)
[2017-06-06] MEDS ORDERED: MAGNESIUM CITRATE 300 ML BOTTLE PO PRN (21:33)
[2017-06-07] MEDS: amLODIPine BESYLATE 5 MG TABLET (FP) PO SCH ×3 (00:40→22:25)
[2017-06-07] MEDS: chlordiazePOXIDE HCL 25 MG CAPSULE PO SCH ×5 (00:40→22:25)
[2017-06-07] MEDS: THIAMINE HCL 100 MG TABLET (FP) PO SCH ×2 (00:41→22:25)
[2017-06-07] MEDS: RANITIDINE HCL 150 MG TABLET (FP) PO SCH ×3 (00:41→22:25)
[2017-06-07] MEDS: ACETAMINOPHEN 325 MG TABLET (FP) PO PRN ×2 (00:41→08:51)
[2017-06-07] MEDS: metFORMIN HCL 500 MG TABLET (FP) PO SCH ×2 (07:00→17:24)
[2017-06-07] MEDS: TAMSULOSIN HCL 0.4 MG CAP.ER.24H (FP) PO SCH (08:51)
[2017-06-07 10:27] LABS: MCH 28.9 pg (25.7-33.7); MCHC 32.8 g/dl (32.0-35.9); PLATELET COUNT 303 K/MM3 (134-434); RDW 14.5 % (11.9-15.9); WHITE BLOOD COUNT 5.4 K/mm3 (4.0-10.0)
--- NOTE | 2017-06-07 10:45 | PN ---
S CIWA - CIWA Score Nausea/Vomitin Muscle Tremors: 3 Anxiety: 3 Agitation: 2 Paroxysmal Sweats: 1-Minimal Palms Moist Orientation: 0-Oriented Tacttile Disturbances: 1-Very Mild Itch/Numbness Auditory Disturbances: 1-Very Mild Visual Disturbances: 0-None Headache: 2-Mild CIWA-Ar Total Score: 16 BHS Progress Note (SOAP) Subjective: ALERT,IRRITABLE,ANXIOUS,INTERRUPTED SLEEP,TREMOR Objective: 06/07/17 10:42 Vital Signs Temperature 97.9 F 06/07/17 10:32 Pulse Rate 93 H 06/07/17 10:32 Respiratory Rate 18 06/07/17 10:32 Blood Pressure 153/85 06/07/17 10:32 O2 Sat by Pulse Oximetry (%) EKG NSR,WITH PAC 06/07/17 10:43 NO CHEST PAIN,NO SOB,NO DIZZINESS LABS Laboratory Last Values WBC 5.4 K/mm3 (4.0-10.0) 06/07/17 08:15 RBC 4.81 M/mm3 (4.00-5.60) 06/07/17 08:15 Hgb 13.9 GM/dL (11.7-16.9) 06/07/17 08:15 Hct 42.3 % (35.4-49) 06/07/17 08:15 MCV 88.0 fl (80-96) 06/07/17 08:15 MCH 28.9 pg (25.7-33.7) 06/07/17 08:15 MCHC 32.8 g/dl (32.0-35.9) 06/07/17 08:15 RDW 14.5 % (11.9-15.9) 06/07/17 08:15 Plt Count 303 K/MM3 (134-434) 06/07/17 08:15 MPV 7.0 fl (7.5-11.1) L 06/07/17 08:15 POC Glucometer 100 UNITS (80-120) 06/07/17 06:30 LABS PENDING Assessment: 06/07/17 10:44 WITHDRAWAL SYMPTOM Plan: CONTINUE DETOX
[2017-06-07 10:53] LABS: ALBUMIN 3.9 g/dl (3.4-5.0); ANION GAP 7 (8-16); CO2 29 mmol/L (21-32); CREATININE 0.7 mg/dL (0.7-1.3); GLUCOSE,RANDOM 84 mg/dL (74-106); SGOT/AST 27 U/L (15-37); SGPT/ALT 33 U/L (12-78)
[2017-06-07 10:55] LABS: ALK PHOS 112 U/L (45-117); BILIRUBIN,TOTAL 0.9 mg/dL (0.2-1.0); TOT PROT 8.1 g/dl (6.4-8.2)
[2017-06-07] MEDS: GABAPENTIN 100 MG CAPSULE (FP) PO SCH ×2 (11:02→22:25)
[2017-06-07] MEDS: NAPROXEN 500 MG TABLET (FP) PO SCH ×2 (11:02→22:25)
[2017-06-07] MEDS: PRENATAL VITAMINS W/ FOLIC ACID TABLET (FP) PO SCH (11:03)
[2017-06-07] MEDS: FLUTICASONE PROP 0.05% 16 GM NASAL SPRAY NS SCH (11:03)
[2017-06-07] MEDS: ALBUTEROL SO4 18 GM HFA INHALER IH PRN (11:08)
[2017-06-07 11:28] LABS: HIV 1 & 2 AB NEGATIVE; HIV 1 AGp24 NEGATIVE
[2017-06-07] MEDS ORDERED: FLU VACCINE QUAD 60 MCG/0.5 ML (MDV 17-18) IM ONE (12:00)
--- NOTE | 2017-06-07 12:38 | EKG ---
Test Reason : Blood Pressure : / mmHG Vent. 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
[2017-06-08] MEDS: chlordiazePOXIDE HCL 25 MG CAPSULE PO SCH ×3 (05:31→17:48)
[2017-06-08] MEDS: guaiFENesin/D-METHORPHAN HB 10 ML UNIT-DOSE CUPS PO PRN (05:31)
[2017-06-08] MEDS: P-EPHED 60MG/TRIPROLIDI 2.5MG TABLET PO PRN (05:33)
[2017-06-08] MEDS: MENTHOL/PHENOL 1 EACH UD MM PRN ×2 (05:34→11:01)
[2017-06-08] MEDS: metFORMIN HCL 500 MG TABLET (FP) PO SCH ×2 (07:11→17:47)
[2017-06-08] MEDS: amLODIPine BESYLATE 5 MG TABLET (FP) PO SCH ×2 (10:46→22:38)
[2017-06-08] MEDS: RANITIDINE HCL 150 MG TABLET (FP) PO SCH ×2 (10:46→22:37)
[2017-06-08] MEDS: GABAPENTIN 100 MG CAPSULE (FP) PO SCH ×2 (10:46→22:37)
[2017-06-08] MEDS: PRENATAL VITAMINS W/ FOLIC ACID TABLET (FP) PO SCH (10:46)
[2017-06-08] MEDS: TAMSULOSIN HCL 0.4 MG CAP.ER.24H (FP) PO SCH (10:47)
[2017-06-08] MEDS: NAPROXEN 500 MG TABLET (FP) PO SCH ×2 (10:47→22:37)
[2017-06-08] MEDS: ALBUTEROL SO4 18 GM HFA INHALER IH PRN (10:49)
[2017-06-08] MEDS: FLUTICASONE PROP 0.05% 16 GM NASAL SPRAY NS SCH (10:50)
[2017-06-08] MEDS: NICOTINE POLACRILEX 2 MG GUM BUC PRN (11:20)
--- NOTE | 2017-06-08 11:34 | PN ---
S CIWA - CIWA Score Nausea/Vomitin Muscle Tremors: 3 Anxiety: 3 Agitation: 2 Paroxysmal Sweats: 1-Minimal Palms Moist Orientation: 0-Oriented Tacttile Disturbances: 1-Very Mild Itch/Numbness Auditory Disturbances: 1-Very Mild Visual Disturbances: 0-None Headache: 2-Mild CIWA-Ar Total Score: 16 BHS Progress Note (SOAP) Subjective: alert,irritable,anxious,interrupted sleep,tremor Objective: 06/08/17 11:32 Vital Signs Temperature 98.2 F 06/08/17 10:21 Pulse Rate 94 H 06/08/17 10:21 Respiratory Rate 18 06/08/17 10:21 Blood Pressure 132/84 06/08/17 10:21 O2 Sat by Pulse Oximetry (%) Laboratory Last Values WBC 5.4 K/mm3 (4.0-10.0) 06/07/17 08:15 RBC 4.81 M/mm3 (4.00-5.60) 06/07/17 08:15 Hgb 13.9 GM/dL (11.7-16.9) 06/07/17 08:15 Hct 42.3 % (35.4-49) 06/07/17 08:15 MCV 88.0 fl (80-96) 06/07/17 08:15 MCH 28.9 pg (25.7-33.7) 06/07/17 08:15 MCHC 32.8 g/dl (32.0-35.9) 06/07/17 08:15 RDW 14.5 % (11.9-15.9) 06/07/17 08:15 Plt Count 303 K/MM3 (134-434) 06/07/17 08:15 MPV 7.0 fl (7.5-11.1) L 06/07/17 08:15 Sodium 129 mmol/L (136-145) L 06/07/17 08:15 Potassium 4.8 mmol/L (3.5-5.1) 06/07/17 08:15 Chloride 93 mmol/L (98-107) L 06/07/17 08:15 Carbon Dioxide 29 mmol/L (21-32) 06/07/17 08:15 Anion Gap 7 (8-16) L 06/07/17 08:15 BUN 8 mg/dL (7-18) 06/07/17 08:15 Creatinine 0.7 mg/dL (0.7-1.3) 06/07/17 08:15 Creat Clearance w eGFR > 60 (>60) 06/07/17 08:15 POC Glucometer 110 UNITS (80-120) 06/08/17 05:30 Random Glucose 84 mg/dL (74-106) D 06/07/17 08:15 Calcium 9.0 mg/dL (8.5-10.1) 06/07/17 08:15 Total Bilirubin 0.9 mg/dL (0.2-1.0) 06/07/17 08:15 AST 27 U/L (15-37) 06/07/17 08:15 ALT 33 U/L (12-78) 06/07/17 08:15 Alkaline Phosphatase 112 U/L (45-117) 06/07/17 08:15 Total Protein 8.1 g/dl (6.4-8.2) 06/07/17 08:15 Albumin 3.9 g/dl (3.4-5.0) 06/07/17 08:15 RPR Titer Nonreactive (NONREACTIVE) 06/07/17 08:15 HIV 1&2 Antibody Screen Negative 06/07/17 08:15 HIV P24 Antigen Negative 06/07/17 08:15 Assessment: 06/08/17 11:33 withdrawal symptom Plan: continue detox,bgm monitoring
[2017-06-08 14:32] LABS: URINE APPEARANCE CLEAR; URINE BILIRUBIN NEGATIVE (NEGATIVE); URINE BLOOD NEGATIVE (NEGATIVE); URINE COLOR STRAW; URINE GLUCOSE (UA) NEGATIVE (NEGATIVE); URINE KETONE NEGATIVE (NEGATIVE); URINE NITRITE NEGATIVE (NEGATIVE); URINE PROTEIN NEGATIVE (NEGATIVE); URINE UROBILINOGEN NEGATIVE mg/dL (0.2-1.0)
--- NOTE | 2017-06-08 18:29 | CONSULT ---
[facility] Psychiatric Consult - Data Date of interview: 06/08/17 Admission source: [facility] Identifying data: One of multiple admissions to [facility] for this 56 y/o AA male seeking detox treatment on for alcohol dependence.Patient is single without children,homeless (residential),unemployed and supported on SSI benefits. Substance Abuse History: Mr East admits to active use of alcohool.See [facility] report for details. Smoking history: Current every day smoker. Have you smoked in the past 12 months: Yes. Aproximately how many cigarettes per day: 7. Cigars Per Day: 0. Hx Chewing Tobacco Use: No. Initiated information on smoking cessation: Yes. 'Breaking Loose' booklet given: 06/06/17. - Substance & Tx. History. Hx Alcohol Use: Yes. Hx Substance Use: No. Substance Use Type : Alcohol. Hx Substance Use Treatment: Yes ([facility] 05/03/17 to 05/07/17). - Substances Abused. Alcohol. Route: Oral. Frequency: Daily. Amount used: 1pint of vodka/2 of 24 ozs of beer. Age of first use: 12. Date of Last Use: Medical History: History of GERD,eye surgery (detached retina in left eye), hypertension,bronchial asthma,GERD,BPH (benign prostatic hyperplasia),arthritis (walks with cane),diabetes mellitus,peripheral neuropathy and past treatment for syphilis + gonorrhea. Psychiatric History: Diagnosed with Paranoid Schizophrenia.History of multiple psychiatric hospitalizations.Mr East reports treatment at several facilities : [facility], [facility] and [facility].Patient denies having a regular site for [employer] care.It appears thar Mr East uses emergency room settings for reffills of medications.Prescribed prolixin 10 mg/ hs + cogentin 2 mg/hs (self-report).Mr East admits to non-adherence to this regimen for three weeks.Denies history of suicide attempts. Physical/Sexual Abuse/Trauma History: Patient denies. Additional Comment: Urine Drug Screen Results: BZO-Benzodiazepines.Noted. Mental Status Exam - Mental Status Exam Alert and Oriented to: Time, Place, Person Cognitive Function: Grossly Intact Patient Appearance: Unkempt, Disheveled Mood: Nervous, Withdrawn, Hopeful Patient Behavior: Fatigued, Appropriate, Cooperative Speech Pattern: Clear Voice Loudness: Normal Thought Process: Goal Oriented Thought Disorder: Not Present Hallucinations: Denies Suicidal Ideation: Denies Homicidal Ideation: Denies Insight/Judgement: Poor Sleep: Poorly, Difficulty falling asleep Appetite: Good Muscle strength/Tone: Normal Gait/Station: Other (walks with a cane) Psychiatric Findings - Problem List ([place] 1, 2,3) (1) Alcohol dependence with uncomplicated withdrawal Current Visit: Yes Status: Acute (2) Nicotine dependence Current Visit: Yes Status: Acute Qualifiers: Nicotine product type: cigarettes Substance use status: in withdrawal Qualified Code(s): F17.213 - Nicotine dependence, cigarettes, with withdrawal (3) Paranoid schizophrenia Current Visit: Yes Status: Chronic (4) Insomnia Current Visit: Yes Status: Acute Qualifiers: Insomnia type: unspecified Qualified Code(s): G47.00 - Insomnia, unspecified - Initial Treatment Plan Initial Treatment Plan: Psychoeducation.Detoxification.Medications : prolixin 10 mg po hs + cogentin 1 mg po bid.Side effects/benefits of both drugs are discussed with the patient.Mr East is in agreement with this careplan.Observation.
[2017-06-08 19:45] LABS: URINE LEUK ESTERASE 1+ (NEGATIVE)
[2017-06-08] MEDS: BENZTROPINE MESYLATE 1 MG TABLET (FP) PO SCH ×2 (21:39→22:38)
[2017-06-08] MEDS: chlordiazePOXIDE 5 MG CAPSULE PO SCH (22:37)
[2017-06-08] MEDS: THIAMINE HCL 100 MG TABLET (FP) PO SCH (22:38)
[2017-06-08 23:10] LABS: URINE RBC 0-3 /hpf (0-3)
[2017-06-09] MEDS: NICOTINE POLACRILEX 2 MG GUM BUC PRN ×3 (00:18→19:16)
[2017-06-09] MEDS: MENTHOL/PHENOL 1 EACH UD MM PRN ×3 (00:19→22:47)
[2017-06-09] MEDS: hydrOXYzine PAMOATE 25 MG CAPSULE (FP) PO PRN (03:51)
[2017-06-09] MEDS: chlordiazePOXIDE 5 MG CAPSULE PO SCH ×3 (05:08→16:47)
[2017-06-09] MEDS: metFORMIN HCL 500 MG TABLET (FP) PO SCH ×2 (06:41→16:47)
[2017-06-09] MEDS: GABAPENTIN 100 MG CAPSULE (FP) PO SCH ×2 (11:19→22:23)
[2017-06-09] MEDS: TAMSULOSIN HCL 0.4 MG CAP.ER.24H (FP) PO SCH (11:19)
[2017-06-09] MEDS: amLODIPine BESYLATE 5 MG TABLET (FP) PO SCH ×2 (11:19→22:23)
[2017-06-09] MEDS: NAPROXEN 500 MG TABLET (FP) PO SCH ×2 (11:19→22:23)
[2017-06-09] MEDS: RANITIDINE HCL 150 MG TABLET (FP) PO SCH ×2 (11:19→22:23)
[2017-06-09] MEDS: PRENATAL VITAMINS W/ FOLIC ACID TABLET (FP) PO SCH (11:19)
[2017-06-09] MEDS: FLUTICASONE PROP 0.05% 16 GM NASAL SPRAY NS SCH (11:20)
[2017-06-09] MEDS: BENZTROPINE MESYLATE 1 MG TABLET (FP) PO SCH ×2 (11:23→22:22)
--- NOTE | 2017-06-09 13:37 | PN ---
BHS Progress Note (SOAP) Subjective: Sweating,interrupted sleep,restless Objective: 06/09/17 13:36 Vital Signs - 8 hr 06/09/17 06:00 Temperature 97.3 F L Pulse Rate 89 Respiratory 18 Rate Blood Pressure 137/85 Laboratory Tests 06/06/17 06/07/17 06/07/17 23:03 06:30 08:15 WBC 5.4 RBC 4.81 Hgb 13.9 Hct 42.3 MCV 88.0 MCH 28.9 MCHC 32.8 RDW 14.5 Plt Count 303 MPV 7.0 L Sodium Potassium Chloride Carbon Dioxide Anion Gap BUN Creatinine Creat Clearance w eGFR POC Glucometer 103 100 Random Glucose Calcium Total Bilirubin AST ALT Alkaline Phosphatase Total Protein Albumin Urine Color Urine Appearance Urine pH Ur Specific [place] Urine Protein Urine Glucose (UA) Urine Ketones Urine Blood Urine Nitrite Urine Bilirubin Urine Urobilinogen Ur Leukocyte Esterase Urine RBC Urine WBC Ur Epithelial Cells Amorphous Phosphates RPR Titer HIV 1&2 Antibody Screen HIV P24 Antigen 06/07/17 06/07/17 06/07/17 08:15 08:15 08:15 WBC RBC Hgb Hct MCV MCH MCHC RDW Plt Count MPV Sodium 129 L Potassium 4.8 Chloride 93 L Carbon Dioxide 29 Anion Gap 7 L BUN 8 Creatinine 0.7 Creat Clearance w eGFR > 60 POC Glucometer Random Glucose 84 D Calcium 9.0 Total Bilirubin 0.9 AST 27 ALT 33 Alkaline Phosphatase 112 Total Protein 8.1 Albumin 3.9 Urine Color Urine Appearance Urine pH Ur Specific [place] Urine Protein Urine Glucose (UA) Urine Ketones Urine Blood Urine Nitrite Urine Bilirubin Urine Urobilinogen Ur Leukocyte Esterase Urine RBC Urine WBC Ur Epithelial Cells Amorphous Phosphates RPR Titer Nonreactive HIV 1&2 Antibody Screen Negative HIV P24 Antigen Negative 06/07/17 06/08/17 06/08/17 16:28 05:30 10:00 WBC RBC Hgb Hct MCV MCH MCHC RDW Plt Count MPV Sodium Potassium Chloride Carbon Dioxide Anion Gap BUN Creatinine Creat Clearance w eGFR POC Glucometer 112 110 Random Glucose Calcium Total Bilirubin AST ALT Alkaline Phosphatase Total Protein Albumin Urine Color Straw Urine Appearance Clear Urine pH 8.0 D Ur Specific [place] 1.003 Urine Protein Negative Urine Glucose (UA) Negative Urine Ketones Negative Urine Blood Negative Urine Nitrite Negative Urine Bilirubin Negative Urine Urobilinogen Negative Ur Leukocyte Esterase 1+ H Urine RBC 0-3 Urine WBC 3-5 Ur Epithelial Cells 0-3 Amorphous Phosphates Few RPR Titer HIV 1&2 Antibody Screen HIV P24 Antigen 06/08/17 06/09/17 16:23 05:05 WBC RBC Hgb Hct MCV MCH MCHC RDW Plt Count MPV Sodium Potassium Chloride Carbon Dioxide Anion Gap BUN Creatinine Creat Clearance w eGFR POC Glucometer 115 96 Random Glucose Calcium Total Bilirubin AST ALT Alkaline Phosphatase Total Protein Albumin Urine Color Urine Appearance Urine pH Ur Specific [place] Urine Protein Urine Glucose (UA) Urine Ketones Urine Blood Urine Nitrite Urine Bilirubin Urine Urobilinogen Ur Leukocyte Esterase Urine RBC Urine WBC Ur Epithelial Cells Amorphous Phosphates RPR Titer HIV 1&2 Antibody Screen HIV P24 Antigen labs noted Assessment: 06/09/17 13:37 Withdrawal sx. Plan: Continue detox
[2017-06-09] MEDS: guaiFENesin/D-METHORPHAN HB 10 ML UNIT-DOSE CUPS PO PRN (18:08)
[2017-06-09] MEDS: P-EPHED 60MG/TRIPROLIDI 2.5MG TABLET PO PRN (18:10)
[2017-06-09] MEDS: THIAMINE HCL 100 MG TABLET (FP) PO SCH (22:22)
[2017-06-09] MEDS: chlordiazePOXIDE HCL 10 MG CAPSULE PO SCH (22:22)
[2017-06-10] MEDS: hydrOXYzine PAMOATE 25 MG CAPSULE (FP) PO PRN (03:17)
[2017-06-10] MEDS: chlordiazePOXIDE HCL 10 MG CAPSULE PO SCH (05:23)
[2017-06-10] MEDS: metFORMIN HCL 500 MG TABLET (FP) PO SCH (07:34)
[2017-06-10] MEDS: TAMSULOSIN HCL 0.4 MG CAP.ER.24H (FP) PO SCH (07:34)
[2017-06-10] MEDS: FLUTICASONE PROP 0.05% 16 GM NASAL SPRAY NS SCH (09:00)
--- NOTE | 2017-06-10 09:16 | DS ---
[facility] Detox Discharge Summary Admission Date: 06/06/17 Discharge Date: 06/10/17 - History Present History: Alcohol Dependence Pertinent Past History: Asthma BPH HTN GERD - Physical Exam Results Vital Signs: Vital Signs Temperature 97.0 F L 06/10/17 06:00 Pulse Rate 81 06/10/17 06:00 Respiratory Rate 18 06/10/17 06:00 Blood Pressure 139/87 06/10/17 06:00 O2 Sat by Pulse Oximetry (%) Pertinent Admission Physical Exam Findings: Withdrawal sx. Laboratory Last Values WBC 5.4 K/mm3 (4.0-10.0) 06/07/17 08:15 RBC 4.81 M/mm3 (4.00-5.60) 06/07/17 08:15 Hgb 13.9 GM/dL (11.7-16.9) 06/07/17 08:15 Hct 42.3 % (35.4-49) 06/07/17 08:15 MCV 88.0 fl (80-96) 06/07/17 08:15 MCH 28.9 pg (25.7-33.7) 06/07/17 08:15 MCHC 32.8 g/dl (32.0-35.9) 06/07/17 08:15 RDW 14.5 % (11.9-15.9) 06/07/17 08:15 Plt Count 303 K/MM3 (134-434) 06/07/17 08:15 MPV 7.0 fl (7.5-11.1) L 06/07/17 08:15 Sodium 129 mmol/L (136-145) L 06/07/17 08:15 Potassium 4.8 mmol/L (3.5-5.1) 06/07/17 08:15 Chloride 93 mmol/L (98-107) L 06/07/17 08:15 Carbon Dioxide 29 mmol/L (21-32) 06/07/17 08:15 Anion Gap 7 (8-16) L 06/07/17 08:15 BUN 8 mg/dL (7-18) 06/07/17 08:15 Creatinine 0.7 mg/dL (0.7-1.3) 06/07/17 08:15 Creat Clearance w eGFR > 60 (>60) 06/07/17 08:15 POC Glucometer 75 UNITS (80-120) 06/10/17 05:22 Random Glucose 84 mg/dL (74-106) D 06/07/17 08:15 Calcium 9.0 mg/dL (8.5-10.1) 06/07/17 08:15 Total Bilirubin 0.9 mg/dL (0.2-1.0) 06/07/17 08:15 AST 27 U/L (15-37) 06/07/17 08:15 ALT 33 U/L (12-78) 06/07/17 08:15 Alkaline Phosphatase 112 U/L (45-117) 06/07/17 08:15 Total Protein 8.1 g/dl (6.4-8.2) 06/07/17 08:15 Albumin 3.9 g/dl (3.4-5.0) 06/07/17 08:15 Urine Color Straw 06/08/17 10:00 Urine Appearance Clear 06/08/17 10:00 Urine pH 8.0 (5.0-8.0) D 06/08/17 10:00 Ur Specific [place] 1.003 (1.001-1.035) 06/08/17 10:00 Urine Protein Negative (NEGATIVE) 06/08/17 10:00 Urine Glucose (UA) Negative (NEGATIVE) 06/08/17 10:00 Urine Ketones Negative (NEGATIVE) 06/08/17 10:00 Urine Blood Negative (NEGATIVE) 06/08/17 10:00 Urine Nitrite Negative (NEGATIVE) 06/08/17 10:00 Urine Bilirubin Negative (NEGATIVE) 06/08/17 10:00 Urine Urobilinogen Negative mg/dL (0.2-1.0) 06/08/17 10:00 Ur Leukocyte Esterase 1+ (NEGATIVE) H 06/08/17 10:00 Urine RBC 0-3 /hpf (0-3) 06/08/17 10:00 Urine WBC 3-5 (0-2) 06/08/17 10:00 Ur Epithelial Cells 0-3 /HPF 06/08/17 10:00 Amorphous Phosphates Few /hpf (NONE SEEN) 06/08/17 10:00 RPR Titer Nonreactive (NONREACTIVE) 06/07/17 08:15 HIV 1&2 Antibody Screen Negative 06/07/17 08:15 HIV P24 Antigen Negative 11/16/17 08:15 labs noted - Treatment Hospital Course: Detox Protocol Followed, Detoxed Safely, Responded well, Discharged Condition Good Patient has Accepted a Rehab Referral to: [facility] drop in center - Medication Discharge Medications: Ambulatory Orders Ranitidine [Zantac -] 150 mg PO BID #60 tablet 07/25/16 Tamsulosin HCl [Flomax -] 0.4 mg PO DAILY@0830 #30 cap.er.24h 07/25/16 Benztropine Mesylate [Cogentin -] 1 mg PO BID 05/03/17 Fluphenazine HCl [Prolixin -] 10 mg PO BID 05/03/17 Fluphenazine HCl [Prolixin -] 5 mg PO HS #30 tablet 05/05/17 Albuterol Sulfate Inhaler - [Ventolin Hfa Inhaler -] 2 inh PO Q4H PRN #1 inhaler 05/07/17 Amlodipine Besylate [Norvasc -] 5 mg PO BID #30 mg 05/07/17 Fluticasone Prop 0.05% Nasal [Flonase -] 1 spray NS DAILY #1 bot 05/07/17 Metformin HCl [Glucophage -] 500 mg PO BID #60 mg 05/07/17 Benztropine Mesylate [Cogentin -] 2 mg PO HS #30 tablet 06/08/17 Fluphenazine HCl [Prolixin -] 10 mg PO HS #60 tablet 06/08/17 - Diagnosis (1) Alcohol dependence with uncomplicated withdrawal Current Visit: Yes Status: Acute (2) Nicotine dependence Current Visit: Yes Status: Acute Qualifiers: Nicotine product type: cigarettes Substance use status: in withdrawal Qualified Code(s): F17.213 - Nicotine dependence, cigarettes, with withdrawal (3) Paranoid schizophrenia Current Visit: Yes Status: Chronic (4) Arthritis Current Visit: Yes Status: Chronic (5) Asthma Current Visit: Yes Status: Chronic Qualifiers: Asthma severity: mild Asthma persistence: intermittent Asthma complication type: with status asthmaticus Qualified Code(s): J45.22 - Mild intermittent asthma with status asthmaticus (6) BPH (benign prostatic hyperplasia) Current Visit: Yes Status: Chronic (7) Diabetes mellitus Current Visit: Yes Status: Chronic Qualifiers: Diabetes mellitus type: other specified (including LUIS MANUEL) Diabetes mellitus complication status: without complication 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
[2017-06-10] MEDS: NAPROXEN 500 MG TABLET (FP) PO SCH (09:31)
[2017-06-10] MEDS: RANITIDINE HCL 150 MG TABLET (FP) PO SCH (09:31)
[2017-06-10] MEDS: amLODIPine BESYLATE 5 MG TABLET (FP) PO SCH (09:31)
[2017-06-10] MEDS: PRENATAL VITAMINS W/ FOLIC ACID TABLET (FP) PO SCH (09:31)
[2017-06-10] MEDS: BENZTROPINE MESYLATE 1 MG TABLET (FP) PO SCH (09:32)
[2017-06-10] MEDS: GABAPENTIN 100 MG CAPSULE (FP) PO SCH (09:34)
[2017-06-10 09:37] VITALS: BP 138/76; PULSE 86; TEMP 97.5
== END 2017-06-10 09:43 | disposition home or self-care (01) | DRG 750 ==
LOC: YASAS 19:46 → Y6N 21:29
PROVIDERS: ADMIT Internal Medicine; ATTEND Internal Medicine
PROC: HZ2ZZZZ Detoxification Services for Substance Abuse Treatment (ICD-10-PCS; principal; 2017-06-06)
DX: F20.0 Paranoid schizophrenia (principal); F10.230 Alcohol dependence with withdrawal, uncomplicated; F17.213 Nicotine dependence, cigarettes, with withdrawal; G47.00 Insomnia, unspecified; I10 Essential (primary) hypertension; E11.9 Type 2 diabetes mellitus without complications; Z79.84 Long term (current) use of oral hypoglycemic drugs; K21.9 Gastro-esophageal reflux disease without esophagitis; N40.0 Benign prostatic hyperplasia without lower urinary tract symptoms; Z91.81 History of falling; R26.89 Other abnormalities of gait and mobility; Z99.89 Dependence on other enabling machines and devices; M13.862 Other specified arthritis, left knee; M13.861 Other specified arthritis, right knee
CPT/HCPCS: 36415; 80053; 81003; 81015; 85027; 86593; 87389; 90688; 93005; 93010

== ENCOUNTER 2017-06-15 10:15 | Inpatient (IN) | payer OTHER ==
[2017-06-15 10:53] VITALS: BMI 30.4
--- NOTE | 2017-06-15 15:16 | HP ---
[facility] Rehab Assess/Revision - Admission History Date of Admission to Rehab: 06/15/17 - Vital signs Vital Signs: Vital Signs Period Temp Pulse Resp BP Sys/Reich Pulse Ox Last 24 Hr 98.1 F 90 18 150/70 - Findings Detox History & Physical reviewed: Yes Concur with findings: Yes Comments/Additional Findings: FOR REHAB PROTOCOL Inpatient Rehab Admission - Initial Determination Are CD services needed?: Yes Free of communicable disease: Yes Not in need of hospitalization: Yes - Rehab Admission Criteria Previous failed treatment: Yes Poor recovery environment: Yes Comorbidities: Yes Patient is meeting Inpatient Rehab admission criteria:: Yes
[2017-06-15] MEDS ORDERED: guaiFENesin/D-METHORPHAN HB 10 ML UNIT-DOSE CUPS PO PRN (15:17)
[2017-06-15] MEDS ORDERED: LOPERAMIDE HCL 2 MG CAPSULE PO PRN (15:17)
[2017-06-15] MEDS ORDERED: MAGNESIUM HYDROX 2400MG/30ML ORAL SUSPENSION 30 ML CUP PO PRN (15:17)
[2017-06-15] MEDS ORDERED: MAG HYDROX/AL HYDROX/SIMETH 30 ML UNIT-DOSE CUP PO PRN (15:17)
[2017-06-15] MEDS ORDERED: MAGNESIUM CITRATE 300 ML BOTTLE PO PRN (15:17)
[2017-06-15] MEDS ORDERED: P-EPHED 60MG/TRIPROLIDI 2.5MG TABLET PO PRN (15:17)
[2017-06-15] MEDS ORDERED: MENTHOL/PHENOL 1 EACH UD MM PRN (15:17)
[2017-06-15] MEDS: NICOTINE 21 MG/24 HOURS TOPICAL PATCH TD SCH (23:22)
[2017-06-15] MEDS: RANITIDINE HCL 150 MG TABLET (FP) PO SCH (23:28)
[2017-06-15] MEDS: THIAMINE HCL 100 MG TABLET (FP) PO SCH (23:28)
[2017-06-15] MEDS: metFORMIN HCL 500 MG TABLET (FP) PO SCH (23:29)
[2017-06-15] MEDS: BENZTROPINE MESYLATE 1 MG TABLET (FP) PO SCH (23:29)
[2017-06-15] MEDS: amLODIPine BESYLATE 5 MG TABLET (FP) PO SCH (23:29)
[2017-06-15] MEDS: ALBUTEROL SO4 18 GM HFA INHALER IH PRN (23:30)
[2017-06-16 01:55] LABS: URINE APPEARANCE SLCLOUDY; URINE BILIRUBIN NEGATIVE (NEGATIVE); URINE BLOOD NEGATIVE (NEGATIVE); URINE COLOR LTYELLOW; URINE GLUCOSE (UA) NEGATIVE (NEGATIVE); URINE KETONE NEGATIVE (NEGATIVE); URINE NITRITE NEGATIVE (NEGATIVE); URINE PROTEIN NEGATIVE (NEGATIVE); URINE UROBILINOGEN NEGATIVE mg/dL (0.2-1.0)
[2017-06-16] MEDS: metFORMIN HCL 500 MG TABLET (FP) PO SCH ×2 (07:14→16:40)
[2017-06-16] MEDS: amLODIPine BESYLATE 5 MG TABLET (FP) PO SCH ×2 (09:24→21:11)
[2017-06-16] MEDS: RANITIDINE HCL 150 MG TABLET (FP) PO SCH ×2 (09:24→21:11)
[2017-06-16] MEDS: FLUTICASONE PROP 0.05% 16 GM NASAL SPRAY NS SCH (09:24)
[2017-06-16] MEDS: PRENATAL VITAMINS W/ FOLIC ACID TABLET (FP) PO SCH (09:24)
[2017-06-16] MEDS: BENZTROPINE MESYLATE 1 MG TABLET (FP) PO SCH ×2 (09:25→21:11)
[2017-06-16] MEDS: NICOTINE 21 MG/24 HOURS TOPICAL PATCH TD SCH (09:25)
[2017-06-16] MEDS: IBUPROFEN 400 MG TABLET (FP) PO PRN (09:27)
[2017-06-16] MEDS: TAMSULOSIN HCL 0.4 MG CAP.ER.24H (FP) PO SCH (09:27)
[2017-06-16 12:04] LABS: URINE LEUK ESTERASE TRACE (NEGATIVE)
[2017-06-16] MEDS: ACETAMINOPHEN 325 MG TABLET (FP) PO PRN (16:43)
[2017-06-16] MEDS: THIAMINE HCL 100 MG TABLET (FP) PO SCH (21:11)
[2017-06-16] MEDS: ALBUTEROL SO4 18 GM HFA INHALER IH PRN (21:12)
[2017-06-17] MEDS: hydrOXYzine PAMOATE 25 MG CAPSULE (FP) PO PRN (03:15)
[2017-06-17] MEDS: metFORMIN HCL 500 MG TABLET (FP) PO SCH ×2 (07:03→16:16)
[2017-06-17] MEDS: TAMSULOSIN HCL 0.4 MG CAP.ER.24H (FP) PO SCH (09:30)
[2017-06-17] MEDS: RANITIDINE HCL 150 MG TABLET (FP) PO SCH ×2 (10:14→21:09)
[2017-06-17] MEDS: PRENATAL VITAMINS W/ FOLIC ACID TABLET (FP) PO SCH (10:14)
[2017-06-17] MEDS: FLUTICASONE PROP 0.05% 16 GM NASAL SPRAY NS SCH (10:15)
[2017-06-17] MEDS: BENZTROPINE MESYLATE 1 MG TABLET (FP) PO SCH ×2 (10:15→21:09)
[2017-06-17] MEDS: amLODIPine BESYLATE 5 MG TABLET (FP) PO SCH ×2 (10:15→21:08)
[2017-06-17] MEDS: IBUPROFEN 400 MG TABLET (FP) PO PRN ×2 (10:16→16:19)
[2017-06-17] MEDS: NICOTINE POLACRILEX 4 MG GUM BUC PRN (10:18)
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
[2017-06-17] MEDS: ALBUTEROL SO4 18 GM HFA INHALER IH PRN (15:21)
[2017-06-17] MEDS: THIAMINE HCL 100 MG TABLET (FP) PO SCH (21:09)
[2017-06-17] MEDS: ACETAMINOPHEN 325 MG TABLET (FP) PO PRN (21:09)
[2017-06-18] MEDS: hydrOXYzine PAMOATE 25 MG CAPSULE (FP) PO PRN (03:40)
[2017-06-18] MEDS: metFORMIN HCL 500 MG TABLET (FP) PO SCH (06:29)
[2017-06-18] MEDS: IBUPROFEN 400 MG TABLET (FP) PO PRN (06:30)
[2017-06-18] MEDS: NICOTINE POLACRILEX 4 MG GUM BUC PRN ×2 (06:33→09:32)
[2017-06-18 06:40] VITALS: TEMP 97.7
[2017-06-18] MEDS: TAMSULOSIN HCL 0.4 MG CAP.ER.24H (FP) PO SCH (07:37)
[2017-06-18] MEDS: PRENATAL VITAMINS W/ FOLIC ACID TABLET (FP) PO SCH (09:30)
[2017-06-18] MEDS: amLODIPine BESYLATE 5 MG TABLET (FP) PO SCH (09:30)
[2017-06-18] MEDS: RANITIDINE HCL 150 MG TABLET (FP) PO SCH (09:30)
[2017-06-18] MEDS: FLUTICASONE PROP 0.05% 16 GM NASAL SPRAY NS SCH (09:31)
[2017-06-18] MEDS: BENZTROPINE MESYLATE 1 MG TABLET (FP) PO SCH (09:31)
[2017-06-18] MEDS: ALBUTEROL SO4 18 GM HFA INHALER IH PRN (09:33)
--- NOTE | 2017-06-18 09:59 | PN ---
Psychiatric Progress Note Vital Signs: Vital Signs Period Temp Pulse Resp BP Sys/Reich Pulse Ox Last 24 Hr 97.7 F-98.1 F 75-95 16-20 128-152/82-99 Date of Session: 06/18/17 Chief Complaint:: Discharge visit HPI: Alcohol dependence comorbid with ROS: Significant for BA,Chronic arthritis. Current Medications: Active Medications Generic Name Dose Route Start Last Admin Trade Name Freq PRN Reason Stop Dose Admin Acetaminophen 650 mg 06/15/17 15:17 06/17/17 21:09 Tylenol - PO 650 mg Q4H PRN Administration FEVER OR PAIN Al Hydroxide/Mg Hydroxide 30 ml 06/15/17 15:17 Mylanta Oral Suspension - PO Q6H PRN DYSPEPSIA Albuterol Sulfate 2 puff 06/15/17 15:19 06/18/17 09:33 Ventolin Hfa Inhaler - IH 2 puff Q4H PRN Administration ASTHMA Amlodipine Besylate 5 mg 06/15/17 22:00 06/18/17 09:30 Norvasc - PO 5 mg BID CRYSTAL Administration Benztropine Mesylate 1 mg 06/15/17 22:00 06/18/17 09:31 Cogentin - PO 1 mg BID CRYSTAL Administration Eucalyptus/Menthol/Phenol/Sorbitol 1 each 06/15/17 15:17 Cepastat Lozenge - MM Q4H PRN SORE THROAT Fluphenazine HCl 10 mg 06/17/17 22:00 06/18/17 09:31 Prolixin - PO 10 mg BID CRYSTAL Administration Fluticasone Propionate 1 spray 06/16/17 10:00 06/18/17 09:31 Flonase - NS 1 spray DAILY CRYSTAL Administration Guaifenesin 10 ml 06/15/17 15:17 06/17/17 16:22 Robitussin Dm - PO 10 ml Q6H PRN Administration COUGH Hydroxyzine Pamoate 25 mg 06/15/17 15:17 06/18/17 03:40 Vistaril - PO 25 mg Q4H PRN Administration AGITATION Ibuprofen 400 mg 06/15/17 15:17 06/18/17 06:30 Motrin - PO 400 mg Q6H PRN Administration PAIN Loperamide HCl 4 mg 06/15/17 15:17 Imodium - PO Q6H PRN DIARRHEA Magnesium Citrate 300 ml 06/15/17 15:17 Citroma - PO Q48H PRN CONSTIPATION Magnesium Hydroxide 30 ml 06/15/17 15:17 Milk Of Magnesia - PO DAILY PRN CONSTIPATION Metformin HCl 500 mg 06/15/17 22:00 06/18/17 06:29 Glucophage - PO 500 mg BIDAC CRYSTAL Administration Nicotine Polacrilex 4 mg 06/17/17 07:24 06/18/17 09:32 Nicorette Gum - BUC 4 mg Q2H PRN Administration NICOTINE REPLACEMENT RX Multivit/Folic Acid/Iron 1 tab 06/16/17 10:00 06/18/17 09:30 Vitamins (Sjr) - PO 1 tab DAILY CRYSTAL Administration Pseudoephedrine/Triprolidine 1 combo 06/15/17 15:17 Actifed - PO TID PRN NASAL CONGESTION Ranitidine HCl 150 mg 06/15/17 22:00 06/18/17 09:30 Zantac - PO 150 mg BID CRYSTAL Administration Tamsulosin HCl 0.4 mg 06/16/17 08:30 06/18/17 07:37 Flomax - PO 0.4 mg DAILY@0830 CRYSTAL Administration Thiamine HCl 100 mg 06/15/17 22:00 06/17/17 21:09 Vitamin B1 - PO 100 mg HS CRYSTAL Administration Current Side Effect: No Lab tests ordered: No Lab tests reviewed: Yes Provider note:: Patient decided to sign out today,stating that he has to pay his bills.Patient dint meet his treatment goals and will continue to address his issues on outpatient basis at [facility].Patient reports finding Cogentin 1 mg po bid and Prolixin 10 mg po bid help to cope with his psychosis, mood instabilty.Scripts for 30 days provided. Supportive therapy provided focusing on relapse prevention. Patient is stable for discharge today. Total face to face time:: 30 Mental Status Exam - Mental Status Exam Alert and Oriented to: Time, Place, Person Cognitive Function: Grossly Intact Patient Appearance: Unkempt Mood: Euthymic Affect: Mood Congruent Patient Behavior: Cooperative Speech Pattern: Clear Voice Loudness: Normal Thought Process: Goal Oriented Thought Disorder: Being Controlled Hallucinations: Denies Suicidal Ideation: Denies Homicidal Ideation: Denies Insight/Judgement: Poor Sleep: Fair Appetite: Good Muscle strength/Tone: Normal Gait/Station: Normal Psychiatric Treatment Plan - Problem List (1) Alcohol-induced mood disorder Current Visit: Yes (2) Nicotine dependence Current Visit: Yes Qualifiers: (3) Arthritis Current Visit: Yes (4) Asthma Current Visit: Yes Qualifiers: Comment: VENTOLIN+NEBULIZER+PREDNISON+AZITHROMYCIN (5) BPH (benign prostatic hyperplasia) Current Visit: Yes Comment: TAMSULOSIN 0.4 MG EXTEND
[2017-06-18] MEDS ORDERED: NAPROXEN 500 MG TABLET (FP) PO SCH (11:00)
[2017-06-18] MEDS ORDERED: PANTOPRAZOLE 40 MG TABLET (FP) PO SCH (11:00)
[2017-06-18 11:39] VITALS: BP 139/86; PULSE 80
--- NOTE | 2017-06-19 01:03 | EKG ---
Test Reason : Blood Pressure : / mmHG Vent. Rate : 083 BPM Atrial Rate : 083 BPM P-R Int : 170 ms QRS Dur : 092 ms QT Int : 388 ms P-R-T Axes : 059 -28 055 degrees QTc Int : 455 ms NORMAL SINUS RHYTHM SEPTAL INFARCT (CITED ON OR BEFORE 23-SEP-2016) ABNORMAL ECG WHEN COMPARED WITH ECG OF 07-JUN-2017 00:28, PREMATURE ATRIAL COMPLEXES ARE NO LONGER PRESENT Confirmed by GONZALO BYRD MD ([id number]) on 06/19/2017 1:03:26 AM Referred By: Confirmed By:GONZALO BYRD MD
[2017-06-19] MEDS ORDERED: amLODIPine BESYLATE 10 MG TABLET (FP) PO SCH (10:00)
== END 2017-06-18 11:15 | disposition left against medical advice (07) | DRG 770 ==
LOC: YASAS 10:15 → Y3W 16:08
PROVIDERS: ADMIT Psychiatry & Neurology Psychiatry; ATTEND Psychiatry & Neurology Psychiatry
PROC: HZ42ZZZ Group Counseling for Substance Abuse Treatment, Cognitive-Behavioral (ICD-10-PCS; principal; 2017-06-15)
DX: F10.24 Alcohol dependence with alcohol-induced mood disorder (principal); F10.282 Alcohol dependence with alcohol-induced sleep disorder; F17.210 Nicotine dependence, cigarettes, uncomplicated; F20.0 Paranoid schizophrenia; J45.909 Unspecified asthma, uncomplicated; N40.0 Benign prostatic hyperplasia without lower urinary tract symptoms; M11.9 Crystal arthropathy, unspecified; E11.9 Type 2 diabetes mellitus without complications; I10 Essential (primary) hypertension; K21.9 Gastro-esophageal reflux disease without esophagitis; G62.9 Polyneuropathy, unspecified; R26.2 Difficulty in walking, not elsewhere classified; Z99.89 Dependence on other enabling machines and devices; Z87.438 Personal history of other diseases of male genital organs; Z79.84 Long term (current) use of oral hypoglycemic drugs
CPT/HCPCS: 81003; 81015; 93005; 93010

== ENCOUNTER 2017-08-11 09:37 | Inpatient (IN) | payer OTHER ==
[2017-08-11 09:59] VITALS: BMI 30.1
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
[2017-08-11] MEDS ORDERED: MAGNESIUM HYDROX 2400MG/30ML ORAL SUSPENSION 30 ML CUP PO PRN (11:24)
[2017-08-11] MEDS ORDERED: LOPERAMIDE HCL 2 MG CAPSULE PO PRN (11:24)
[2017-08-11] MEDS ORDERED: hydrOXYzine PAMOATE 25 MG CAPSULE (FP) PO PRN (11:24)
[2017-08-11] MEDS ORDERED: MENTHOL/PHENOL 1 EACH UD MM PRN (11:24)
[2017-08-11] MEDS ORDERED: P-EPHED 60MG/TRIPROLIDI 2.5MG TABLET PO PRN (11:24)
[2017-08-11] MEDS ORDERED: MAGNESIUM CITRATE 300 ML BOTTLE PO PRN (11:24)
[2017-08-11] MEDS ORDERED: chlordiazePOXIDE HCL 25 MG CAPSULE PO PRN (11:24)
[2017-08-11] MEDS ORDERED: chlordiazePOXIDE HCL 25 MG CAPSULE PO ONE (12:30)
[2017-08-11] MEDS: amLODIPine BESYLATE 5 MG TABLET (FP) PO SCH (14:45)
[2017-08-11] MEDS: GABAPENTIN 100 MG CAPSULE (FP) PO SCH ×2 (14:45→19:33)
--- NOTE | 2017-08-11 15:16 | EKG ---
Test Reason : Blood Pressure : / mmHG Vent. Rate : 079 BPM Atrial Rate : 079 BPM P-R Int : 192 ms QRS Dur : 086 ms QT Int : 382 ms P-R-T Axes : 055 -25 016 degrees QTc Int : 438 ms NORMAL SINUS RHYTHM SEPTAL INFARCT (CITED ON OR BEFORE 23-SEP-2016) ABNORMAL ECG WHEN COMPARED WITH ECG OF 16-JUN-2017 12:34, NO SIGNIFICANT CHANGE WAS FOUND Confirmed by Blaise Osorio ([id number]) on 08/11/2017 3:15:35 PM Referred By: Confirmed By:Blaise Osorio
[2017-08-11] MEDS: chlordiazePOXIDE HCL 25 MG CAPSULE PO SCH ×2 (17:54→22:42)
[2017-08-11 19:49] LABS: URINE APPEARANCE CLEAR; URINE BILIRUBIN NEGATIVE (NEGATIVE); URINE BLOOD NEGATIVE (NEGATIVE); URINE COLOR COLORLESS; URINE GLUCOSE (UA) NEGATIVE (NEGATIVE); URINE KETONE NEGATIVE (NEGATIVE); URINE NITRITE NEGATIVE (NEGATIVE); URINE PROTEIN NEGATIVE (NEGATIVE); URINE UROBILINOGEN NEGATIVE mg/dL (0.2-1.0)
[2017-08-11 19:50] LABS: URINE LEUK ESTERASE 1+ (NEGATIVE)
[2017-08-11 19:54] LABS: EPI CELLS RARE /HPF (FEW); URINE BACTERIA RARE /hpf (NONE SEEN)
[2017-08-11] MEDS: THIAMINE HCL 100 MG TABLET (FP) PO SCH (22:42)
[2017-08-11] MEDS: guaiFENesin/D-METHORPHAN HB 10 ML UNIT-DOSE CUPS PO PRN (22:44)
[2017-08-11] MEDS: MAG HYDROX/AL HYDROX/SIMETH 30 ML UNIT-DOSE CUP PO PRN (22:45)
[2017-08-12] MEDS: ALBUTEROL SO4 18 GM HFA INHALER IH PRN ×2 (04:11→10:41)
[2017-08-12] MEDS: chlordiazePOXIDE HCL 25 MG CAPSULE PO SCH ×4 (05:48→22:37)
[2017-08-12] MEDS: GABAPENTIN 100 MG CAPSULE (FP) PO SCH ×3 (05:49→22:37)
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
[2017-08-12] MEDS: TAMSULOSIN HCL 0.4 MG CAP.ER.24H (FP) PO SCH (08:43)
[2017-08-12 10:30] LABS: HEMATOCRIT 38.8 % (35.4-49); HEMOGLOBIN 12.5 GM/dL (11.7-16.9); MCH 27.3 pg (25.7-33.7); MCHC 32.3 g/dl (32.0-35.9); MEAN CELL VOLUME 84.6 fl (80-96); MEAN PLT VOLUME 6.6 fl (7.5-11.1); PLATELET COUNT 498 K/MM3 (134-434); RBC 4.59 M/mm3 (4.00-5.60); RDW 15.5 % (11.9-15.9); WHITE BLOOD COUNT 6.1 K/mm3 (4.0-10.0)
[2017-08-12 10:36] LABS: ALBUMIN 3.7 g/dl (3.4-5.0); ANION GAP 8 (8-16); BLOOD UREA NITROGEN 11 mg/dL (7-18); CALCIUM 8.4 mg/dL (8.5-10.1); CHLORIDE 93 mmol/L (98-107); CO2 26 mmol/L (21-32); CREATININE 0.7 mg/dL (0.7-1.3); GLUCOSE,RANDOM 53 mg/dL (74-106); POTASSIUM 4.6 mmol/L (3.5-5.1); SGOT/AST 16 U/L (15-37); SGPT/ALT 24 U/L (12-78); SODIUM 127 mmol/L (136-145)
[2017-08-12 10:38] LABS: ALK PHOS 109 U/L (45-117); BILIRUBIN,TOTAL 0.6 mg/dL (0.2-1.0); TOT PROT 7.4 g/dl (6.4-8.2)
[2017-08-12] MEDS: PRENATAL VITAMINS W/ FOLIC ACID TABLET (FP) PO SCH (10:41)
[2017-08-12] MEDS: amLODIPine BESYLATE 5 MG TABLET (FP) PO SCH (10:41)
[2017-08-12] MEDS: BENZTROPINE MESYLATE 1 MG TABLET (FP) PO SCH ×2 (11:35→22:37)
--- NOTE | 2017-08-12 16:54 | PN ---
S CIWA - CIWA Score Nausea/Vomitin Muscle Tremors: 3 Anxiety: 4-Mod. Anxious/Guarded Agitation: 4-Moderately Restless Paroxysmal Sweats: 3 Orientation: 0-Oriented Tacttile Disturbances: 1-Very Mild Itch/Numbness Auditory Disturbances: 0-None Visual Disturbances: 0-None Headache: 0-None Present CIWA-Ar Total Score: 18 BHS Progress Note (SOAP) Subjective: Anxious, restless, interrupted sleep, c/o sore throat (encouraged salt water gargle) Objective: 08/12/17 16:53 Last Vital Signs Temp Pulse Resp BP Pulse Ox 97.3 F L 96 H 20 142/76 08/12/17 13:31 08/12/17 13:31 08/12/17 13:31 08/12/17 13:31 PE: Mouth: no pharyngeal erythema/exudates noted Laboratory Tests 08/11/17 08/11/17 08/12/17 12:14 19:00 06:49 WBC RBC Hgb Hct MCV MCH MCHC RDW Plt Count MPV Sodium Potassium Chloride Carbon Dioxide Anion Gap BUN Creatinine Creat Clearance w eGFR POC Glucometer 102 89 Random Glucose Calcium Total Bilirubin AST ALT Alkaline Phosphatase Total Protein Albumin Urine Color Colorless Urine Appearance Clear Urine pH 7.0 Ur Specific [place] 1.004 Urine Protein Negative Urine Glucose (UA) Negative Urine Ketones Negative Urine Blood Negative Urine Nitrite Negative Urine Bilirubin Negative Urine Urobilinogen Negative Ur Leukocyte Esterase 1+ H Urine WBC (Auto) 2 Urine RBC (Auto) <1 Ur Epithelial Cells Rare Urine Bacteria Rare RPR Titer HIV 1&2 Antibody Screen HIV P24 Antigen 08/12/17 08/12/17 08/12/17 07:40 07:40 07:40 WBC 6.1 RBC 4.59 Hgb 12.5 D Hct 38.8 MCV 84.6 MCH 27.3 MCHC 32.3 RDW 15.5 Plt Count 498 H D MPV 6.6 L Sodium 127 L Potassium 4.6 Chloride 93 L Carbon Dioxide 26 Anion Gap 8 BUN 11 D Creatinine 0.7 Creat Clearance w eGFR > 60 POC Glucometer Random Glucose 53 L D Calcium 8.4 L Total Bilirubin 0.6 D AST 16 D ALT 24 D Alkaline Phosphatase 109 Total Protein 7.4 Albumin 3.7 Urine Color Urine Appearance Urine pH Ur Specific [place] Urine Protein Urine Glucose (UA) Urine Ketones Urine Blood Urine Nitrite Urine Bilirubin Urine Urobilinogen Ur Leukocyte Esterase Urine WBC (Auto) Urine RBC (Auto) Ur Epithelial Cells Urine Bacteria RPR Titer Nonreactive HIV 1&2 Antibody Screen HIV P24 Antigen 08/12/17 07:40 WBC RBC Hgb Hct MCV MCH MCHC RDW Plt Count MPV Sodium Potassium Chloride Carbon Dioxide Anion Gap BUN Creatinine Creat Clearance w eGFR POC Glucometer Random Glucose Calcium Total Bilirubin AST ALT Alkaline Phosphatase Total Protein Albumin Urine Color Urine Appearance Urine pH Ur Specific [place] Urine Protein Urine Glucose (UA) Urine Ketones Urine Blood Urine Nitrite Urine Bilirubin Urine Urobilinogen Ur Leukocyte Esterase Urine WBC (Auto) Urine RBC (Auto) Ur Epithelial Cells Urine Bacteria RPR Titer HIV 1&2 Antibody Screen Negative HIV P24 Antigen Negative Labs noted Assessment: 08/12/17 16:54 Withdrawal symptoms Plan: Continue detox Encouraged to drink lots of water
[2017-08-12] MEDS: NICOTINE POLACRILEX 4 MG GUM BUC PRN (17:58)
[2017-08-12] MEDS: IBUPROFEN 400 MG TABLET (FP) PO PRN (18:00)
[2017-08-12] MEDS: QUEtiapine FUMARATE 100 MG TABLET (FP) PO SCH (22:37)
[2017-08-12] MEDS: THIAMINE HCL 100 MG TABLET (FP) PO SCH (22:39)
[2017-08-12] MEDS: ACETAMINOPHEN 325 MG TABLET (FP) PO PRN (22:41)
[2017-08-13] MEDS: ALBUTEROL SO4 18 GM HFA INHALER IH PRN ×2 (04:41→21:49)
[2017-08-13] MEDS ORDERED: ALBUTEROL SO4 2.5/IPRATROPIUM 0.5 INH SOL 3 ML VIAL.NEB. NEB PRN (04:46)
[2017-08-13] MEDS: chlordiazePOXIDE HCL 25 MG CAPSULE PO SCH ×2 (04:58→10:36)
[2017-08-13] MEDS: GABAPENTIN 100 MG CAPSULE (FP) PO SCH ×3 (04:59→21:47)
[2017-08-13] MEDS: NICOTINE POLACRILEX 4 MG GUM BUC PRN ×3 (05:10→21:52)
[2017-08-13] MEDS: MAG HYDROX/AL HYDROX/SIMETH 30 ML UNIT-DOSE CUP PO PRN ×2 (05:23→13:14)
[2017-08-13] MEDS: guaiFENesin/D-METHORPHAN HB 10 ML UNIT-DOSE CUPS PO PRN ×2 (05:23→16:49)
[2017-08-13] MEDS: FLUTICASONE PROP 0.05% 16 GM NASAL SPRAY NS SCH (10:35)
[2017-08-13] MEDS: amLODIPine BESYLATE 5 MG TABLET (FP) PO SCH (10:36)
[2017-08-13] MEDS: PRENATAL VITAMINS W/ FOLIC ACID TABLET (FP) PO SCH (10:36)
[2017-08-13] MEDS: BENZTROPINE MESYLATE 1 MG TABLET (FP) PO SCH ×2 (10:36→21:46)
[2017-08-13] MEDS: TAMSULOSIN HCL 0.4 MG CAP.ER.24H (FP) PO SCH (10:39)
--- NOTE | 2017-08-13 12:19 | PN ---
[facility] CIWA - CIWA Score Nausea/Vomitin-No Nausea/No Vomiting Muscle Tremors: 4-Moderate,w/Arms Extend Anxiety: 4-Mod. Anxious/Guarded Agitation: 4-Moderately Restless Paroxysmal Sweats: 1-Minimal Palms Moist Orientation: 0-Oriented Tacttile Disturbances: 3-Moderate Itch/Numb/Burn Auditory Disturbances: 0-None Visual Disturbances: 0-None Headache: 0-None Present CIWA-Ar Total Score: 16 BHS Progress Note (SOAP) Subjective: ANXIETY,SLIGHT TREMORS,BODY ACHES,CHILLS,INTERMITTENT SLEEP. PT REPORTS HAS NOT TAKEN METFORMIN FOR 7 MONTHS. Objective: 08/13/17 12:15 Vital Signs Temperature 95.9 F L 08/13/17 09:48 Pulse Rate 75 08/13/17 09:48 Respiratory Rate 18 08/13/17 09:48 Blood Pressure 120/74 08/13/17 09:48 O2 Sat by Pulse Oximetry (%) Laboratory Last Values WBC 6.1 K/mm3 (4.0-10.0) 08/12/17 07:40 RBC 4.59 M/mm3 (4.00-5.60) 08/12/17 07:40 Hgb 12.5 GM/dL (11.7-16.9) D 08/12/17 07:40 Hct 38.8 % (35.4-49) 08/12/17 07:40 MCV 84.6 fl (80-96) 08/12/17 07:40 MCH 27.3 pg (25.7-33.7) 08/12/17 07:40 MCHC 32.3 g/dl (32.0-35.9) 08/12/17 07:40 RDW 15.5 % (11.9-15.9) 08/12/17 07:40 Plt Count 498 K/MM3 (134-434) H D 08/12/17 07:40 MPV 6.6 fl (7.5-11.1) L 08/12/17 07:40 Sodium 127 mmol/L (136-145) L 08/12/17 07:40 Potassium 4.6 mmol/L (3.5-5.1) 08/12/17 07:40 Chloride 93 mmol/L (98-107) L 08/12/17 07:40 Carbon Dioxide 26 mmol/L (21-32) 08/12/17 07:40 Anion Gap 8 (8-16) 08/12/17 07:40 BUN 11 mg/dL (7-18) D 08/12/17 07:40 Creatinine 0.7 mg/dL (0.7-1.3) 08/12/17 07:40 Creat Clearance w eGFR > 60 (>60) 08/12/17 07:40 POC Glucometer 107 UNITS (80-120) 08/13/17 04:44 Random Glucose 53 mg/dL (74-106) L D 08/12/17 07:40 Calcium 8.4 mg/dL (8.5-10.1) L 08/12/17 07:40 Total Bilirubin 0.6 mg/dL (0.2-1.0) D 08/12/17 07:40 AST 16 U/L (15-37) D 08/12/17 07:40 ALT 24 U/L (12-78) D 08/12/17 07:40 Alkaline Phosphatase 109 U/L (45-117) 08/12/17 07:40 Total Protein 7.4 g/dl (6.4-8.2) 08/12/17 07:40 Albumin 3.7 g/dl (3.4-5.0) 08/12/17 07:40 Urine Color Colorless 08/11/17 19:00 Urine Appearance Clear 08/11/17 19:00 Urine pH 7.0 (5.0-8.0) 08/11/17 19:00 Ur Specific [place] 1.004 (1.001-1.035) 08/11/17 19:00 Urine Protein Negative (NEGATIVE) 08/11/17 19:00 Urine Glucose (UA) Negative (NEGATIVE) 08/11/17 19:00 Urine Ketones Negative (NEGATIVE) 08/11/17 19:00 Urine Blood Negative (NEGATIVE) 08/11/17 19:00 Urine Nitrite Negative (NEGATIVE) 08/11/17 19:00 Urine Bilirubin Negative (NEGATIVE) 08/11/17 19:00 Urine Urobilinogen Negative mg/dL (0.2-1.0) 08/11/17 19:00 Ur Leukocyte Esterase 1+ (NEGATIVE) H 08/11/17 19:00 Urine WBC (Auto) 2 /hpf (3-5) 08/11/17 19:00 Urine RBC (Auto) <1 /hpf (0-3) 08/11/17 19:00 Ur Epithelial Cells Rare /HPF (FEW) 08/11/17 19:00 Urine Bacteria Rare /hpf (NONE SEEN) 08/11/17 19:00 RPR Titer Nonreactive (NONREACTIVE) 08/12/17 07:40 HIV 1&2 Antibody Screen Negative 08/12/17 07:40 HIV P24 Antigen Negative 08/12/17 07:40 Assessment: 08/13/17 12:15 WITHDRAWALS SX Plan: CONTINUE DETOX INCREASE PO FLUIDS. MONITOR BGM AND FOLLOW UP NECESSARY.
[2017-08-13] MEDS: chlordiazePOXIDE 5 MG CAPSULE PO SCH ×2 (16:50→23:07)
[2017-08-13] MEDS: ACETAMINOPHEN 325 MG TABLET (FP) PO PRN (17:18)
[2017-08-13 17:38] LABS: URINE APPEARANCE CLEAR; URINE BILIRUBIN NEGATIVE (NEGATIVE); URINE BLOOD NEGATIVE (NEGATIVE); URINE COLOR COLORLESS; URINE GLUCOSE (UA) NEGATIVE (NEGATIVE); URINE KETONE NEGATIVE (NEGATIVE); URINE LEUK ESTERASE NEGATIVE (NEGATIVE); URINE NITRITE NEGATIVE (NEGATIVE); URINE PROTEIN NEGATIVE (NEGATIVE); URINE UROBILINOGEN NEGATIVE mg/dL (0.2-1.0)
[2017-08-13] MEDS: IBUPROFEN 400 MG TABLET (FP) PO PRN (21:45)
[2017-08-13] MEDS: QUEtiapine FUMARATE 100 MG TABLET (FP) PO SCH (21:46)
[2017-08-13] MEDS: THIAMINE HCL 100 MG TABLET (FP) PO SCH (21:48)
[2017-08-14] MEDS: guaiFENesin/D-METHORPHAN HB 10 ML UNIT-DOSE CUPS PO PRN (04:08)
[2017-08-14] MEDS: GABAPENTIN 100 MG CAPSULE (FP) PO SCH ×3 (05:53→22:28)
[2017-08-14] MEDS: chlordiazePOXIDE 5 MG CAPSULE PO SCH ×2 (05:53→10:50)
[2017-08-14] MEDS: PRENATAL VITAMINS W/ FOLIC ACID TABLET (FP) PO SCH (10:52)
[2017-08-14] MEDS: TAMSULOSIN HCL 0.4 MG CAP.ER.24H (FP) PO SCH (10:52)
[2017-08-14] MEDS: amLODIPine BESYLATE 5 MG TABLET (FP) PO SCH (10:52)
[2017-08-14] MEDS: BENZTROPINE MESYLATE 1 MG TABLET (FP) PO SCH ×2 (10:52→22:30)
[2017-08-14] MEDS: FLUTICASONE PROP 0.05% 16 GM NASAL SPRAY NS SCH (10:52)
[2017-08-14] MEDS: NAPROXEN 500 MG TABLET (FP) PO SCH ×2 (10:53→22:28)
[2017-08-14] MEDS: ACETAMINOPHEN 325 MG TABLET (FP) PO PRN (15:31)
--- NOTE | 2017-08-14 15:39 | PN ---
BHS Progress Note (SOAP) Subjective: ANXIETY,SWEATS,IRRITABILITY. HIP PAIN. C/O NO TEETH AND DIFFICULTY WITH REGULAR FOOD. Objective: 08/14/17 15:34 Vital Signs Temperature 98.1 F 08/14/17 13:53 Pulse Rate 88 08/14/17 13:53 Respiratory Rate 18 08/14/17 13:53 Blood Pressure 135/80 08/14/17 13:53 O2 Sat by Pulse Oximetry (%) Laboratory Last Values WBC 6.1 K/mm3 (4.0-10.0) 08/12/17 07:40 RBC 4.59 M/mm3 (4.00-5.60) 08/12/17 07:40 Hgb 12.5 GM/dL (11.7-16.9) D 08/12/17 07:40 Hct 38.8 % (35.4-49) 08/12/17 07:40 MCV 84.6 fl (80-96) 08/12/17 07:40 MCH 27.3 pg (25.7-33.7) 08/12/17 07:40 MCHC 32.3 g/dl (32.0-35.9) 08/12/17 07:40 RDW 15.5 % (11.9-15.9) 08/12/17 07:40 Plt Count 498 K/MM3 (134-434) H D 08/12/17 07:40 MPV 6.6 fl (7.5-11.1) L 08/12/17 07:40 Sodium 127 mmol/L (136-145) L 08/12/17 07:40 Potassium 4.6 mmol/L (3.5-5.1) 08/12/17 07:40 Chloride 93 mmol/L (98-107) L 08/12/17 07:40 Carbon Dioxide 26 mmol/L (21-32) 08/12/17 07:40 Anion Gap 8 (8-16) 08/12/17 07:40 BUN 11 mg/dL (7-18) D 08/12/17 07:40 Creatinine 0.7 mg/dL (0.7-1.3) 08/12/17 07:40 Creat Clearance w eGFR > 60 (>60) 08/12/17 07:40 POC Glucometer 101 UNITS (80-120) 08/14/17 05:53 Random Glucose 53 mg/dL (74-106) L D 08/12/17 07:40 Calcium 8.4 mg/dL (8.5-10.1) L 08/12/17 07:40 Total Bilirubin 0.6 mg/dL (0.2-1.0) D 08/12/17 07:40 AST 16 U/L (15-37) D 08/12/17 07:40 ALT 24 U/L (12-78) D 08/12/17 07:40 Alkaline Phosphatase 109 U/L (45-117) 08/12/17 07:40 Total Protein 7.4 g/dl (6.4-8.2) 08/12/17 07:40 Albumin 3.7 g/dl (3.4-5.0) 08/12/17 07:40 Urine Color Colorless 08/13/17 15:00 Urine Appearance Clear 08/13/17 15:00 Urine pH 7.0 (5.0-8.0) 08/13/17 15:00 Ur Specific [place] 1.004 (1.001-1.035) 08/13/17 15:00 Urine Protein Negative (NEGATIVE) 08/13/17 15:00 Urine Glucose (UA) Negative (NEGATIVE) 08/13/17 15:00 Urine Ketones Negative (NEGATIVE) 08/13/17 15:00 Urine Blood Negative (NEGATIVE) 08/13/17 15:00 Urine Nitrite Negative (NEGATIVE) 08/13/17 15:00 Urine Bilirubin Negative (NEGATIVE) 08/13/17 15:00 Urine Urobilinogen Negative mg/dL (0.2-1.0) 08/13/17 15:00 Ur Leukocyte Esterase Negative (NEGATIVE) 08/13/17 15:00 Urine WBC (Auto) 2 /hpf (3-5) 08/11/17 19:00 Urine RBC (Auto) <1 /hpf (0-3) 08/11/17 19:00 Ur Epithelial Cells Rare /HPF (FEW) 08/11/17 19:00 Urine Bacteria Rare /hpf (NONE SEEN) 08/11/17 19:00 RPR Titer Nonreactive (NONREACTIVE) 08/12/17 07:40 HIV 1&2 Antibody Screen Negative 08/12/17 07:40 HIV P24 Antigen Negative 08/12/17 07:40 Assessment: 08/14/17 15:34 WITHDRAWAL SX Plan: CONTINUE DETOX
[2017-08-14] MEDS: chlordiazePOXIDE HCL 10 MG CAPSULE PO SCH ×2 (17:36→22:28)
[2017-08-14] MEDS: QUEtiapine FUMARATE 100 MG TABLET (FP) PO SCH (22:28)
[2017-08-14] MEDS: THIAMINE HCL 100 MG TABLET (FP) PO SCH (22:28)
[2017-08-14] MEDS: NICOTINE POLACRILEX 4 MG GUM BUC PRN (22:31)
[2017-08-15] MEDS: chlordiazePOXIDE HCL 10 MG CAPSULE PO SCH (05:03)
[2017-08-15] MEDS: GABAPENTIN 100 MG CAPSULE (FP) PO SCH (05:03)
[2017-08-15] MEDS: ALBUTEROL SO4 18 GM HFA INHALER IH PRN (05:03)
[2017-08-15] MEDS: NICOTINE POLACRILEX 4 MG GUM BUC PRN (05:05)
[2017-08-15 06:19] VITALS: BP 131/77; PULSE 95; TEMP 96.2
[2017-08-15] MEDS: TAMSULOSIN HCL 0.4 MG CAP.ER.24H (FP) PO SCH (09:33)
--- NOTE | 2017-08-15 13:01 | DS ---
[facility] Detox Discharge Summary Admission Date: 08/11/17 Discharge Date: 08/15/17 - History Present History: Alcohol Dependence Additional Comments: DETOX COMPLETED. ALERT O X3. NAD. PT INSTRUCTED TO FOLLOW UP WITH HIS PRIMARY CARE AT [facility] NEEDED. Pertinent Past History: SEE DX BELOW - Physical Exam Results Vital Signs: Vital Signs Temperature 96.2 F L 08/15/17 06:18 Pulse Rate 95 H 08/15/17 06:18 Respiratory Rate 20 08/15/17 06:18 Blood Pressure 131/77 08/15/17 06:18 O2 Sat by Pulse Oximetry (%) Pertinent Admission Physical Exam Findings: WITHDRAWAL SX Laboratory Last Values WBC 6.1 K/mm3 (4.0-10.0) 08/12/17 07:40 RBC 4.59 M/mm3 (4.00-5.60) 08/12/17 07:40 Hgb 12.5 GM/dL (11.7-16.9) D 08/12/17 07:40 Hct 38.8 % (35.4-49) 08/12/17 07:40 MCV 84.6 fl (80-96) 08/12/17 07:40 MCH 27.3 pg (25.7-33.7) 08/12/17 07:40 MCHC 32.3 g/dl (32.0-35.9) 08/12/17 07:40 RDW 15.5 % (11.9-15.9) 08/12/17 07:40 Plt Count 498 K/MM3 (134-434) H D 08/12/17 07:40 MPV 6.6 fl (7.5-11.1) L 08/12/17 07:40 Sodium 127 mmol/L (136-145) L 08/12/17 07:40 Potassium 4.6 mmol/L (3.5-5.1) 08/12/17 07:40 Chloride 93 mmol/L (98-107) L 08/12/17 07:40 Carbon Dioxide 26 mmol/L (21-32) 08/12/17 07:40 Anion Gap 8 (8-16) 08/12/17 07:40 BUN 11 mg/dL (7-18) D 08/12/17 07:40 Creatinine 0.7 mg/dL (0.7-1.3) 08/12/17 07:40 Creat Clearance w eGFR > 60 (>60) 08/12/17 07:40 POC Glucometer 94 UNITS (80-120) 08/15/17 05:02 Random Glucose 53 mg/dL (74-106) L D 08/12/17 07:40 Calcium 8.4 mg/dL (8.5-10.1) L 08/12/17 07:40 Total Bilirubin 0.6 mg/dL (0.2-1.0) D 08/12/17 07:40 AST 16 U/L (15-37) D 08/12/17 07:40 ALT 24 U/L (12-78) D 08/12/17 07:40 Alkaline Phosphatase 109 U/L (45-117) 08/12/17 07:40 Total Protein 7.4 g/dl (6.4-8.2) 08/12/17 07:40 Albumin 3.7 g/dl (3.4-5.0) 08/12/17 07:40 Urine Color Colorless 08/13/17 15:00 Urine Appearance Clear 08/13/17 15:00 Urine pH 7.0 (5.0-8.0) 08/13/17 15:00 Ur Specific [place] 1.004 (1.001-1.035) 08/13/17 15:00 Urine Protein Negative (NEGATIVE) 08/13/17 15:00 Urine Glucose (UA) Negative (NEGATIVE) 08/13/17 15:00 Urine Ketones Negative (NEGATIVE) 08/13/17 15:00 Urine Blood Negative (NEGATIVE) 08/13/17 15:00 Urine Nitrite Negative (NEGATIVE) 08/13/17 15:00 Urine Bilirubin Negative (NEGATIVE) 08/13/17 15:00 Urine Urobilinogen Negative mg/dL (0.2-1.0) 08/13/17 15:00 Ur Leukocyte Esterase Negative (NEGATIVE) 08/13/17 15:00 Urine WBC (Auto) 2 /hpf (3-5) 08/11/17 19:00 Urine RBC (Auto) <1 /hpf (0-3) 08/11/17 19:00 Ur Epithelial Cells Rare /HPF (FEW) 08/11/17 19:00 Urine Bacteria Rare /hpf (NONE SEEN) 08/11/17 19:00 RPR Titer Nonreactive (NONREACTIVE) 08/12/17 07:40 HIV 1&2 Antibody Screen Negative 08/12/17 07:40 HIV P24 Antigen Negative 08/12/17 07:40 - Treatment Hospital Course: Detox Protocol Followed, Detoxed Safely, Responded well, Discharged Condition Good - Medication Discharge Medications: Ambulatory Orders Albuterol Sulfate Inhaler - [Ventolin HFA Inhaler -] 2 inh PO Q4H PRN #1 inhaler 06/18/17 Fluticasone Prop 0.05% Nasal [Flonase -] 1 spray NS DAILY #1 bot 06/18/17 Benztropine Mesylate [Cogentin -] 2 mg PO BID #60 tablet 08/12/17 Fluphenazine HCl [Prolixin -] 10 mg PO BID #60 tablet 08/12/17 Quetiapine Fumarate [Seroquel] 100 mg PO HS #30 tablet 08/12/17 Metformin HCl 500 mg PO BID 08/13/17 Naproxen [Naprosyn -] 500 mg PO BID 08/13/17 Amlodipine Besylate [Norvasc -] 10 mg PO DAILY #30 tablet 08/15/17 Gabapentin [Neurontin -] 100 mg PO Q8H #90 capsule 08/15/17 Tamsulosin HCl [Flomax -] 0.4 mg PO DAILY@0830 #30 cap.er.24h 08/15/17 - Diagnosis (1) Alcohol dependence with uncomplicated withdrawal Status: Acute (2) Arthritis Status: Chronic (3) BPH (benign prostatic hyperplasia) Status: Chronic Qualifiers: Lower urinary tract symptom presence: symptoms present Lower urinary tract symptom detail: urinary hesitancy Qualified Code(s): N40.1 - Benign prostatic hyperplasia with lower urinary tract symptoms; R39.11 - Hesitancy of micturition ; R39.11 - Hesitancy of micturition (4) Essential hypertension Status: Chronic (5) GERD (gastroesophageal reflux disease) Status: Chronic Qualifiers: Esophagitis presence: without esophagitis Qualified Code(s): K21.9 - Gastro -esophageal reflux disease without esophagitis (6) Neuropathy Status: Chronic (7) Nicotine dependence Status: Chronic Qualifiers: Nicotine product type: cigarettes Substance use status: uncomplicated Qualified Code(s): F17.210 - Nicotine dependence, cigarettes, uncomplicated (8) Use of cane as ambulatory aid Status: Chronic (9) Asthma Status: Chronic Qualifiers: Asthma severity: mild Asthma complication type: uncomplicated - AMA Did Patient Leave Against Medical Advice: No
== END 2017-08-15 09:38 | disposition home or self-care (01) | DRG 775 ==
LOC: YASAS 09:37 → Y3N 12:26
PROVIDERS: ADMIT Internal Medicine; ATTEND Internal Medicine
PROC: HZ2ZZZZ Detoxification Services for Substance Abuse Treatment (ICD-10-PCS; principal; 2017-08-11)
DX: F10.230 Alcohol dependence with withdrawal, uncomplicated (principal); F10.282 Alcohol dependence with alcohol-induced sleep disorder; F17.210 Nicotine dependence, cigarettes, uncomplicated; F20.0 Paranoid schizophrenia; I10 Essential (primary) hypertension; M19.90 Unspecified osteoarthritis, unspecified site; N40.1 Benign prostatic hyperplasia with lower urinary tract symptoms; K21.9 Gastro-esophageal reflux disease without esophagitis; G62.9 Polyneuropathy, unspecified; J45.909 Unspecified asthma, uncomplicated; E11.9 Type 2 diabetes mellitus without complications; R04.0 Epistaxis; R26.2 Difficulty in walking, not elsewhere classified; Z99.89 Dependence on other enabling machines and devices; Z87.438 Personal history of other diseases of male genital organs; Z91.14 Patient's other noncompliance with medication regimen
CPT/HCPCS: 36415; 80053; 81003; 81015; 82962; 85027; 86593; 87389; 93005; 93010; 94640

== ENCOUNTER 2018-07-06 12:53 | Inpatient (IN) | payer OTHER ==
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
[2018-07-06 14:27] VITALS: BMI 27.6
[2018-07-06] MEDS ORDERED: guaiFENesin/D-METHORPHAN HB 10 ML UNIT-DOSE CUPS PO PRN (14:37)
[2018-07-06] MEDS ORDERED: MAG HYDROX/AL HYDROX/SIMETH 30 ML UNIT-DOSE CUP PO PRN (14:37)
[2018-07-06] MEDS ORDERED: NICOTINE POLACRILEX 2 MG GUM BUC PRN (14:37)
[2018-07-06] MEDS ORDERED: MENTHOL/PHENOL 1 EACH UD MM PRN (14:37)
[2018-07-06] MEDS ORDERED: MAGNESIUM CITRATE 300 ML BOTTLE PO PRN (14:37)
[2018-07-06] MEDS ORDERED: P-EPHED 60MG/TRIPROLIDI 2.5MG TABLET PO PRN (14:37)
[2018-07-06] MEDS ORDERED: MAGNESIUM HYDROX 2400MG/30ML ORAL SUSPENSION 30 ML CUP PO PRN (14:37)
[2018-07-06] MEDS ORDERED: LOPERAMIDE HCL 2 MG CAPSULE PO PRN (14:37)
[2018-07-06] MEDS ORDERED: chlordiazePOXIDE HCL 25 MG CAPSULE PO PRN (14:37)
[2018-07-06] MEDS: chlordiazePOXIDE HCL 25 MG CAPSULE PO SCH ×2 (19:35→23:48)
[2018-07-06] MEDS ORDERED: MELATONIN 5 MG TABLETS PO PRN (22:00)
[2018-07-06] MEDS: THIAMINE HCL 100 MG TABLET (FP) PO SCH (23:47)
[2018-07-07] MEDS: chlordiazePOXIDE HCL 25 MG CAPSULE PO SCH ×3 (06:36→18:30)
[2018-07-07] MEDS: IBUPROFEN 400 MG TABLET (FP) PO PRN (06:47)
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
--- NOTE | 2018-07-07 09:15 | PN ---
[facility] CIWA - CIWA Score Nausea/Vomitin-Mild Nausea/No Vomiting Muscle Tremors: 4-Moderate,w/Arms Extend Anxiety: 2 Agitation: 2 Paroxysmal Sweats: 1-Minimal Palms Moist Orientation: 1-Uncertain about Date (to date of the week) Tacttile Disturbances: 0-None Auditory Disturbances: 0-None Visual Disturbances: 0-None Headache: 2-Mild CIWA-Ar Total Score: 13 [facility] Progress Note (SOAP) Subjective: tremor ambulate with cane sweat stuffy nose Objective: 07/07/18 09:14 Vital Signs Temperature 98.2 F 07/07/18 03:00 Pulse Rate 85 07/07/18 03:00 Respiratory Rate 18 07/07/18 03:30 Blood Pressure 138/79 07/07/18 03:00 O2 Sat by Pulse Oximetry (%) Laboratory Last Values POC Glucometer 115 UNITS (80-120) 07/07/18 06:35 lab pending Assessment: 07/07/18 09:15 alcohol withdrawal diabetes II Plan: continue alcohol detox regimen
[2018-07-07] MEDS: PRENATAL VITAMINS W/ FOLIC ACID TABLET (FP) PO SCH (10:11)
[2018-07-07] MEDS: SODIUM CHLORIDE NASAL SPRAY 44 ML BOTTLE NS SCH ×2 (10:13→15:09)
[2018-07-07 10:43] LABS: HEMOGLOBIN 12.6 GM/dL (11.7-16.9); MCH 28.1 pg (25.7-33.7); MCHC 32.2 g/dl (32.0-35.9); MEAN CELL VOLUME 87.4 fl (80-96); MEAN PLT VOLUME 7.6 fl (7.5-11.1); PLATELET COUNT 315 K/MM3 (134-434); RBC 4.47 M/mm3 (4.00-5.60); RDW 14.3 % (11.9-15.9); WHITE BLOOD COUNT 4.4 K/mm3 (4.0-10.0)
[2018-07-07 11:07] LABS: ALBUMIN 3.4 g/dl (3.4-5.0); ALK PHOS 85 U/L (45-117); ANION GAP 9 MMOL/L (8-16); BILIRUBIN,TOTAL 0.9 mg/dL (0.2-1); BLOOD UREA NITROGEN 8 mg/dL (7-18); CALCIUM 8.4 mg/dL (8.5-10.1); CHLORIDE 93 mmol/L (98-107); CO2 24 mmol/L (21-32); CREATININE 0.9 mg/dL (0.55-1.3); GLUCOSE,RANDOM 155 mg/dL (74-106); SGOT/AST 17 U/L (15-37); SGPT/ALT 18 U/L (13-61); SODIUM 126 mmol/L (136-145); TOT PROT 6.9 g/dl (6.4-8.2)
[2018-07-07] MEDS: BENZTROPINE MESYLATE 1 MG TABLET (FP) PO SCH (11:40)
[2018-07-07] MEDS ORDERED: FLU VACCINE QUAD 60 MCG/0.5 ML (MDV 18-19) IM ONE (12:00)
[2018-07-07] MEDS: ASCORBIC ACID 500 MG TABLET (FP) PO SCH (14:00)
[2018-07-08] MEDS: THIAMINE HCL 100 MG TABLET (FP) PO SCH ×2 (00:24→22:26)
[2018-07-08] MEDS: SODIUM CHLORIDE NASAL SPRAY 44 ML BOTTLE NS SCH ×4 (00:24→22:27)
[2018-07-08] MEDS: BENZTROPINE MESYLATE 1 MG TABLET (FP) PO SCH ×3 (00:24→22:27)
[2018-07-08] MEDS: chlordiazePOXIDE HCL 25 MG CAPSULE PO SCH ×3 (00:25→10:11)
[2018-07-08] MEDS: IBUPROFEN 400 MG TABLET (FP) PO PRN ×2 (06:28→17:36)
--- NOTE | 2018-07-08 09:59 | EKG ---
Test Reason : Blood Pressure : / mmHG Vent. Rate : 069 BPM Atrial Rate : 069 BPM P-R Int : 180 ms QRS Dur : 086 ms QT Int : 408 ms P-R-T Axes : 057 -22 070 degrees QTc Int : 437 ms NORMAL SINUS RHYTHM POSSIBLE LEFT ATRIAL ENLARGEMENT BORDERLINE ECG WHEN COMPARED WITH ECG OF 11-AUG-2017 14:39, NO SIGNIFICANT CHANGE WAS FOUND Confirmed by GONZALO BYRD MD ([id number]) on 07/08/2018 9:58:51 AM Referred By: Prasanth BERNABE Confirmed By:GONZALO BYRD MD
[2018-07-08] MEDS: PRENATAL VITAMINS W/ FOLIC ACID TABLET (FP) PO SCH (10:11)
--- NOTE | 2018-07-08 10:12 | PN ---
[facility] CIWA - CIWA Score Nausea/Vomitin-No Nausea/No Vomiting Muscle Tremors: 1-None Visible, but [place] Anxiety: 3 Agitation: 3 Paroxysmal Sweats: 1-Minimal Palms Moist Orientation: 0-Oriented Tacttile Disturbances: 2-Mild Itch/Numbness/Burn Auditory Disturbances: 0-None Visual Disturbances: 0-None Headache: 0-None Present CIWA-Ar Total Score: 10 [facility] Progress Note (SOAP) Subjective: PATIENT C/O NIGHT SWEATS, SHAKES, ANXIETY, RESTLESS AT TIME. Objective: 07/08/18 10:10 Vital Signs Temperature 98.1 F 07/08/18 08:59 Pulse Rate 94 H 07/08/18 08:59 Respiratory Rate 18 07/08/18 08:59 Blood Pressure 137/64 07/08/18 08:59 O2 Sat by Pulse Oximetry (%) Vital Signs Temperature 98.1 F 07/08/18 08:59 Pulse Rate 94 H 07/08/18 08:59 Respiratory Rate 18 07/08/18 08:59 Blood Pressure 137/64 07/08/18 08:59 O2 Sat by Pulse Oximetry (%) Laboratory Tests 07/06/18 07/07/18 07/07/18 14:44 06:35 07:30 WBC 4.4 RBC 4.47 Hgb 12.6 Hct 39.0 MCV 87.4 MCH 28.1 MCHC 32.2 RDW 14.3 Plt Count 315 D MPV 7.6 D Sodium Potassium Chloride Carbon Dioxide Anion Gap BUN Creatinine Creat Clearance w eGFR POC Glucometer 122 115 Random Glucose Calcium Total Bilirubin AST ALT Alkaline Phosphatase Total Protein Albumin RPR Titer HIV 1&2 Antibody Screen HIV P24 Antigen 07/07/18 07/07/18 07/07/18 07:30 07:30 07:30 WBC RBC Hgb Hct MCV MCH MCHC RDW Plt Count MPV Sodium 126 L Potassium 4.0 Chloride 93 L Carbon Dioxide 24 Anion Gap 9 BUN 8 Creatinine 0.9 Creat Clearance w eGFR > 60 POC Glucometer Random Glucose 155 H Calcium 8.4 L Total Bilirubin 0.9 AST 17 ALT 18 Alkaline Phosphatase 85 Total Protein 6.9 Albumin 3.4 RPR Titer Nonreactive HIV 1&2 Antibody Screen Negative HIV P24 Antigen Negative 07/08/18 06:16 WBC RBC Hgb Hct MCV MCH MCHC RDW Plt Count MPV Sodium Potassium Chloride Carbon Dioxide Anion Gap BUN Creatinine Creat Clearance w eGFR POC Glucometer 97 Random Glucose Calcium Total Bilirubin AST ALT Alkaline Phosphatase Total Protein Albumin RPR Titer HIV 1&2 Antibody Screen HIV P24 Antigen PE: ALERT AND ORIENTED X 3 SKIN WARM, MILD MOISTURE EXT FULL ROM, +MILD TREMORS FELT AMB WITH CANE Assessment: 07/08/18 10:11 WITHDRAWAL SX HYPONATREMIA, ASYMPTOMATIC Plan: ENCOURAGE ORAL FLUIDS CONTINUE DETOX REPEAT BMP TODAY
[2018-07-08] MEDS: ACETAMINOPHEN 325 MG TABLET (FP) PO PRN ×2 (10:13→22:29)
[2018-07-08] MEDS ORDERED: ALBUTEROL SO4 8 GM HFA INHALER IH ONE (10:15)
[2018-07-08] MEDS: ALBUTEROL SO4 8 GM HFA INHALER IH PRN (10:16)
[2018-07-08] MEDS: ASCORBIC ACID 500 MG TABLET (FP) PO SCH (11:00)
[2018-07-08 15:12] LABS: ANION GAP 6 MMOL/L (8-16); BLOOD UREA NITROGEN 13 mg/dL (7-18); CALCIUM 8.6 mg/dL (8.5-10.1); CHLORIDE 92 mmol/L (98-107); CO2 29 mmol/L (21-32); CREATININE 0.7 mg/dL (0.55-1.3); GLUCOSE,RANDOM 79 mg/dL (74-106); POTASSIUM 4.5 mmol/L (3.5-5.1); SODIUM 128 mmol/L (136-145)
[2018-07-08] MEDS: chlordiazePOXIDE 5 MG CAPSULE PO SCH ×2 (17:36→22:27)
[2018-07-09] MEDS: chlordiazePOXIDE 5 MG CAPSULE PO SCH ×2 (05:34→10:27)
[2018-07-09] MEDS: SODIUM CHLORIDE NASAL SPRAY 44 ML BOTTLE NS SCH ×3 (05:34→22:12)
[2018-07-09] MEDS: BENZTROPINE MESYLATE 1 MG TABLET (FP) PO SCH ×2 (10:26→22:12)
[2018-07-09] MEDS: PRENATAL VITAMINS W/ FOLIC ACID TABLET (FP) PO SCH (10:27)
[2018-07-09] MEDS: ALBUTEROL SO4 8 GM HFA INHALER IH PRN (10:32)
[2018-07-09] MEDS: ASCORBIC ACID 500 MG TABLET (FP) PO SCH (10:35)
--- NOTE | 2018-07-09 11:18 | PN ---
[facility] Progress Note (SOAP) Subjective: right knee pain sweats interrupted sleep Objective: 07/09/18 11:17 Vital Signs Temperature 96.4 F L 07/09/18 09:13 Pulse Rate 91 H 07/09/18 09:13 Respiratory Rate 16 07/09/18 09:13 Blood Pressure 120/71 07/09/18 09:13 O2 Sat by Pulse Oximetry (%) aaox3 ambulating no acute distress Assessment: 07/09/18 11:17 withdrawal sx Plan: continue detox increase fluids analgesic balm ordered aneta bandage to apply to right knee prn d/c in am
[2018-07-09] MEDS: METHYL SALICYLATE/MENTHOL OINT 30 GM TUBE TP SCH ×2 (12:00→22:15)
[2018-07-09] MEDS: chlordiazePOXIDE HCL 10 MG CAPSULE PO SCH ×2 (17:24→22:12)
[2018-07-09] MEDS: ACETAMINOPHEN 325 MG TABLET (FP) PO PRN (17:25)
[2018-07-09] MEDS: THIAMINE HCL 100 MG TABLET (FP) PO SCH (22:12)
[2018-07-10] MEDS: chlordiazePOXIDE HCL 10 MG CAPSULE PO SCH (05:40)
[2018-07-10] MEDS: SODIUM CHLORIDE NASAL SPRAY 44 ML BOTTLE NS SCH (05:41)
[2018-07-10 09:00] VITALS: BP 140/88; PULSE 95; TEMP 98.6
[2018-07-10] MEDS: METHYL SALICYLATE/MENTHOL OINT 30 GM TUBE TP SCH (09:15)
[2018-07-10] MEDS: BENZTROPINE MESYLATE 1 MG TABLET (FP) PO SCH (09:16)
[2018-07-10] MEDS: PRENATAL VITAMINS W/ FOLIC ACID TABLET (FP) PO SCH (09:16)
--- NOTE | 2018-07-10 09:43 | PN ---
[facility] Progress Note (SOAP) Subjective: I'm better Objective: 07/10/18 09:42 Vital Signs Temperature 98.6 F 07/10/18 08:59 Pulse Rate 95 H 07/10/18 08:59 Respiratory Rate 18 07/10/18 08:59 Blood Pressure 140/88 07/10/18 08:59 O2 Sat by Pulse Oximetry (%) Laboratory Tests 07/06/18 07/07/18 07/07/18 14:44 06:35 07:30 WBC 4.4 RBC 4.47 Hgb 12.6 Hct 39.0 MCV 87.4 MCH 28.1 MCHC 32.2 RDW 14.3 Plt Count 315 D MPV 7.6 D Sodium Potassium Chloride Carbon Dioxide Anion Gap BUN Creatinine Creat Clearance w eGFR POC Glucometer 122 115 Random Glucose Calcium Total Bilirubin AST ALT Alkaline Phosphatase Total Protein Albumin RPR Titer HIV 1&2 Antibody Screen HIV P24 Antigen 07/07/18 07/07/18 07/07/18 07:30 07:30 07:30 WBC RBC Hgb Hct MCV MCH MCHC RDW Plt Count MPV Sodium 126 L Potassium 4.0 Chloride 93 L Carbon Dioxide 24 Anion Gap 9 BUN 8 Creatinine 0.9 Creat Clearance w eGFR > 60 POC Glucometer Random Glucose 155 H Calcium 8.4 L Total Bilirubin 0.9 AST 17 ALT 18 Alkaline Phosphatase 85 Total Protein 6.9 Albumin 3.4 RPR Titer Nonreactive HIV 1&2 Antibody Screen Negative HIV P24 Antigen Negative 07/08/18 07/08/18 07/09/18 06:16 13:40 05:38 WBC RBC Hgb Hct MCV MCH MCHC RDW Plt Count MPV Sodium 128 L Potassium 4.5 Chloride 92 L Carbon Dioxide 29 Anion Gap 6 L BUN 13 Creatinine 0.7 Creat Clearance w eGFR > 60 POC Glucometer 97 105 Random Glucose 79 Calcium 8.6 Total Bilirubin AST ALT Alkaline Phosphatase Total Protein Albumin RPR Titer HIV 1&2 Antibody Screen HIV P24 Antigen 07/10/18 05:42 WBC RBC Hgb Hct MCV MCH MCHC RDW Plt Count MPV Sodium Potassium Chloride Carbon Dioxide Anion Gap BUN Creatinine Creat Clearance w eGFR POC Glucometer 105 Random Glucose Calcium Total Bilirubin AST ALT Alkaline Phosphatase Total Protein Albumin RPR Titer HIV 1&2 Antibody Screen HIV P24 Antigen pt aox3 in nad ambulating Assessment: 07/10/18 09:43 detox completed Plan: d/c today to home
--- NOTE | 2018-07-10 09:46 | DS ---
[facility] Detox Discharge Summary Admission Date: 07/06/18 Discharge Date: 07/10/18 - History Present History: Alcohol Dependence - Physical Exam Results Vital Signs: Vital Signs Temperature 98.6 F 07/10/18 08:59 Pulse Rate 95 H 07/10/18 08:59 Respiratory Rate 18 07/10/18 08:59 Blood Pressure 140/88 07/10/18 08:59 O2 Sat by Pulse Oximetry (%) - Treatment Hospital Course: Detox Protocol Followed, Detoxed Safely, Responded well, Discharged Condition Good - Medication Discharge Medications: Ambulatory Orders Albuterol Sulfate Inhaler - [Ventolin HFA Inhaler -] 2 inh PO Q4H PRN #1 inhaler 06/18/17 Fluticasone Prop 0.05% Nasal [Flonase -] 1 spray NS DAILY #1 bot 06/18/17 Benztropine Mesylate [Cogentin -] 2 mg PO BID #60 tablet 08/12/17 Naproxen [Naprosyn -] 500 mg PO BID 08/13/17 metFORMIN HCL [Metformin HCl] 500 mg PO BID 08/13/17 Amlodipine Besylate [Norvasc -] 10 mg PO DAILY #30 tablet 08/15/17 Gabapentin [Neurontin -] 100 mg PO Q8H #90 capsule 08/15/17 Tamsulosin HCl [Flomax -] 0.4 mg PO DAILY@0830 #30 cap.er.24h 08/15/17 Fluphenazine HCl [Prolixin -] 10 mg PO TID 07/06/18 - Diagnosis (1) Alcohol dependence with uncomplicated withdrawal Current Visit: Yes Status: Chronic (2) Arthritis Current Visit: Yes Status: Chronic (3) BPH (benign prostatic hyperplasia) Current Visit: Yes Status: Chronic Qualifiers: Lower urinary tract symptom presence: symptoms present Lower urinary tract symptom detail: urinary hesitancy Qualified Code(s): N40.1 - Benign prostatic hyperplasia with lower urinary tract symptoms; R39.11 - Hesitancy of micturition (4) Blind left eye Current Visit: Yes Status: Chronic (5) Diabetes mellitus type 2, diet-controlled Current Visit: Yes Status: Chronic (6) Neuropathy Current Visit: Yes Status: Chronic (7) Nicotine dependence Current Visit: Yes Status: Chronic Qualifiers: Nicotine product type: cigarettes Substance use status: uncomplicated Qualified Code(s): F17.210 - Nicotine dependence, cigarettes, uncomplicated (8) Essential hypertension Current Visit: No Status: Chronic (9) GERD (gastroesophageal reflux disease) Current Visit: No Status: Chronic Qualifiers: Esophagitis presence: without esophagitis Qualified Code(s): K21.9 - Gastro -esophageal reflux disease without esophagitis - AMA Did Patient Leave Against Medical Advice: No
== END 2018-07-10 09:54 | disposition home or self-care (01) | DRG 775 ==
LOC: YASAS 12:53 → Y6N 15:12
PROC: HZ2ZZZZ Detoxification Services for Substance Abuse Treatment (ICD-10-PCS; principal; 2018-07-06)
DX: F10.230 Alcohol dependence with withdrawal, uncomplicated (principal); F10.282 Alcohol dependence with alcohol-induced sleep disorder; F17.210 Nicotine dependence, cigarettes, uncomplicated; F20.0 Paranoid schizophrenia; I10 Essential (primary) hypertension; M13.862 Other specified arthritis, left knee; M13.861 Other specified arthritis, right knee; N40.0 Benign prostatic hyperplasia without lower urinary tract symptoms; H54.40 Blindness, one eye, unspecified eye; K46.0 Unspecified abdominal hernia with obstruction, without gangrene; E11.9 Type 2 diabetes mellitus without complications; G62.9 Polyneuropathy, unspecified; K21.9 Gastro-esophageal reflux disease without esophagitis; K08.409 Partial loss of teeth, unspecified cause, unspecified class; E87.1 Hypo-osmolality and hyponatremia; J45.909 Unspecified asthma, uncomplicated; R26.2 Difficulty in walking, not elsewhere classified; Z99.89 Dependence on other enabling machines and devices; Z87.438 Personal history of other diseases of male genital organs; Z91.14 Patient's other noncompliance with medication regimen
CPT/HCPCS: 36415; 80048; 80053; 82962; 85027; 86593; 87389; 90688; 93005; 93010; G0008

== ENCOUNTER 2018-10-17 09:55 | Inpatient (IN) | payer OTHER ==
[2018-10-17 10:22] VITALS: BMI 29.7
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
[2018-10-17] MEDS ORDERED: hydrOXYzine PAMOATE 25 MG CAPSULE (FP) PO PRN (12:39)
[2018-10-17] MEDS ORDERED: chlordiazePOXIDE HCL 25 MG CAPSULE PO PRN (12:39)
[2018-10-17] MEDS ORDERED: MAG HYDROX/AL HYDROX/SIMETH 30 ML UNIT-DOSE CUP PO PRN (12:39)
[2018-10-17] MEDS ORDERED: ACETAMINOPHEN 325 MG TABLET (FP) PO PRN ×2 (12:39)
[2018-10-17] MEDS ORDERED: IBUPROFEN 400 MG TABLET (FP) PO PRN (12:39)
[2018-10-17] MEDS ORDERED: MAGNESIUM CITRATE 300 ML BOTTLE PO PRN (12:39)
[2018-10-17] MEDS ORDERED: BISMUTH SUBSALICYLATE 262 MG/15 ML BTL PO PRN (12:39)
[2018-10-17] MEDS ORDERED: METHOCARBAMOL 500 MG TABLET PO PRN (12:39)
[2018-10-17] MEDS ORDERED: MAGNESIUM HYDROX 2400MG/30ML ORAL SUSPENSION 30 ML CUP PO PRN (12:39)
[2018-10-17] MEDS ORDERED: MENTHOL/PHENOL 1 EACH UD MM PRN (12:39)
[2018-10-17] MEDS ORDERED: ALBUTEROL SO4 8 GM HFA INHALER IH PRN (12:43)
[2018-10-17] MEDS: GABAPENTIN 100 MG CAPSULE (FP) PO SCH ×2 (14:56→23:01)
[2018-10-17] MEDS: chlordiazePOXIDE HCL 25 MG CAPSULE PO SCH ×2 (18:29→23:01)
[2018-10-17] MEDS: metFORMIN HCL 500 MG TABLET (FP) PO SCH (18:29)
[2018-10-17] MEDS: THIAMINE HCL 100 MG TABLET (FP) PO SCH (23:01)
[2018-10-17] MEDS: MELATONIN 5 MG TABLETS PO PRN (23:03)
[2018-10-18] MEDS: GABAPENTIN 100 MG CAPSULE (FP) PO SCH ×3 (06:04→22:46)
[2018-10-18] MEDS: metFORMIN HCL 500 MG TABLET (FP) PO SCH ×2 (06:04→17:40)
[2018-10-18] MEDS: chlordiazePOXIDE HCL 25 MG CAPSULE PO SCH ×4 (06:05→22:46)
[2018-10-18] MEDS: TAMSULOSIN HCL 0.4 MG CAP PO SCH (08:29)
[2018-10-18 10:25] LABS: ALBUMIN 4.2 g/dl (3.4-5.0); ALK PHOS 104 U/L (45-117); ANION GAP 5 MMOL/L (8-16); BILIRUBIN,TOTAL 0.4 mg/dL (0.2-1); BLOOD UREA NITROGEN 8 mg/dL (7-18); CALCIUM 9.2 mg/dL (8.5-10.1); CHLORIDE 96 mmol/L (98-107); CO2 30 mmol/L (21-32); CREATININE 0.7 mg/dL (0.55-1.3); GLUCOSE,RANDOM 83 mg/dL (74-106); POTASSIUM 4.7 mmol/L (3.5-5.1); SGOT/AST 25 U/L (15-37); SGPT/ALT 26 U/L (13-61); SODIUM 130 mmol/L (136-145); TOT PROT 7.9 g/dl (6.4-8.2)
[2018-10-18] MEDS: PRENATAL VITAMINS W/ FOLIC ACID TABLET (FP) PO SCH (10:29)
[2018-10-18] MEDS: amLODIPine BESYLATE 10 MG TABLET (FP) PO SCH (10:29)
[2018-10-18 10:32] LABS: HEMATOCRIT 41.5 % (35.4-49); HEMOGLOBIN 13.4 GM/dL (11.7-16.9); MCH 28.2 pg (25.7-33.7); MCHC 32.3 g/dl (32.0-35.9); MEAN CELL VOLUME 87.3 fl (80-96); MEAN PLT VOLUME 7.9 fl (7.5-11.1); PLATELET COUNT 297 K/MM3 (134-434); RBC 4.75 M/mm3 (4.00-5.60); WHITE BLOOD COUNT 4.2 K/mm3 (4.0-10.0)
--- NOTE | 2018-10-18 15:07 | CONSULT ---
[facility] Psychiatric Consult - Data Date of interview: 10/18/18 Admission source: [facility] Identifying data: Readmission to [facility] for this 57 y/o AA male self- referred for detoxification (alcohol). Examined at [address] [place] [address]. Patient is single without children, homeless (resides in a correction), unemployed and supported on SSI benefits. Substance Abuse History: Confirmed by patient in this interview. Details in current [facility] as follows : Smoking history: Current every day smoker. Have you smoked in the past 12 months: Yes. Aproximately how many cigarettes per day: 10. Cigars Per Day: 0. Hx Chewing Tobacco Use: No. Initiated information on smoking cessation: Yes. 'Breaking Loose' booklet given: 10/17/18. - Substance & Tx. History. Hx Alcohol Use: Yes. Hx Substance Use: No. Substance Use Type : Alcohol. Hx Substance Use Treatment: No. - Substances Abused. Alcohol. Route: Oral. Frequency: Daily. Amount used: 4-5 22 OZ CANS. Age of first use : 7. Date of Last Use: 10/17/18 Medical History: Remarkable for hepatitis C, GERD, history of eye surgery ( detached retina in left eye), hypertension, bronchial asthma, BPH (benign prostatic hyperplasia), arthritis (walks with cane), diabetes mellitus, peripheral neuropathy and past treatment for syphilis + gonorrhea. Psychiatric History: Patient is a good historian. Diagnosed with Paranoid Schizophrenia and presenting with a history of multiple psychiatric hospitalizations ([facility], [facility], [facility], [facility], [facility], [facility], [facility]). Mr East indicates that he gets his psychiatric OPD care at the [facility] mental health clinic in the [place]. Patient is maintained on a regimen of prolixin 10 mg/bid + cogentin 2 mg/bid ( self-report). Endorses fair adherence to medications. Patient denies history of suicide attempts. Physical/Sexual Abuse/Trauma History: Patient denies. Additional Comment: Drug Screen is negative. Mental Status Exam - Mental Status Exam Alert and Oriented to: Time, Place, Person Cognitive Function: Good Patient Appearance: Disheveled (appears much older than stated age) Mood: Hopeful, Euthymic Affect: Appropriate, Normal Range Patient Behavior: Fatigued, Cooperative Speech Pattern: Clear, Appropriate Voice Loudness: Moderately Soft/Quiet Thought Process: Goal Oriented Thought Disorder: Not Present Hallucinations: Denies Suicidal Ideation: Denies Homicidal Ideation: Denies Insight/Judgement: Poor Sleep: Well Appetite: Good Muscle strength/Tone: Normal Gait/Station: Other (walks with a cane ; difficult ambulation; patient requested a wheelchair for easier mobility) Psychiatric Findings - Problem List ([place] 1, 2,3) (1) Alcohol dependence with uncomplicated withdrawal Current Visit: Yes Status: Acute (2) Nicotine dependence Current Visit: Yes Status: Chronic Qualifiers: Nicotine product type: cigarettes Substance use status: uncomplicated Qualified Code(s): F17.210 - Nicotine dependence, cigarettes, uncomplicated (3) Paranoid schizophrenia Current Visit: Yes Status: Chronic - Initial Treatment Plan Initial Treatment Plan: Records from [facility] : revisited. Psychoeducation. Support. Sleep hygiene. Detoxification in progress. AA meetings. Relapse prevention : discussed with the patient. Medications resumed at patient's specific request : prolixin 10 mg po bid + cogentin 2 mg po bid. Side effects/ benefits of both drugs are reviewed. Mr East is reminded of the risk of tardive dyskinesia, dystonias, akathisia, neuroleptic malignant syndrome, anticholinergic issues (dry mouth, constipation, blurred vision, urinary hesitancy). Conent (verbal) granted to MD. Henry.
--- NOTE | 2018-10-18 16:17 | PN ---
S CIWA - CIWA Score Nausea/Vomitin-No Nausea/No Vomiting Muscle Tremors: 3 Anxiety: 3 Agitation: 2 Paroxysmal Sweats: 3 Orientation: 2-Disoriented Date<2 days Tacttile Disturbances: 1-Very Mild Itch/Numbness Auditory Disturbances: 0-None Visual Disturbances: 2-Mild Sensitivity Headache: 0-None Present CIWA-Ar Total Score: 16 BHS Progress Note (SOAP) Subjective: Tremors, Anxious, Sweating. Objective: PATIENT A & O X 2 (UNCERTAIN ABOUT CURRENT DAY / DATE). PATIENT OBSERVED AMBULATING ON UNIT WITH ASSISTANCE OF A CANE. IN NO ACUTE DISTRESS. 10/18/18 16:15 Vital Signs Temperature 97.5 F L 10/18/18 13:00 Pulse Rate 86 10/18/18 13:00 Respiratory Rate 18 10/18/18 13:00 Blood Pressure 122/76 10/18/18 13:00 O2 Sat by Pulse Oximetry (%) Laboratory Tests 10/17/18 10/17/18 10/18/18 11:55 16:25 06:00 WBC 4.2 RBC 4.75 Hgb 13.4 Hct 41.5 MCV 87.3 MCH 28.2 MCHC 32.3 RDW 16.0 H Plt Count 297 MPV 7.9 Sodium Potassium Chloride Carbon Dioxide Anion Gap BUN Creatinine Creat Clearance w eGFR POC Glucometer 111 100 Random Glucose Calcium Total Bilirubin AST ALT Alkaline Phosphatase Total Protein Albumin RPR Titer 10/18/18 10/18/18 10/18/18 06:00 06:00 06:03 WBC RBC Hgb Hct MCV MCH MCHC RDW Plt Count MPV Sodium 130 L Potassium 4.7 Chloride 96 L Carbon Dioxide 30 Anion Gap 5 L BUN 8 Creatinine 0.7 Creat Clearance w eGFR 116.24 POC Glucometer 90 Random Glucose 83 Calcium 9.2 Total Bilirubin 0.4 AST 25 ALT 26 Alkaline Phosphatase 104 Total Protein 7.9 Albumin 4.2 RPR Titer Nonreactive LABS NOTED. Assessment: 10/18/18 16:16 WITHDRAWAL SYMPTOMS. Plan: CONTINUE DETOX. INCREASE DAILY PO FLUID INTAKE.
[2018-10-18] MEDS: THIAMINE HCL 100 MG TABLET (FP) PO SCH (22:44)
[2018-10-18] MEDS: BENZTROPINE MESYLATE 1 MG TABLET (FP) PO SCH (22:46)
[2018-10-18] MEDS: MELATONIN 5 MG TABLETS PO PRN (22:47)
[2018-10-19] MEDS: chlordiazePOXIDE HCL 25 MG CAPSULE PO SCH ×2 (05:07→10:51)
[2018-10-19] MEDS: metFORMIN HCL 500 MG TABLET (FP) PO SCH ×2 (06:03→18:13)
[2018-10-19] MEDS: GABAPENTIN 100 MG CAPSULE (FP) PO SCH ×3 (06:03→23:06)
[2018-10-19] MEDS: TAMSULOSIN HCL 0.4 MG CAP PO SCH (10:51)
[2018-10-19] MEDS: amLODIPine BESYLATE 10 MG TABLET (FP) PO SCH (10:51)
[2018-10-19] MEDS: PRENATAL VITAMINS W/ FOLIC ACID TABLET (FP) PO SCH (10:52)
[2018-10-19] MEDS: BENZTROPINE MESYLATE 1 MG TABLET (FP) PO SCH ×2 (10:52→23:00)
--- NOTE | 2018-10-19 16:26 | PN ---
S CIWA - CIWA Score Nausea/Vomitin-Mild Nausea/No Vomiting Muscle Tremors: 3 Anxiety: 1-Mildly Anxious Agitation: 3 Paroxysmal Sweats: 3 Orientation: 1-Uncertain about Date Tacttile Disturbances: 0-None Auditory Disturbances: 0-None Visual Disturbances: 0-None Headache: 0-None Present CIWA-Ar Total Score: 12 BHS Progress Note (SOAP) Subjective: Sweats Objective: 10/19/18 16:24 Noted in wheelchair wheeling self on unit States he uses walker normally A & O x 2, uncertain about date Not in acute distress Vital Signs Temperature 97.4 F L 10/19/18 06:01 Pulse Rate 78 10/19/18 09:52 Respiratory Rate 18 10/19/18 09:52 Blood Pressure 116/73 10/19/18 09:52 O2 Sat by Pulse Oximetry (%) Assessment: 10/19/18 16:25 Withdrawal sx Plan: Continue detox
[2018-10-19] MEDS ORDERED: chlordiazePOXIDE HCL 10 MG CAPSULE PO PRN (17:00)
[2018-10-19] MEDS: chlordiazePOXIDE HCL 10 MG CAPSULE PO SCH ×2 (18:13→23:00)
[2018-10-19] MEDS: THIAMINE HCL 100 MG TABLET (FP) PO SCH (23:00)
[2018-10-19] MEDS: MELATONIN 5 MG TABLETS PO PRN (23:07)
[2018-10-20] MEDS: chlordiazePOXIDE HCL 10 MG CAPSULE PO SCH (05:30)
[2018-10-20] MEDS: GABAPENTIN 100 MG CAPSULE (FP) PO SCH (06:14)
[2018-10-20] MEDS: metFORMIN HCL 500 MG TABLET (FP) PO SCH (06:15)
--- NOTE | 2018-10-20 08:53 | DS ---
[facility] Detox Discharge Summary Admission Date: 10/17/18 Discharge Date: 10/20/18 - History Present History: Alcohol Dependence Additional Comments: 57 years old male admitted on 10/17/18 for alcohol withdrawal stabilization completed detox regimen [facility] [place] Pertinent Past History: bring in medication list and lab report to aftercare appointment mediation adherence - Physical Exam Results Vital Signs: Vital Signs Temperature 96.5 F L 10/20/18 06:47 Pulse Rate 76 10/20/18 06:47 Respiratory Rate 17 10/20/18 06:47 Blood Pressure 129/83 10/20/18 06:47 O2 Sat by Pulse Oximetry (%) Pertinent Admission Physical Exam Findings: alcohol withdrawal sx Laboratory Last Values WBC 4.2 K/mm3 (4.0-10.0) 10/18/18 06:00 RBC 4.75 M/mm3 (4.00-5.60) 10/18/18 06:00 Hgb 13.4 GM/dL (11.7-16.9) 10/18/18 06:00 Hct 41.5 % (35.4-49) 10/18/18 06:00 MCV 87.3 fl (80-96) 10/18/18 06:00 MCH 28.2 pg (25.7-33.7) 10/18/18 06:00 MCHC 32.3 g/dl (32.0-35.9) 10/18/18 06:00 RDW 16.0 % (11.9-15.9) H 10/18/18 06:00 Plt Count 297 K/MM3 (134-434) 10/18/18 06:00 MPV 7.9 fl (7.5-11.1) 10/18/18 06:00 Sodium 130 mmol/L (136-145) L 10/18/18 06:00 Potassium 4.7 mmol/L (3.5-5.1) 10/18/18 06:00 Chloride 96 mmol/L (98-107) L 10/18/18 06:00 Carbon Dioxide 30 mmol/L (21-32) 10/18/18 06:00 Anion Gap 5 MMOL/L (8-16) L 10/18/18 06:00 BUN 8 mg/dL (7-18) 10/18/18 06:00 Creatinine 0.7 mg/dL (0.55-1.3) 10/18/18 06:00 Creat Clearance w eGFR 116.24 (>60) 10/18/18 06:00 POC Glucometer 89 UNITS (80-120) 10/20/18 05:29 Random Glucose 83 mg/dL (74-106) 10/18/18 06:00 Calcium 9.2 mg/dL (8.5-10.1) 10/18/18 06:00 Total Bilirubin 0.4 mg/dL (0.2-1) 10/18/18 06:00 AST 25 U/L (15-37) 10/18/18 06:00 ALT 26 U/L (13-61) 10/18/18 06:00 Alkaline Phosphatase 104 U/L (45-117) 10/18/18 06:00 Total Protein 7.9 g/dl (6.4-8.2) 10/18/18 06:00 Albumin 4.2 g/dl (3.4-5.0) 10/18/18 06:00 RPR Titer Nonreactive (NONREACTIVE) 10/18/18 06:00 lab noted - Treatment Hospital Course: Detox Protocol Followed, Detoxed Safely, Discharged Condition Good, Rehab Referral Accepted Patient has Accepted a Rehab Referral to: [facility] - Medication Discharge Medications: Ambulatory Orders Benztropine Mesylate [Cogentin -] 2 mg PO BID #60 tablet 08/12/17 metFORMIN HCL [Metformin HCl] 500 mg PO BID 08/13/17 Fluphenazine HCl [Prolixin -] 10 mg PO TID 07/06/18 Gabapentin [Neurontin -] 100 mg PO Q8H #90 capsule 07/10/18 Naproxen [Naprosyn -] 500 mg PO BID #30 tablet 07/10/18 Albuterol Sulfate Inhaler - [Ventolin HFA Inhaler -] 2 inh PO Q4H PRN #1 inhaler 10/20/18 Amlodipine Besylate [Norvasc -] 10 mg PO DAILY #30 tablet 10/20/18 Tamsulosin HCl [Flomax -] 0.4 mg PO DAILY@0830 #30 cap.er.24h 10/20/18 metFORMIN HCL [Glucophage -] 500 mg PO BID@0700,1630 #30 tablet 03/31/19 - Diagnosis (1) GERD (gastroesophageal reflux disease) Current Visit: Yes Status: Chronic Qualifiers: Esophagitis presence: without esophagitis Qualified Code(s): K21.9 - Gastro -esophageal reflux disease without esophagitis (2) Blind left eye Current Visit: No Status: Chronic (3) Hepatitis C Current Visit: Yes Status: Chronic Qualifiers: Viral hepatitis chronicity: carrier Qualified Code(s): B18.2 - Chronic viral hepatitis C (4) Diabetes mellitus type 2, diet-controlled Current Visit: Yes Status: Chronic (5) Asthma Current Visit: Yes Status: Chronic Qualifiers: Asthma severity: mild Asthma persistence: intermittent Asthma complication type: with status asthmaticus Qualified Code(s): J45.22 - Mild intermittent asthma with status asthmaticus (6) Essential hypertension Current Visit: Yes Status: Chronic (7) Nicotine dependence Current Visit: Yes Status: Acute Qualifiers: Nicotine product type: cigarettes Substance use status: in withdrawal Qualified Code(s): F17.213 - Nicotine dependence, cigarettes, with withdrawal (8) Alcohol dependence with uncomplicated withdrawal Current Visit: Yes Status: Acute (9) BPH (benign prostatic hyperplasia) Current Visit: Yes Status: Chronic Qualifiers: Lower urinary tract symptom presence: symptoms present Lower urinary tract symptom detail: urinary hesitancy Qualified Code(s): N40.1 - Benign prostatic hyperplasia with lower urinary tract symptoms; R39.11 - Hesitancy of micturition (10) Use of cane as ambulatory aid Current Visit: Yes Status: Chronic - AMA Did Patient Leave Against Medical Advice: No
[2018-10-20 09:53] VITALS: BP 126/84; PULSE 93; TEMP 97.3
[2018-10-20] MEDS: amLODIPine BESYLATE 10 MG TABLET (FP) PO SCH (10:35)
[2018-10-20] MEDS: PRENATAL VITAMINS W/ FOLIC ACID TABLET (FP) PO SCH (10:35)
[2018-10-20] MEDS: BENZTROPINE MESYLATE 1 MG TABLET (FP) PO SCH (10:35)
[2018-10-20] MEDS ORDERED: chlordiazePOXIDE HCL 10 MG CAPSULE PO SCH (17:00)
== END 2018-10-20 11:13 | disposition home or self-care (01) | DRG 775 ==
LOC: YASAS 09:55 → Y3N 12:31
PROVIDERS: ADMIT Surgery; ATTEND Surgery
PROC: HZ2ZZZZ Detoxification Services for Substance Abuse Treatment (ICD-10-PCS; principal; 2018-10-17)
DX: F10.230 Alcohol dependence with withdrawal, uncomplicated (principal); F17.210 Nicotine dependence, cigarettes, uncomplicated; F20.0 Paranoid schizophrenia; I10 Essential (primary) hypertension; J45.22 Mild intermittent asthma with status asthmaticus; G62.9 Polyneuropathy, unspecified; E11.9 Type 2 diabetes mellitus without complications; B18.2 Chronic viral hepatitis C; N40.0 Benign prostatic hyperplasia without lower urinary tract symptoms; H54.40 Blindness, one eye, unspecified eye; M06.9 Rheumatoid arthritis, unspecified; R26.89 Other abnormalities of gait and mobility; Z99.89 Dependence on other enabling machines and devices; Z86.19 Personal history of other infectious and parasitic diseases; Z91.81 History of falling
CPT/HCPCS: 36415; 80053; 82962; 85027; 86593

== ENCOUNTER 2018-12-01 19:35 | Inpatient (IN) | payer OTHER ==
[2018-12-01 21:12] VITALS: BMI 28.5
[2018-12-01] MEDS ORDERED: ACETAMINOPHEN 325 MG TABLET (FP) PO PRN ×2 (22:14)
[2018-12-01] MEDS ORDERED: hydrOXYzine PAMOATE 25 MG CAPSULE (FP) PO PRN (22:14)
[2018-12-01] MEDS ORDERED: MENTHOL/PHENOL 1 EACH UD MM PRN (22:14)
[2018-12-01] MEDS ORDERED: chlordiazePOXIDE HCL 25 MG CAPSULE PO PRN (22:14)
[2018-12-01] MEDS ORDERED: MELATONIN 5 MG TABLETS PO PRN (22:14)
[2018-12-01] MEDS ORDERED: MAGNESIUM CITRATE 300 ML BOTTLE PO PRN (22:14)
[2018-12-01] MEDS ORDERED: NICOTINE POLACRILEX 2 MG GUM BUC PRN (22:14)
[2018-12-01] MEDS ORDERED: MAG HYDROX/AL HYDROX/SIMETH 30 ML UNIT-DOSE CUP PO PRN (22:14)
[2018-12-01] MEDS ORDERED: BISMUTH SUBSALICYLATE 524 MG/30 ML UD PO PRN (22:14)
[2018-12-01] MEDS ORDERED: MAGNESIUM HYDROX 2400MG/30ML ORAL SUSPENSION 30 ML CUP PO PRN (22:14)
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
[2018-12-01] MEDS: chlordiazePOXIDE HCL 25 MG CAPSULE PO SCH (23:47)
[2018-12-01] MEDS ORDERED: cloNIDine HCL 0.1 MG TABLET PO ONE (23:57)
[2018-12-02] MEDS: HYDROCHLOROTHIAZIDE 25 MG TABLET (FP) PO SCH (07:39)
[2018-12-02] MEDS: GABAPENTIN 100 MG CAPSULE (FP) PO SCH ×3 (07:39→22:29)
[2018-12-02] MEDS: IBUPROFEN 400 MG TABLET (FP) PO PRN (07:40)
[2018-12-02] MEDS: metFORMIN HCL 500 MG TABLET (FP) PO SCH ×2 (07:40→17:56)
[2018-12-02] MEDS: chlordiazePOXIDE HCL 25 MG CAPSULE PO SCH ×4 (07:51→22:29)
[2018-12-02 09:57] LABS: ALBUMIN 3.7 g/dl (3.4-5.0); BILIRUBIN,TOTAL 1.1 mg/dL (0.2-1); CALCIUM 8.7 mg/dL (8.5-10.1); CREATININE 0.7 mg/dL (0.55-1.3); POTASSIUM 4.6 mmol/L (3.5-5.1)
[2018-12-02 10:11] LABS: HEMATOCRIT 41.8 % (35.4-49); HEMOGLOBIN 13.8 GM/dL (11.7-16.9); MCH 29.4 pg (25.7-33.7); MCHC 33.1 g/dl (32.0-35.9); MEAN CELL VOLUME 88.8 fl (80-96); MEAN PLT VOLUME 7.2 fl (7.5-11.1); PLATELET COUNT 343 K/MM3 (134-434); RBC 4.71 M/mm3 (4.00-5.60); RDW 14.7 % (11.9-15.9); WHITE BLOOD COUNT 4.3 K/mm3 (4.0-10.0)
[2018-12-02] MEDS: TAMSULOSIN HCL 0.4 MG CAP PO SCH (10:30)
[2018-12-02] MEDS: amLODIPine BESYLATE 10 MG TABLET (FP) PO SCH (10:30)
[2018-12-02] MEDS: NICOTINE 14 MG/24 HOURS TOPICAL PATCH TD SCH (10:30)
[2018-12-02] MEDS: PRENATAL VITAMINS W/ FOLIC ACID TABLET (FP) PO SCH (10:30)
--- NOTE | 2018-12-02 10:50 | PN ---
S CIWA - CIWA Score Nausea/Vomitin-Mild Nausea/No Vomiting Muscle Tremors: 3 Anxiety: 2 Agitation: 1-Slight > Activity Paroxysmal Sweats: 1-Minimal Palms Moist Orientation: 2-Disoriented Date<2 days Tacttile Disturbances: 0-None Auditory Disturbances: 0-None Visual Disturbances: 0-None Headache: 2-Mild CIWA-Ar Total Score: 12 S Progress Note (SOAP) Subjective: tired history of hypertension treated with amlodopine none adherence with the medication "I was drinking" Objective: 12/02/18 10:52 Vital Signs Temperature 98.4 F 12/02/18 09:09 Pulse Rate 65 12/02/18 09:09 Respiratory Rate 18 12/02/18 09:09 Blood Pressure 136/76 12/02/18 09:09 O2 Sat by Pulse Oximetry (%) Laboratory Last Values WBC 4.3 K/mm3 (4.0-10.0) 12/02/18 07:40 RBC 4.71 M/mm3 (4.00-5.60) 12/02/18 07:40 Hgb 13.8 GM/dL (11.7-16.9) 12/02/18 07:40 Hct 41.8 % (35.4-49) 12/02/18 07:40 MCV 88.8 fl (80-96) 12/02/18 07:40 MCH 29.4 pg (25.7-33.7) 12/02/18 07:40 MCHC 33.1 g/dl (32.0-35.9) 12/02/18 07:40 RDW 14.7 % (11.9-15.9) 12/02/18 07:40 Plt Count 343 K/MM3 (134-434) 12/02/18 07:40 MPV 7.2 fl (7.5-11.1) L 12/02/18 07:40 Sodium 134 mmol/L (136-145) L 12/02/18 07:40 Potassium 4.6 mmol/L (3.5-5.1) 12/02/18 07:40 Chloride 98 mmol/L (98-107) 12/02/18 07:40 Carbon Dioxide 31 mmol/L (21-32) 12/02/18 07:40 Anion Gap 5 MMOL/L (8-16) L 12/02/18 07:40 BUN 7 mg/dL (7-18) 12/02/18 07:40 Creatinine 0.7 mg/dL (0.55-1.3) 12/02/18 07:40 Est GFR (CKD-EPI)AfAm 121.41 12/02/18 07:40 Est GFR (CKD-EPI)NonAf 104.76 12/02/18 07:40 POC Glucometer 91 UNITS (80-120) 12/02/18 07:38 Random Glucose 74 mg/dL (74-106) 12/02/18 07:40 Calcium 8.7 mg/dL (8.5-10.1) 12/02/18 07:40 Total Bilirubin 1.1 mg/dL (0.2-1) H 12/02/18 07:40 AST 16 U/L (15-37) 12/02/18 07:40 ALT 21 U/L (13-61) 12/02/18 07:40 Alkaline Phosphatase 80 U/L (45-117) 12/02/18 07:40 Total Protein 7.0 g/dl (6.4-8.2) 12/02/18 07:40 Albumin 3.7 g/dl (3.4-5.0) 12/02/18 07:40 RPR Titer Nonreactive (NONREACTIVE) 12/02/18 07:40 lab noted Assessment: 12/02/18 10:52 alcohol withdrawal sx Plan: continue detox
--- NOTE | 2018-12-02 17:52 | CONSULT ---
[facility] Psychiatric Consult - Data Date of interview: 12/02/18 Admission source: [facility] Identifying data: One of multiple admissions to [facility] for this 57 y/o AA returning for detoxification (alcohol). Interviewed at [address] [place] [address]. Patient is single without children, domiciled, unemployed and supported on SSI benefits. Substance Abuse History: Discussed in this session. Details in current [facility] report as follows : Smoking history: Current every day smoker. Have you smoked in the past 12 months: Yes. Aproximately how many cigarettes per day: 10. Cigars Per Day: 0. Hx Chewing Tobacco Use: No. Initiated information on smoking cessation: Yes. 'Breaking Loose' booklet given: 12/01/18. - Substance & Tx. History. Hx Alcohol Use: Yes. Hx Substance Use: No. Substance Use Type : Alcohol. Hx Substance Use Treatment: Yes. - Substances abused. Alcohol. Substance route: Oral. Frequency: Daily. Amount used: beer- 3 (24oz). Age of first use: 17. Date of last use: 12/01/18 Medical History: Diabetes melllitus, hepatitis C, GERD, history of eye surgery ( detached retina in left eye), hypertension, bronchial asthma, BPH (benign prostatic hyperplasia), arthritis (walks with cane), peripheral neuropathy and past treatment for syphilis + gonorrhea. Psychiatric History: Patient reports " over 10 psychiatric hospitalizations " for a mental illness that started around the age of [age] (behavioral disturbances , poor academic performance, auditory hallucinations). Diagnosed with Paranoid Schizophrenia and presenting with a history of multiple psychiatric hospitalizations ([facility], [facility], [facility], [facility], [facility], [facility], [facility], [facility]). Mr East indicates that he gets his psychiatric OPD care at the [facility] mental health clinic in the [place]. Patient is maintained on a regimen of prolixin 10 mg/bid + cogentin 2 mg/bid (self-report). Endorses fair adherence to medications. Patient denies history of suicide attempts. Physical/Sexual Abuse/Trauma History: Not discussed in this session. Patient declines. Additional Comment: Drug screen is negative. Mental Status Exam - Mental Status Exam Alert and Oriented to: Time, Place, Person Cognitive Function: Grossly Intact Patient Appearance: Unkempt, Disheveled Mood: Nervous, Withdrawn Affect: Mood Congruent, Constricted Patient Behavior: Fatigued, Appropriate, Cooperative Speech Pattern: Clear Voice Loudness: Normal Thought Process: Goal Oriented Thought Disorder: Not Present Hallucinations: Denies Suicidal Ideation: Denies Homicidal Ideation: Denies Insight/Judgement: Poor Sleep: Fair Appetite: Good Muscle strength/Tone: Normal Gait/Station: Other Additional Comments: not observed ; stayed in bed during interview Psychiatric Findings - Problem List ([place] 1, 2,3) (1) Alcohol dependence with uncomplicated withdrawal Current Visit: Yes Status: Acute (2) Nicotine dependence Current Visit: Yes Status: Chronic Qualifiers: Nicotine product type: cigarettes Substance use status: in withdrawal Qualified Code(s): F17.213 - Nicotine dependence, cigarettes, with withdrawal (3) Paranoid schizophrenia Current Visit: Yes Status: Chronic - Initial Treatment Plan Initial Treatment Plan: Psychoeducation. Sleep hygiene. Detoxification in progress. AA meetings. Medications : prolixin 10 mg po bid + cogentin 1 mg po bid. Side effects/benefits of both drugs are discussed with the patient. Mr East is already known to this witer and he gave his verbal consent to MD for the inclusion of these formulations in [facility] regimen of medications. Observation.
[2018-12-02] MEDS: THIAMINE HCL 100 MG TABLET (FP) PO SCH (22:29)
[2018-12-02] MEDS: BENZTROPINE MESYLATE 1 MG TABLET (FP) PO SCH (22:29)
[2018-12-03] MEDS: GABAPENTIN 100 MG CAPSULE (FP) PO SCH ×3 (05:13→22:33)
[2018-12-03] MEDS: chlordiazePOXIDE HCL 25 MG CAPSULE PO SCH ×3 (05:13→18:02)
[2018-12-03] MEDS: HYDROCHLOROTHIAZIDE 25 MG TABLET (FP) PO SCH (05:14)
[2018-12-03] MEDS: IBUPROFEN 400 MG TABLET (FP) PO PRN ×2 (05:21→18:04)
[2018-12-03] MEDS: metFORMIN HCL 500 MG TABLET (FP) PO SCH ×2 (06:11→18:02)
[2018-12-03] MEDS: TAMSULOSIN HCL 0.4 MG CAP PO SCH (10:11)
[2018-12-03] MEDS: NICOTINE 14 MG/24 HOURS TOPICAL PATCH TD SCH (10:11)
[2018-12-03] MEDS: BENZTROPINE MESYLATE 1 MG TABLET (FP) PO SCH ×2 (10:12→22:33)
[2018-12-03] MEDS: PRENATAL VITAMINS W/ FOLIC ACID TABLET (FP) PO SCH (10:12)
[2018-12-03] MEDS: amLODIPine BESYLATE 10 MG TABLET (FP) PO SCH (10:12)
--- NOTE | 2018-12-03 11:25 | PN ---
S CIWA - CIWA Score Nausea/Vomitin-No Nausea/No Vomiting Muscle Tremors: 2 Anxiety: 2 Agitation: 2 Paroxysmal Sweats: 1-Minimal Palms Moist Orientation: 0-Oriented Tacttile Disturbances: 0-None Auditory Disturbances: 0-None Visual Disturbances: 0-None Headache: 1-Very Mild CIWA-Ar Total Score: 8 S Progress Note (SOAP) Subjective: feeling better today more energy ambulating on hallway social with peers in day room Objective: 12/03/18 11:24 Vital Signs Temperature 98.7 F 12/03/18 09:07 Pulse Rate 77 12/03/18 09:07 Respiratory Rate 18 12/03/18 09:07 Blood Pressure 102/64 12/03/18 09:07 O2 Sat by Pulse Oximetry (%) Laboratory Last Values WBC 4.3 K/mm3 (4.0-10.0) 12/02/18 07:40 RBC 4.71 M/mm3 (4.00-5.60) 12/02/18 07:40 Hgb 13.8 GM/dL (11.7-16.9) 12/02/18 07:40 Hct 41.8 % (35.4-49) 12/02/18 07:40 MCV 88.8 fl (80-96) 12/02/18 07:40 MCH 29.4 pg (25.7-33.7) 12/02/18 07:40 MCHC 33.1 g/dl (32.0-35.9) 12/02/18 07:40 RDW 14.7 % (11.9-15.9) 12/02/18 07:40 Plt Count 343 K/MM3 (134-434) 12/02/18 07:40 MPV 7.2 fl (7.5-11.1) L 12/02/18 07:40 Sodium 134 mmol/L (136-145) L 12/02/18 07:40 Potassium 4.6 mmol/L (3.5-5.1) 12/02/18 07:40 Chloride 98 mmol/L (98-107) 12/02/18 07:40 Carbon Dioxide 31 mmol/L (21-32) 12/02/18 07:40 Anion Gap 5 MMOL/L (8-16) L 12/02/18 07:40 BUN 7 mg/dL (7-18) 12/02/18 07:40 Creatinine 0.7 mg/dL (0.55-1.3) 12/02/18 07:40 Est GFR (CKD-EPI)AfAm 121.41 12/02/18 07:40 Est GFR (CKD-EPI)NonAf 104.76 12/02/18 07:40 POC Glucometer 104 UNITS (80-120) 12/03/18 05:17 Random Glucose 74 mg/dL (74-106) 12/02/18 07:40 Calcium 8.7 mg/dL (8.5-10.1) 12/02/18 07:40 Total Bilirubin 1.1 mg/dL (0.2-1) H 12/02/18 07:40 AST 16 U/L (15-37) 12/02/18 07:40 ALT 21 U/L (13-61) 12/02/18 07:40 Alkaline Phosphatase 80 U/L (45-117) 12/02/18 07:40 Total Protein 7.0 g/dl (6.4-8.2) 12/02/18 07:40 Albumin 3.7 g/dl (3.4-5.0) 12/02/18 07:40 RPR Titer Nonreactive (NONREACTIVE) 12/02/18 07:40 lab noted Assessment: 12/03/18 11:25 alcohol withdrawal sx Plan: continue detox
[2018-12-03] MEDS ORDERED: guaiFENesin 200 MG/10 ML 10 ML UNIT-DOSE CUPS PO PRN (18:09)
[2018-12-03] MEDS: ALBUTEROL SO4 8 GM HFA INHALER IH PRN (18:52)
[2018-12-03] MEDS: THIAMINE HCL 100 MG TABLET (FP) PO SCH (22:33)
[2018-12-03] MEDS: chlordiazePOXIDE HCL 10 MG CAPSULE PO SCH (22:33)
[2018-12-03] MEDS ORDERED: chlordiazePOXIDE HCL 10 MG CAPSULE PO PRN (23:00)
[2018-12-04] MEDS: chlordiazePOXIDE HCL 10 MG CAPSULE PO SCH ×3 (05:21→17:47)
[2018-12-04] MEDS: GABAPENTIN 100 MG CAPSULE (FP) PO SCH ×3 (05:21→22:53)
[2018-12-04] MEDS: HYDROCHLOROTHIAZIDE 25 MG TABLET (FP) PO SCH (05:21)
[2018-12-04] MEDS: IBUPROFEN 400 MG TABLET (FP) PO PRN (05:21)
[2018-12-04] MEDS: metFORMIN HCL 500 MG TABLET (FP) PO SCH ×2 (07:29→17:47)
[2018-12-04] MEDS: BENZTROPINE MESYLATE 1 MG TABLET (FP) PO SCH ×2 (10:36→22:54)
[2018-12-04] MEDS: amLODIPine BESYLATE 10 MG TABLET (FP) PO SCH (10:36)
[2018-12-04] MEDS: TAMSULOSIN HCL 0.4 MG CAP PO SCH (10:36)
[2018-12-04] MEDS: NICOTINE 14 MG/24 HOURS TOPICAL PATCH TD SCH (10:36)
[2018-12-04] MEDS: PRENATAL VITAMINS W/ FOLIC ACID TABLET (FP) PO SCH (10:36)
[2018-12-04] MEDS: ALBUTEROL SO4 8 GM HFA INHALER IH PRN (13:39)
--- NOTE | 2018-12-04 15:06 | PN ---
[facility] CIWA - CIWA Score Nausea/Vomitin-Mild Nausea/No Vomiting Muscle Tremors: 1-None Visible, but [place] Anxiety: 1-Mildly Anxious Agitation: 1-Slight > Activity Paroxysmal Sweats: No Perspiration Orientation: 0-Oriented Tacttile Disturbances: 0-None Auditory Disturbances: 0-None Visual Disturbances: 0-None Headache: 0-None Present CIWA-Ar Total Score: 4 BHS Progress Note (SOAP) Subjective: feeling better today ambulating with cane on hallway Objective: 12/04/18 15:06 Vital Signs Temperature 96.1 F L 12/04/18 13:26 Pulse Rate 87 12/04/18 13:26 Respiratory Rate 18 12/04/18 13:26 Blood Pressure 109/65 12/04/18 13:26 O2 Sat by Pulse Oximetry (%) Laboratory Last Values WBC 4.3 K/mm3 (4.0-10.0) 12/02/18 07:40 RBC 4.71 M/mm3 (4.00-5.60) 12/02/18 07:40 Hgb 13.8 GM/dL (11.7-16.9) 12/02/18 07:40 Hct 41.8 % (35.4-49) 12/02/18 07:40 MCV 88.8 fl (80-96) 12/02/18 07:40 MCH 29.4 pg (25.7-33.7) 12/02/18 07:40 MCHC 33.1 g/dl (32.0-35.9) 12/02/18 07:40 RDW 14.7 % (11.9-15.9) 12/02/18 07:40 Plt Count 343 K/MM3 (134-434) 12/02/18 07:40 MPV 7.2 fl (7.5-11.1) L 12/02/18 07:40 Sodium 134 mmol/L (136-145) L 12/02/18 07:40 Potassium 4.6 mmol/L (3.5-5.1) 12/02/18 07:40 Chloride 98 mmol/L (98-107) 12/02/18 07:40 Carbon Dioxide 31 mmol/L (21-32) 12/02/18 07:40 Anion Gap 5 MMOL/L (8-16) L 12/02/18 07:40 BUN 7 mg/dL (7-18) 12/02/18 07:40 Creatinine 0.7 mg/dL (0.55-1.3) 12/02/18 07:40 Est GFR (CKD-EPI)AfAm 121.41 12/02/18 07:40 Est GFR (CKD-EPI)NonAf 104.76 12/02/18 07:40 POC Glucometer 101 UNITS (80-120) 12/04/18 05:20 Random Glucose 74 mg/dL (74-106) 12/02/18 07:40 Calcium 8.7 mg/dL (8.5-10.1) 12/02/18 07:40 Total Bilirubin 1.1 mg/dL (0.2-1) H 12/02/18 07:40 AST 16 U/L (15-37) 12/02/18 07:40 ALT 21 U/L (13-61) 12/02/18 07:40 Alkaline Phosphatase 80 U/L (45-117) 12/02/18 07:40 Total Protein 7.0 g/dl (6.4-8.2) 12/02/18 07:40 Albumin 3.7 g/dl (3.4-5.0) 12/02/18 07:40 RPR Titer Nonreactive (NONREACTIVE) 12/02/18 07:40 lab noted Assessment: 12/04/18 15:06 withdrawal sx Plan: continue detox
[2018-12-04] MEDS: METHOCARBAMOL 500 MG TABLET PO PRN (17:48)
[2018-12-04] MEDS ORDERED: METHYL SALICYLATE/MENTHOL OINT 30 GM TUBE TP SCH (22:00)
[2018-12-04] MEDS: THIAMINE HCL 100 MG TABLET (FP) PO SCH (22:54)
[2018-12-04] MEDS ORDERED: chlordiazePOXIDE HCL 10 MG CAPSULE PO SCH (23:00)
[2018-12-05] MEDS: METHOCARBAMOL 500 MG TABLET PO PRN (05:21)
[2018-12-05] MEDS: IBUPROFEN 400 MG TABLET (FP) PO PRN (05:21)
[2018-12-05] MEDS: GABAPENTIN 100 MG CAPSULE (FP) PO SCH (05:21)
[2018-12-05] MEDS: HYDROCHLOROTHIAZIDE 25 MG TABLET (FP) PO SCH (05:21)
[2018-12-05 06:14] VITALS: BP 112/68; PULSE 76; TEMP 97.4
[2018-12-05] MEDS: metFORMIN HCL 500 MG TABLET (FP) PO SCH (07:11)
--- NOTE | 2018-12-05 15:42 | DS ---
[facility] Detox Discharge Summary Admission Date: 12/01/18 Discharge Date: 12/05/18 - History Present History: Alcohol Dependence Additional Comments: 57 years old male admitted on 12/01/18 for alcohol withdrawal stabilization ambulating with cane completed detox regimen aftercare [facility] Pertinent Past History: bring in medication list and lab report to aftercare appointment - Physical Exam Results Vital Signs: Vital Signs Temperature 97.4 F L 12/05/18 06:14 Pulse Rate 76 12/05/18 06:14 Respiratory Rate 18 12/05/18 06:30 Blood Pressure 112/68 12/05/18 06:14 O2 Sat by Pulse Oximetry (%) Pertinent Admission Physical Exam Findings: alcohol withdrawal sx Laboratory Last Values WBC 4.3 K/mm3 (4.0-10.0) 12/02/18 07:40 RBC 4.71 M/mm3 (4.00-5.60) 12/02/18 07:40 Hgb 13.8 GM/dL (11.7-16.9) 12/02/18 07:40 Hct 41.8 % (35.4-49) 12/02/18 07:40 MCV 88.8 fl (80-96) 12/02/18 07:40 MCH 29.4 pg (25.7-33.7) 12/02/18 07:40 MCHC 33.1 g/dl (32.0-35.9) 12/02/18 07:40 RDW 14.7 % (11.9-15.9) 12/02/18 07:40 Plt Count 343 K/MM3 (134-434) 12/02/18 07:40 MPV 7.2 fl (7.5-11.1) L 12/02/18 07:40 Sodium 134 mmol/L (136-145) L 12/02/18 07:40 Potassium 4.6 mmol/L (3.5-5.1) 12/02/18 07:40 Chloride 98 mmol/L (98-107) 12/02/18 07:40 Carbon Dioxide 31 mmol/L (21-32) 12/02/18 07:40 Anion Gap 5 MMOL/L (8-16) L 12/02/18 07:40 BUN 7 mg/dL (7-18) 12/02/18 07:40 Creatinine 0.7 mg/dL (0.55-1.3) 12/02/18 07:40 Est GFR (CKD-EPI)AfAm 121.41 12/02/18 07:40 Est GFR (CKD-EPI)NonAf 104.76 12/02/18 07:40 POC Glucometer 95 UNITS (80-120) 12/05/18 05:20 Random Glucose 74 mg/dL (74-106) 12/02/18 07:40 Calcium 8.7 mg/dL (8.5-10.1) 12/02/18 07:40 Total Bilirubin 1.1 mg/dL (0.2-1) H 12/02/18 07:40 AST 16 U/L (15-37) 12/02/18 07:40 ALT 21 U/L (13-61) 12/02/18 07:40 Alkaline Phosphatase 80 U/L (45-117) 12/02/18 07:40 Total Protein 7.0 g/dl (6.4-8.2) 12/02/18 07:40 Albumin 3.7 g/dl (3.4-5.0) 12/02/18 07:40 RPR Titer Nonreactive (NONREACTIVE) 12/02/18 07:40 lab noted - Treatment Hospital Course: Detox Protocol Followed, Detoxed Safely, Responded well, Discharged Condition Good, Rehab Referral Accepted Patient has Accepted a Rehab Referral to: [facility] - Medication Discharge Medications: Ambulatory Orders Benztropine Mesylate [Cogentin -] 2 mg PO BID #60 tablet 08/12/17 metFORMIN HCL [Metformin HCl] 500 mg PO BID 08/13/17 Fluphenazine HCl [Prolixin -] 10 mg PO TID 07/06/18 Gabapentin [Neurontin -] 100 mg PO Q8H #90 capsule 07/10/18 Naproxen [Naprosyn -] 500 mg PO BID #30 tablet 07/10/18 Albuterol Sulfate Inhaler - [Ventolin HFA Inhaler -] 2 inh PO Q4H PRN #1 inhaler 12/04/18 Amlodipine Besylate [Norvasc -] 10 mg PO DAILY #30 tablet 12/04/18 Hydrochlorothiazide [Hctz -] 50 mg PO DAILY@0600 #14 tablet 12/04/18 Tamsulosin HCl [Flomax -] 0.4 mg PO DAILY@0830 #30 cap.er.24h 12/04/18 metFORMIN HCL [Glucophage -] 500 mg PO BID@0700,1630 #30 tablet 12/04/18 - Diagnosis (1) Alcohol dependence with uncomplicated withdrawal Status: Acute (2) Asthma Status: Chronic Qualifiers: Asthma severity: mild Asthma persistence: intermittent Asthma complication type: with status asthmaticus Qualified Code(s): J45.22 - Mild intermittent asthma with status asthmaticus (3) BPH (benign prostatic hyperplasia) Status: Chronic Qualifiers: Lower urinary tract symptom presence: symptoms present Lower urinary tract symptom detail: urinary hesitancy Qualified Code(s): N40.1 - Benign prostatic hyperplasia with lower urinary tract symptoms; R39.11 - Hesitancy of micturition (4) Blind left eye Status: Chronic (5) Diabetes mellitus type 2, diet-controlled Status: Chronic (6) GERD (gastroesophageal reflux disease) Status: Chronic Qualifiers: Esophagitis presence: without esophagitis Qualified Code(s): K21.9 - Gastro -esophageal reflux disease without esophagitis (7) Hepatitis C Status: Chronic Qualifiers: Viral hepatitis chronicity: carrier Qualified Code(s): B18.2 - Chronic viral hepatitis C (8) Nicotine dependence Status: Acute Qualifiers: Nicotine product type: cigarettes Substance use status: in withdrawal Qualified Code(s): F17.213 - Nicotine dependence, cigarettes, with withdrawal (9) Use of cane as ambulatory aid Status: Chronic - AMA Did Patient Leave Against Medical Advice: No
== END 2018-12-05 09:00 | disposition home or self-care (01) | DRG 775 ==
LOC: YASAS 19:35 → Y3N 22:17
PROVIDERS: ADMIT Surgery; ATTEND Surgery
PROC: HZ2ZZZZ Detoxification Services for Substance Abuse Treatment (ICD-10-PCS; principal; 2018-12-01)
DX: F10.230 Alcohol dependence with withdrawal, uncomplicated (principal); F17.213 Nicotine dependence, cigarettes, with withdrawal; F20.0 Paranoid schizophrenia; J45.22 Mild intermittent asthma with status asthmaticus; N40.1 Benign prostatic hyperplasia with lower urinary tract symptoms; R39.11 Hesitancy of micturition; H54.40 Blindness, one eye, unspecified eye; E11.9 Type 2 diabetes mellitus without complications; K21.9 Gastro-esophageal reflux disease without esophagitis; G62.9 Polyneuropathy, unspecified; M19.90 Unspecified osteoarthritis, unspecified site; R26.2 Difficulty in walking, not elsewhere classified; Z99.89 Dependence on other enabling machines and devices; Z87.438 Personal history of other diseases of male genital organs; Z79.84 Long term (current) use of oral hypoglycemic drugs
CPT/HCPCS: 36415; 80053; 82962; 85027; 86593